=== PATIENT | female | born 2000 ===

== ENCOUNTER 2020-09-18 19:24 | Inpatient (IN) | payer OTHER ==
[~2020-09-18] VITALS: Ht 152 cm; Wt 91.5 kg
[2020-09-18] MEDS ORDERED: D5 LR IV SOLUTION 1,000 ML IV ONE (19:45)
--- NOTE | 2020-09-18 19:45 | NUR ---
NANCY DIALLO presented to unit via ambulatory from ED, accompanied by s/o, with c/o INDUCTION 40 12/22 NANCY DIALLO weighed, gowned, voided, and to bed. EFHM and TOCO applied, VS taken. NANCY DIALLO oriented to bed controls, call light, TV, heat, and A/C controls.
[2020-09-18] MEDS ORDERED: LACTATED RINGERS 1,000 ML IV SCH (19:58)
[2020-09-18 20:00] VITALS: BP 137/71
[2020-09-18] MEDS ORDERED: MINERAL OIL CONCENTRATE 99.9% 15 ML UDC TOP PRN (20:00)
[2020-09-18] MEDS ORDERED: MISOPROSTOL 100 MCG (CYTOTEC) TAB PO NR (20:00)
[2020-09-18 20:17] LABS: BASOPHILS % (AUTO) 1 % (0-10); EOSINOPHILS # (AUTO) 0.3 10^3/uL (0.0-0.3); EOSINOPHILS % (AUTO) 3 % (0-10); HEMATOCRIT 32 % (35-52); HEMOGLOBIN 10.8 g/dL (11.5-16.0); LYMPHOCYTES # (AUTO) 2.5 10^3/uL (1.0-4.0); LYMPHOCYTES % (AUTO) 34 % (12-44); MEAN CORPUSCULAR HEMOGLOBIN 29 pg (25-34); MEAN CORPUSCULAR HGB CONC 34 g/dL (32-36); MEAN CORPUSCULAR VOLUME 87 fL (80-99); MEAN PLATELET VOLUME 11.1 fL (9.0-12.2); MONOCYTES # (AUTO) 0.6 10^3/uL (0.0-1.0); MONOCYTES % (AUTO) 8 % (0-12); NEUTROPHILS # (AUTO) 4.1 10^3/uL (1.8-7.8); NEUTROPHILS % (AUTO) 55 % (42-75); PLATELET COUNT 185 10^3/uL (130-400); WHITE BLOOD COUNT 7.6 10^3/uL (4.3-11.0)
[2020-09-18] MEDS: D5 LR IV SOLUTION 1,000 ML IV SCH (20:18)
[2020-09-18 20:39] VITALS: BP 137/71
[2020-09-18 21:30] VITALS: BP 122/84
[2020-09-18 22:30] VITALS: BP 122/58
[2020-09-18 23:30] VITALS: BP 130/61
[2020-09-19] VITALS (83 sets, daily range): BP systolic 68–214; BP diastolic 32–103
[2020-09-19] MEDS ORDERED: MISOPROSTOL 100 MCG (CYTOTEC) TAB PO SCH
[2020-09-19] MEDS ORDERED: BUTORPHANOL INJ 2 MG/ML (STADOL) VIAL ONE ×2 (01:00→04:47)
[2020-09-19] MEDS ORDERED: BUTORPHANOL INJ 2 MG/ML (STADOL) VIAL IV ONE ×2 (01:15→05:00)
[2020-09-19] MEDS: D5 LR IV SOLUTION 1,000 ML IV SCH ×2 (04:08→12:05)
--- NOTE | 2020-09-19 07:10 | NUR ---
Report from Arlen Cheng RN
--- NOTE | 2020-09-19 07:40 | NUR ---
Dr Jones at bedside discussing plan of pt care with pt and SO. Dr Jones has talked with Dr Ferreira. Plan is to get epidural first, Start pitocin, then AROM. Pt states she does not want to feel anything with labor. RN and Dr Jones both (at separate times) informed pt that that was an unrealistic expectation. Discussed how the epidural worked, ideally should take away sharp pain with contractions but will most likely still feel pressure. LR bolus started for epidural placement. Anesthesia notified of pt wanting epidural. Pt aware that anesthesia is in a procedure right now and will get epidural after anesthesia is finished with their procedure.
--- NOTE | 2020-09-19 08:17 | NUR ---
Dr Matute, information tech for OB today, notified of pt and current report
--- NOTE | 2020-09-19 08:34 | History & Physical-OB/GYN ---
GRZEGORZ JONES MD 09/19/20 0834: History of Present Illness History of Present Illness Reason for visit/HPI induction of labor for post dates Date of Admission Sep 18, 2020 at 19:24 Date Seen by a Provider: Sep 19, 2020 Time Seen by a Provider: 08:24 I consulted on this patient on 09/19/20 08:23 Attending Physician Antionette Ferreira MD Admitting Physician No,Local Physician Consult Patient presented to labor and delivery for scheduled induction of labor. She had Cytotec given orally x2 doses. She is now feeling her contractions somewhat and desires an epidural. She is very anxious about starting pitocin or feeling any pain during her delivery. Otherwise, no other complaints. Allergies and Home Medications Allergies Coded Allergies: No Known Drug Allergies (Unverified , 09/18/20) Patient Home Medication List Home Medication List Reviewed: Yes Past Tadsbrr-Hqihib-Qqxala Hx Patient Social History Alcohol Use: Denies Use Recreational Drug Use: No Smoking Status: Never a Smoker Physical Abuse Screen: No Sexual Abuse: No Recent Foreign Travel: No Contact w/other who traveled: No Recent Infectious Disease Expo: No Immunizations Up To Date Date of Influenza Vaccine: Jul 16, 2020 Seasonal Allergies Seasonal Allergies: No Surgeries No Respiratory No Cardiovascular No Neurological No Reproductive System Expected Date of Delivery: Sep 16, 2020 Genitourinary No Gastrointestinal No Musculoskeletal No Endocrine History of Endocrine Disorders: No HEENT History of HEENT Disorders: No Cancer No Psychosocial History of Psychiatric Problem: Yes Behavioral Health Disorders: Depression Integumentary History of Skin or Integumenta: No Blood Transfusions History of Blood Disorders: No Adverse Reaction to a Blood Tr: No Family Medical History Family Hx: Diabetes mellitus 19 FATHER 19 MOTHER Review of Systems Constitutional: no symptoms reported EENTM: no symptoms reported Respiratory: no symptoms reported Cardiovascular: no symptoms reported Gastrointestinal: no symptoms reported Genitourinary: no symptoms reported : Yes Musculoskeletal: no symptoms reported Skin: no symptoms reported Psychiatric/Neurological: No Symptoms Reported, Anxiety Physical Exam Physical Exam Vital Signs Vital Signs Date Time Temp Pulse Resp B/P (MAP) Pulse Ox O2 Delivery O2 Flow Rate FiO2 09/19/20 06:30 78 18 110/57 (74) Room Air 09/19/20 05:30 36.3 78 18 108/78 (88) Room Air 09/19/20 04:30 83 18 119/74 (89) Room Air 09/19/20 03:30 88 18 132/63 (86) Room Air 09/19/20 02:30 86 18 127/57 (80) Room Air 09/19/20 01:30 85 18 123/67 (85) Room Air 09/19/20 00:30 36.5 80 18 139/77 (97) Room Air 09/18/20 23:30 80 18 130/61 (84) Room Air 09/18/20 22:30 79 18 122/58 (79) Room Air 09/18/20 21:30 88 18 122/84 (97) Room Air 09/18/20 20:39 36.5 102 18 98 Room Air 09/18/20 20:00 36.5 102 18 137/71 (93) Room Air Capillary Refill : Less Than 3 Seconds Labs Laboratory Tests 09/18/20 20:00: White Blood Count 7.6, Red Blood Count 3.67L, Hemoglobin 10.8L, Hematocrit 32L, Mean Corpuscular Volume 87, Mean Corpuscular Hemoglobin 29, Mean Corpuscular Hemoglobin Concent 34, Red Cell Distribution Width 13.1, Platelet Count 185, Mean Platelet Volume 11.1, Immature Granulocyte % (Auto) 0, Neutrophils (%) (Auto) 55, Lymphocytes (%) (Auto) 34, Monocytes (%) (Auto) 8, Eosinophils (%) (Auto) 3, Basophils (%) (Auto) 1, Neutrophils # (Auto) 4.1, Lymphocytes # (Auto) 2.5, Monocytes # (Auto) 0.6, Eosinophils # (Auto) 0.3, Basophils # (Auto) 0.0, Immature Granulocyte # (Auto) 0.0 General Appearance: No Apparent Distress Respiratory: No Accessory Muscle Use, No Respiratory Distress Cardiovascular: Normal Peripheral Pulses Abdominal: non tender, soft Labia: WNL Vagina: WNL Cervix OS: open Extremity: Normal Range of Motion, Non Tender Assessment/Plan Assessment and Plan 20 y/o at 40w3d by LMP (QUINN 09/16/20) admitted for induction of labor due to post dates - A+, Ab-, RI, GC/Ct -/-, RPR-, Hep B-, HIV-, GBS- - s/p flu and Tdap - initial cervical check by nursing staff 2/50%/-1; s/p Cytotec PO x2 doses overnight - Admit, CLD, D5LR, CEFM/TOCO, anesthesia consult for epidural - Category 1 strip, FHR 125, moderate variability; 3 contractions in 10 minutes - Plan for next check after epidural; will start Pitocin and likely AROM if well engaged at next check patient seen and discussed with Dr. Hanna Jones MD [facility] Resident Physician, PGY-2 Problems: (1) Elective induction of labor planned Admission Diagnosis Elective induction of labor for post dates Admission Status: Inpatient Order (span 2 midnights) Reason for Inpatient Admission: Induction of labor for post dates Diagnosis/Problems Diagnosis/Problems (1) Elective induction of labor planned Clinical Quality Measures DVT/VTE Risk/Contraindication: Risk Factor Score Per Nursin RFS Level Per Nursing on Admit: 1=Low/No VTE PPX ANTIONETTE FERREIRA MD 09/20/20 1006: Allergies and Home Medications Allergies Coded Allergies: No Known Drug Allergies (Unverified , 09/18/20) Past Mqledwo-Ixoltw-Hwbwby Hx Family Medical History Family Hx: Diabetes mellitus 19 FATHER 19 MOTHER Supervisory-Addendum Brief Supervisory Addendum Verification and Attestation of Medical Student E/M Service A Resident Physician performed and documented this service in my presence. I reviewed and verified all information documented by the medical student and made modifications to such information, when appropriate. I personally performed the physical exam and medical decision making. Antionette Ferreira, Sep 20, 2020,10:06 GRZEGORZ JONES MD Sep 19, 2020 08:34 ANTIONETTE FERREIRA MD Sep 20, 2020 10:06
[2020-09-19] MEDS ORDERED: fentaNYL 2 mcg/ml BUPIVA 0.125 100 ML ONE (08:51)
[2020-09-19] MEDS: fentaNYL 2 mcg/ml BUPIVA 0.125 100 ML EPI PRN ×2 (09:22→17:17)
[2020-09-19] MEDS ORDERED: LACTATED RINGERS 1,000 ML IV SCH (09:28)
[2020-09-19] MEDS ORDERED: OXYTOCIN PRE-MIX DRIP 500 ML IV ONE (09:30)
[2020-09-19] MEDS ORDERED: NALOXONE 0.4 MG/ML 1 ML (NARCAN) VIAL IV PRN ×2 (09:30)
[2020-09-19] MEDS ORDERED: METOCLOPRAMIDE INJ 10 MG/2 ML (REGLAN) IV PRN (09:30)
[2020-09-19] MEDS ORDERED: diphenhydrAMINE 50 MG/ML INJ (BENADRYL) IV PRN (09:30)
[2020-09-19] MEDS ORDERED: ONDANSETRON 4 MG/2 ML (SDV) Z0FRAN IV PRN (09:30)
[2020-09-19] MEDS ORDERED: EPIDURAL (fentaNYL 2 MCG/ML BUPIVA 0.125%)100 ML BAG EPI SCH (09:30)
[2020-09-19] MEDS ORDERED: OXYTOCIN PRE-MIX DRIP 500 ML IV SCH (09:32)
--- NOTE | 2020-09-19 09:52 | Labor Progress Note ---
GRZEGORZ JONES MD 09/19/20 0952: Labor Progress Note Labor Progress Note Date Seen by Provider: Sep 19, 2020 Time Seen by Provider: 09:50 Subjective: Epidural is in place, not feeling any contractions. She is having a little bit of nausea, thinks this is due to her contractions. Objective: (Can we insert 24 hour vitals here?) Cervical exam: 3/75%/-2 Consistency: soft Position: mid Presentation: cephalic heart tones: 130 beats per minute, moderate variability, reactive Tocometer: 3 ctx/10 minutes - s/p AROM w/ clear fluid at 09:45 Assessment/Plan: Yecenia Urena is a (20 /Para 12/9 ,Gestational Age (wks)40 here for induction of labor. CEFM/TOCO Start pitocin Anesthesia: epidural Anticipate vaginal delivery. Next check in 2-4 hours or as clinically indicated d/w Dr. Hanna Jones MD [facility] Resident Physician, PGY-2 Vitals - Labs Vital Signs - I&O Vital Signs Date Time Temp Pulse Resp B/P (MAP) Pulse Ox O2 Delivery O2 Flow Rate FiO2 09/19/20 06:30 78 18 110/57 (74) Room Air 09/19/20 05:30 36.3 78 18 108/78 (88) Room Air 09/19/20 04:30 83 18 119/74 (89) Room Air 09/19/20 03:30 88 18 132/63 (86) Room Air 09/19/20 02:30 86 18 127/57 (80) Room Air 09/19/20 01:30 85 18 123/67 (85) Room Air 09/19/20 00:30 36.5 80 18 139/77 (97) Room Air 09/18/20 23:30 80 18 130/61 (84) Room Air 09/18/20 22:30 79 18 122/58 (79) Room Air 09/18/20 21:30 88 18 122/84 (97) Room Air 09/18/20 20:39 36.5 102 18 98 Room Air 09/18/20 20:00 36.5 102 18 137/71 (93) Room Air Labs Laboratory Tests 09/18/20 20:00: White Blood Count 7.6, Red Blood Count 3.67L, Hemoglobin 10.8L, Hematocrit 32L, Mean Corpuscular Volume 87, Mean Corpuscular Hemoglobin 29, Mean Corpuscular Hemoglobin Concent 34, Red Cell Distribution Width 13.1, Platelet Count 185, Mean Platelet Volume 11.1, Immature Granulocyte % (Auto) 0, Neutrophils (%) (Auto) 55, Lymphocytes (%) (Auto) 34, Monocytes (%) (Auto) 8, Eosinophils (%) (Auto) 3, Basophils (%) (Auto) 1, Neutrophils # (Auto) 4.1, Lymphocytes # (Auto) 2.5, Monocytes # (Auto) 0.6, Eosinophils # (Auto) 0.3, Basophils # (Auto) 0.0, Immature Granulocyte # (Auto) 0.[address] MD 09/20/20 1017: Supervisory-Addendum Brief Supervisory Addendum Verification and Attestation of Medical Student E/M Service A Resident Physician performed and documented this service in my presence. I reviewed and verified all information documented by the medical student and made modifications to such information, when appropriate. I personally performed the physical exam and medical decision making. Antionette Way, Sep 20, 2020,10:07 I arrived on the floor at 1800. SVE at that time was 6/75/-2. She was feeling more pressure but otherwise pain was well controlled. Blood pressures were increasing in the last few hrs. Last temp 37. After 30 mins baby continued to be tachycardic in the 180s. Re evaluation and patient was having rigors. Temp at this time was 39.9. Tylenol ordered. Covid/Flu swabs ordered. Blood pressure recycled and patient had blood pressure 180s/100s. Stat Labs ordered and IV labetalol/Amp/Gentamicin given. Blood pressure responded and patient continued to be febrile. Dr Matute was notified of change of status and OR team was called. Repeat blood pressure 200s/100s and Magnesium bolus given. Call for C/s made and patient taken back. I was present for delivery and Dr Abbott was also present for delivery. GRZEGORZ JONES MD Sep 19, 2020 09:[address] MD Sep 20, 2020 10:17
--- NOTE | 2020-09-19 10:22 | NUR ---
This RN calls Dr Ferreira with pt report. Dr Jones, Resident preformed SVE and AROM approx 0745. Dr Jones states he stretched to 3cm/75/-2. FHT down to 70bpm during SVE/AROM then recurrent variables to 60-70bpm with each UC immediately following SVE/AROM. Variables resolved approx 1010 after O2, fluid bolus, and position changes. This RN preforms SVE after placing ayala catheter, finding cervix tight 2cm/60/-2. Pitocin NOT started as ordered due to FHT; RN letting baby recover at this time. Will reevaluate at approx [id number] if FHT remain okay. Current FHT strip described to Dr Ferreira in detail. Dr Ferreira agreed with plan to hold off on pitocin at this time and possibly restart in 30 min. No new orders received.
[2020-09-19] MEDS: ONDANSETRON 4 MG/2 ML (SDV) Z0FRAN IVP PRN (12:42)
[2020-09-19] MEDS ORDERED: ONDANSETRON 4 MG/2 ML (SDV) Z0FRAN IVP PRN (12:45)
--- NOTE | 2020-09-19 14:35 | NUR ---
Dr Ferreira updated on pt report by this RN. Pt CO vaginal pain with UC. SVE by this RN . RN will call anesthesia for epidural evaluation/bolus dose. Pitocin rate at 12/hr, UC 1.5-2.5 min. Reactive FHT strip. No new orders received.
--- NOTE | 2020-09-19 14:41 | NUR ---
Rony Napier notified for epidural evaluation. Pt CO pain 06/24 with UC. RN has given 2 bolus doses without relief.
[2020-09-19] MEDS ORDERED: BUPIVACAINE 0.25% 30 ML (SENSORCAINE) VIAL ONE ×2 (14:48→19:40)
--- NOTE | 2020-09-19 14:50 | NUR ---
Dr Rony Fatima at bedside for epidural evaluation/dose admin
--- NOTE | 2020-09-19 15:36 | NUR ---
Odin Irizarry, Anesthesia shift production supervisor, called by this RN. Pt still not receiving pain relief after Niederklein dose and rate changed about 20-30 min ago. Odin KUMAR states he will come in to talk to pt about replacing epidural. Odin at bedside at 6000
--- NOTE | 2020-09-19 17:45 | NUR ---
Dr Jones at bedside. Review FHT strip and VS with this RN. Pitocin rate decreased to [address] Jones updates Dr Ferreira on pt report. Dr Ferreira coming to see pt.
--- NOTE | 2020-09-19 17:45 | NUR ---
Dr Ferreira updated on pt report by this rn and dr gore. Dr gore SVE . epidural replaced, severe hypotension after epidural replacement. 10mg ephedrine admin at 1610. FHT now tachy. Dr Ferreira on her way to see pt.
[2020-09-19] MEDS ORDERED: LACTATED RINGERS 500 ML IV SCH (18:00)
--- NOTE | 2020-09-19 18:00 | NUR ---
Dr Jones and this RN at bedside. 500ml LR bolus started per Dr Jones order. Marked variability, increase in FHR. Dr Jones reviewing FHT strip and updating Dr Ferreira.
--- NOTE | 2020-09-19 18:30 | NUR ---
Dr Ferreira on unit at 1820. RN updates Dr Ferreira on pt status. VS and FHT strip reviewed with Dr Ferreira.
[2020-09-19] MEDS ORDERED: LABETALOL HCL 20 MG/4 ML VIAL IV ONE (19:00)
--- NOTE | 2020-09-19 19:00 | NUR ---
Dr Ferreira at bedside. SVE by dr ferreira: 6 cm. Temp rechecked: 39.7C ( 103.4F). Dr Ferreira talks to pt about plan of care, will call and talk to Dr Matute, OB mayonnaise mixer for CSection. Dr Ferreira notified of pt current blood pressures: 212/93 at 1854, 214/96 at 1858. Labetolol ordered. Amp and Gent ordered. Mag ordered. Giovani called for CS. Calling surgery crew for CS. COVID ordered, repeat labs. Room setup for PUI. This RN gives report to Arlen Cheng RN at 1905. Beginning to prepare pt for Csection surgery & obtain consent for surgery.
[2020-09-19] MEDS ORDERED: AMPICILLIN 2,000 MG/14.8 ML (IV USE) ONE (19:01)
[2020-09-19] MEDS ORDERED: LABETALOL HCL 20 MG/4 ML VIAL ONE (19:01)
--- NOTE | 2020-09-19 19:05 | NUR ---
Pt report given to heladio johnston at bedside.
[2020-09-19] MEDS: AMPICILLIN FOR IV USE 2,000 MG in WATER (STERILE) FOR INJECTION 14.8 ML IV SCH (19:07)
[2020-09-19] MEDS ORDERED: ACETAMINOPHEN 500 MG TAB (TYLENOL) ONE (19:18)
[2020-09-19] MEDS ORDERED: MAGNESIUM 4 GM/100 ML IVPB 100 ML IV ONE (19:19)
[2020-09-19] MEDS ORDERED: NS IV 1000 ML 1,000 ML ONE (19:23)
[2020-09-19] MEDS ORDERED: ACETAMINOPHEN 500 MG TAB (TYLENOL) PO PRN (19:30)
[2020-09-19] MEDS ORDERED: GENTAMICIN IV SCH (19:30)
[2020-09-19] MEDS ORDERED: metroNIDAZOLE 500 MG (FLAGYL) TAB PO SCH (19:30)
[2020-09-19] MEDS ORDERED: MAGNESIUM 4 GM/100 ML IVPB 100 ML IV SCH (19:30)
[2020-09-19] MEDS ORDERED: D5W IV SCH (19:30)
[2020-09-19] MEDS ORDERED: CALCIUM GLUC. 10% 4.65 MEQ/10 ML VIAL IV PRN (19:30)
[2020-09-19] MEDS ORDERED: KETAMINE/NaCl 50 MG/5 ML SYRINGE (ED ONLY) ONE (19:36)
[2020-09-19] MEDS ORDERED: LIDOCAINE PF 2% 5 ML (XYLOCAINE) VIAL ONE (19:40)
[2020-09-19] MEDS ORDERED: METOCLOPRAMIDE INJ 10 MG/2 ML (REGLAN) ONE (19:41)
[2020-09-19] MEDS ORDERED: FAMOTIDINE 20MG/2ML IV (PEPCID) ONE (19:42)
[2020-09-19] MEDS ORDERED: ceFAZolin 2 GM IV Premixed 50 ML ONE (19:42)
[2020-09-19] MEDS ORDERED: CITRIC ACID/SOB CIT (BICITRA) 30 ML UDC ONE (19:42)
[2020-09-19] MEDS ORDERED: ceFAZolin 2 GM IV Premixed 50 ML IV ONE (19:45)
[2020-09-19] MEDS ORDERED: FAMOTIDINE 20MG/2ML IV (PEPCID) IV ONE (19:45)
[2020-09-19] MEDS ORDERED: CITRIC ACID/SOB CIT (BICITRA) 30 ML UDC PO ONE (19:45)
[2020-09-19] MEDS ORDERED: METOCLOPRAMIDE INJ 10 MG/2 ML (REGLAN) IV ONE (19:45)
[2020-09-19] MEDS ORDERED: fentaNYL INJECTION 100 MCG/2 ML AMP ONE (19:46)
[2020-09-19] MEDS ORDERED: MAGNESIUM SULFATE DRIP 500 ML IV SCH (19:50)
[2020-09-19 19:58] LABS: BASOPHILS % (AUTO) 0 % (0-10); EOSINOPHILS # (AUTO) 0.1 10^3/uL (0.0-0.3); EOSINOPHILS % (AUTO) 1 % (0-10); HEMATOCRIT 30 % (35-52); HEMOGLOBIN 10.2 g/dL (11.5-16.0); LYMPHOCYTES # (AUTO) 2.5 10^3/uL (1.0-4.0); LYMPHOCYTES % (AUTO) 23 % (12-44); MEAN CORPUSCULAR HEMOGLOBIN 30 pg (25-34); MEAN CORPUSCULAR HGB CONC 34 g/dL (32-36); MEAN CORPUSCULAR VOLUME 87 fL (80-99); MEAN PLATELET VOLUME 10.6 fL (9.0-12.2); MONOCYTES # (AUTO) 0.6 10^3/uL (0.0-1.0); MONOCYTES % (AUTO) 6 % (0-12); NEUTROPHILS # (AUTO) 7.6 10^3/uL (1.8-7.8); NEUTROPHILS % (AUTO) 70 % (42-75); PLATELET COUNT 141 10^3/uL (130-400); WHITE BLOOD COUNT 10.8 10^3/uL (4.3-11.0)
[2020-09-19 20:15] LABS: ALBUMIN 2.9 GM/DL (3.2-4.5); CHLORIDE 108 MMOL/L (98-107); POTASSIUM 3.4 MMOL/L (3.6-5.0); SODIUM 134 MMOL/L (135-145)
[2020-09-19] MEDS ORDERED: CARBOPROST (HEMABATE) 250 MCG/ML AMP IM ONE (20:15)
[2020-09-19] MEDS ORDERED: MISOPROSTOL 200 MCG (CYTOTEC) TABLET ONE (20:15)
[2020-09-19 20:18] LABS: GLUCOSE 81 MG/DL (70-105); TOTAL PROTEIN 5.5 GM/DL (6.4-8.2)
[2020-09-19 20:19] LABS: CARBON DIOXIDE 16 MMOL/L (21-32)
[2020-09-19 20:20] LABS: BILIRUBIN,TOTAL 0.3 MG/DL (0.1-1.0)
[2020-09-19] MEDS ORDERED: ONDANSETRON 4 MG/2 ML (SDV) Z0FRAN ONE (20:20)
[2020-09-19 20:21] LABS: ALKALINE PHOSPHATASE 132 U/L (40-136); CREATININE SERUM 0.94 MG/DL (0.60-1.30); GFR ESTIMATED > 60
[2020-09-19 20:22] LABS: BUN/CREATININE RATIO 11
[2020-09-19 20:24] LABS: ALANINE AMINOTRANSFERASE 7 U/L (0-55); MAGNESIUM 2.3 MG/DL (1.6-2.4)
[2020-09-19 20:25] LABS: URIC ACID 5.8 MG/DL (2.6-7.2)
[2020-09-19] MEDS ORDERED: KETOROLAC 30 MG/ML VIAL ONE (20:31)
[2020-09-19] MEDS ORDERED: MEASLES,MUMPS,RUBELLA 1 EA INJ SC SCH (21:15)
[2020-09-19] MEDS ORDERED: TETANUS,DIPTH,PERTUSS P/F (BOOSTRIX) 0.5 ML VIAL IM SCH (21:15)
--- NOTE | 2020-09-19 21:16 | Consultation ---
History of Present Illness History of Present Illness Patient Consulted On(jillian/time) 09/19/20 21:12 Date Seen by Provider: Sep 19, 2020 Time Seen by Provider: 19:55 Reason for Visit: Induction of labor post dates History of Present Illness This 20 yo female was admitted by Dr. Ferreira for induction of labor, her induction was uncomplicated short of a few elevations in her BP, she progressed to 8 cm/-1 station, but began having temp in the 103, heart variablity became minimal, and her BP spiked. I was contacted for emergent delivery Allergies and Home Medications Allergies Coded Allergies: No Known Drug Allergies (Unverified , 09/18/20) Patient Home Medication List Home Medication List Reviewed: Yes Past Ngmsegq-Jpdltc-Zklirp Hx Patient Social History Alcohol Use: Denies Use Recreational Drug Use: No Smoking Status: Never a Smoker Recent Foreign Travel: No Contact w/Someone Who Travel: No Recent Infectious Disease Expo: No Immunizations Up To Date Date of Influenza Vaccine: Jul 16, 2020 Seasonal Allergies Seasonal Allergies: No Past Medical History Surgeries: No Respiratory: No Cardiac: No Neurological: No Expected Date of Delivery: Sep 16, 2020 Genitourinary: No Gastrointestinal: No Musculoskeletal: No Endocrine: No HEENT: No Cancer: No Psychosocial: Yes Depression Integumentary: No Blood Disorders: No Adverse Reaction/Blood Tranf: No Family Medical History Diabetes mellitus 19 FATHER 19 MOTHER Review of Systems-General Constitutional: see HPI EENTM: see HPI Respiratory: see HPI Cardiovascular: see HPI Gastrointestinal: see HPI Genitourinary: see HPI : Yes Expected Date of Delivery: Sep 16, 2020 Musculoskeletal: see HPI Skin: see HPI Psychiatric/Neurological: See HPI All Other Systems Reviewed Negative Unless Noted: Yes Physical Exam-General Problems Physical Exam Vital Signs Vital Signs - First Documented 09/18/20 09/18/20 20:00 20:39 Temp 36.5 Pulse 102 Resp 18 B/P (MAP) 137/71 (93) Pulse Ox 98 O2 Delivery Room Air Capillary Refill : Less Than 3 Seconds General Appearance: moderate distress HEENT: normal ENT inspection Assessment/Plan Assessment/Plan Admission Diagnosis/Plan Diagnosis: intolerance of labor Uncontrolled intrapartum elevation in BP Acute febrile status P: Rapid COVID negative, confirmatory pending Flu swab Stat discussed with patient, and agreed upon with SO present Admission Status: Inpatient Order (span 2 midnights) Clinical Quality Measures DVT/VTE Risk/Contraindication: Risk Factor Score Per Nursin RFS Level Per Nursing on Admit: 1=Low/No VTE PPX GAIL COSBY DO Sep 19, 2020 21:16
[2020-09-19] MEDS ORDERED: CATHETER FLUSH 10 ML SYR IV SCH (22:00)
--- NOTE | 2020-09-19 22:00 | NUR ---
Pt received from recovery, placed on monitor. Report received from radio time sales supervisor. Pt sats 88-90% on 6L. Pt coherant. Deep breathing and coughing performed. Assessment completed. Lung course. Dry cough noted. FF1 below. light rubra. pt having the urge to have a bm. pt put on bed bear. +bm. pericare completed. new pad placed. RN remains at bedside.
--- NOTE | 2020-09-19 22:41 | NUR ---
Despite 6L per nc pt's o2 sat remains between 88-90%. updated. RT called and notified of pt's status.
[2020-09-19] MEDS ORDERED: RT-ALBUTEROL INHALER HFA (VENTOLIN HFA) 18 GM IH ONE (22:48)
--- NOTE | 2020-09-19 22:50 | NUR ---
RT at bedside to perform assessment and teach IS
--- NOTE | 2020-09-19 23:10 | NUR ---
Pt having the urge to have BM. Bedside commode brought in, Pt assisted to commode. No BM, pericare completed. Pt assisted back to bed.
[2020-09-19] MEDS: HYDROcodone/APAP 5 MG/325 MG (LORTAB) TAB PO PRN (23:24)
[2020-09-19] MEDS: OXYTOCIN PRE-MIX DRIP 500 ML IV SCH (23:27)
[2020-09-20] VITALS (25 sets, daily range): BP systolic 68–137; BP diastolic 41–85
--- NOTE | 2020-09-20 01:00 | NUR ---
IS performed. RN at bedside. o2 sat 93% Attempted to decrease o2 from 4L to 2L, o2 sat dropped to 88%, o2 increased back to 4L
[2020-09-20] MEDS: AMPICILLIN FOR IV USE 2,000 MG in WATER (STERILE) FOR INJECTION 14.8 ML IV SCH (01:23)
[2020-09-20] MEDS ORDERED: RT-ALBUTEROL INHALER HFA (VENTOLIN HFA) 18 GM IH PRN (02:00)
[2020-09-20] MEDS: KETOROLAC 30 MG/ML VIAL IV SCH ×5 (02:52→19:41)
[2020-09-20] MEDS ORDERED: RT-ALBUTEROL INHALER HFA (VENTOLIN HFA) 18 GM IH SCH (03:00)
[2020-09-20] MEDS: D5 LR IV SOLUTION 1,000 ML IV SCH ×5 (03:00→19:41)
[2020-09-20] MEDS: ACETAMINOPHEN 325 MG TABLET PO PRN (03:00)
--- NOTE | 2020-09-20 03:41 | NUR ---
spo2 monitor alarming, spo2 88%. Encouraged pt to take some deep breaths. 02 increased to 90%. IS given to pt to perform.
--- NOTE | 2020-09-20 03:47 | NUR ---
After performing IS o2 sat dropped down to 84% o2 increased 4L per nc
--- NOTE | 2020-09-20 03:52 | NUR ---
o2 remains 86-88% o2 increased to 5L per nc
--- NOTE | 2020-09-20 04:28 | NUR ---
o2 sat's dropped to 85% encouraged pt to take a couple deep breaths. After 2min spo2 increased to 91%. RT called to come perform albuterol inhaler Addendum: 09/20/20 at 0501 by ARLEN ROLDAN RN o2 sat's dropped to 85% encouraged pt to take a couple deep breaths. o2 increased to 6L After 2min spo2 increased to 91%. RT called to come perform albuterol inhaler
--- NOTE | 2020-09-20 04:45 | NUR ---
RT in room to perform albuterol inhaler.
--- NOTE | 2020-09-20 04:50 | NUR ---
After albuterol inhaler, sp02 95%. o2 decreased to 4L
--- NOTE | 2020-09-20 04:58 | NUR ---
RT at bedside to assess patient.
--- NOTE | 2020-09-20 04:59 | OPERATIVE REPORT ---
DATE OF SERVICE: PREOPERATIVE DIAGNOSES: 1. A 20-year-old G2, P0 at 40 weeks' gestation. 2. intolerance of labor. 3. Maternal temperature. 4. tachycardia persistent. POSTOPERATIVE DIAGNOSES: 1. A 20-year-old G2, P0 at 40 weeks' gestation. 2. intolerance of labor. 3. Maternal temperature. 4. tachycardia persistent. PROCEDURE: Primary low transverse section emergent. SURGEON: Dennis Cosby DO ANESTHESIA: Epidural, which was bolused. ESTIMATED BLOOD LOSS: 400 mL. URINE OUTPUT: 100 mL clear at the end of procedure. FLUIDS: 1850 mL of lactated Ringer's solution. FINDINGS: A live female , weight and Apgars pending. Grossly normal appearing uterus, bilateral fallopian tubes and ovaries. SPECIMEN SENT: Placenta with placental cultures. INDICATIONS FOR PROCEDURE: This 20-year-old female is a patient that was induced for postdates by Dr. Ferreira yesterday evening. Her induction was uncomplicated until this afternoon when she had progressed to approximately 7 to 8 cm, at which point she began having elevations and spikes in her blood pressure followed by elevation in her temperature. She was as high as 103 degrees Fahrenheit. At this point, heart rate became tachycardic as well with minimal to moderate variability. I was consulted for discussion of emergent delivery. When I presented and spoke with the patient, she appeared in moderate distress, was uncomfortable and was slightly apneic. After checking the patient, she was found to be 8 cm dilated; however, 0 to -1 station and I felt that she still had quite a bit of time to go before vaginal delivery were to occur. I discussed with the patient into my concerns with waiting due to her declining status and recommended proceeding with emergency . Risks of procedure were discussed with the patient in detail including risk of bleeding, infection, damage to surrounding structures including, but not limited to bowel, bladder, ureter, kidneys, possible need for reoperation, postoperative complications that may occur, recovery timeframe, risk from anesthesia, possible need for blood transfusion and even . After everything was discussed with the patient in detail, consent was obtained in the preoperative area and the patient was taken to the operating room. OPERATIVE REPORT IN DETAIL: Once in the operating room, epidural analgesia was found to be adequate. She was placed in supine position with leftward tilt, prepped and draped in normal sterile fashion. Timeout was performed. Anesthesia was tested. I then proceeded with making a Pfannenstiel skin incision with a knife and carried down to underlying fascia using the knife. The fascial incision was made with a knife and extended laterally using blunt traction. I bluntly dissect between the underlying rectus muscles and I am able to separate them with blunt traction. I then entered the peritoneum with blunt dissection and extended with blunt traction as well. An Franko ring retractor was placed within the peritoneal incision, which offers excellent lateral sidewall retraction. I then identified the lower uterine segment, which was found to be thinned out and make a low transverse incision to the vesicouterine peritoneum and bluntly dissected off the lower uterine segment. I proceeded with myotomy until membranes were visualized, at which point I extended the uterine incision laterally and superiorly using bandage scissors. The was found in the vertex presentation. With gentle fundal pressure, the 's head was elevated up to the incision where the nares and oropharynx were bulb suctioned. Anterior and posterior shoulders were delivered. was then brought to the operative field. The cord was doubly clamped and cut. was handed off to waiting nurses in attendance and Dr. Ferreira who was present for delivery. Cord blood was collected, 3-vessel cord with intact placenta was delivered spontaneously thereafter. IV Pitocin was initiated to facilitate uterine contraction. The uterus was significantly boggy. Therefore, I ordered 250 mg of Hemabate to be given IM, after which there was some uterine tone that was noted. Once the uterus was exteriorized and cleared of all endometrial clots and debris, I proceeded with closing the uterine incision using 0 Vicryl suture in running locked fashion. Second layer of imbricating 0 Monocryl was placed. Excellent hemostasis was noted after doing this. I then placed the uterus back in the pelvis and copiously irrigated the pelvis using normal saline. Once again, there was no active bleeding noted from any of my dissection planes. I placed Interceed antiadhesive over my low transverse incision and then proceeded with closing the peritoneum after removing the Franko ring retractor. The peritoneum was reapproximated using 0 Vicryl suture in a running fashion. The rectus muscle reapproximated using 3-0 Vicryl suture in interrupted fashion. The fascia was reapproximated using 0 Vicryl suture in a running fashion. Subcutaneous tissue was reapproximated using 3-0 plain interrupted subcutaneous stitch and skin reapproximated using mayra. The patient tolerated the procedure well. Due to COVID testing pending, she was left to recover in the OR room with a recovery nurse. Initial COVID rapid test was negative. She was continued on IV antibiotics, ampicillin and gentamicin. Two grams of Ancef given preoperatively for infection prophylaxis. Magnesium was stopped at the end of the procedure due to the patient's decreased oxygen saturation and my concerns of lack of respiratory drive with magnesium infusion. On 5 liters of nasal cannula, she was satting 92% to 93%; however. Her temperature did come down after the procedure to approximately 99 degrees Fahrenheit. Job ID: [id number] DocumentID: [id number] Dictated Date: 09/19/2020 21:40:59 Wax Ball Knock Out Worker Date: 09/20/2020 04:58:46 Dictated By: DENNIS COSBY DO
--- NOTE | 2020-09-20 04:59 | NUR ---
Bubbler added to oxygen at 4L, Flutter device started with patient per rt
--- NOTE | 2020-09-20 05:16 | NUR ---
Resident in to assess patient. States he will update
--- NOTE | 2020-09-20 05:30 | NUR ---
Pt has the urge to void, 02 increased to 6L for ambulation process to bedside commode. Pt assisted to bedside commode. positive void. pericare completed. sp02 dropped to 80% during process. Pt assisted back to bed. Encouraged deep breathing. after 3min o2 sat increased to 90%
[2020-09-20] MEDS: HYDROcodone/APAP 5 MG/325 MG (LORTAB) TAB PO PRN (05:42)
--- NOTE | 2020-09-20 06:00 | NUR ---
Computer Assistant notified of bed request. Pt assigned room icu room 12.
--- NOTE | 2020-09-20 06:15 | NUR ---
at bedside discussing plan of care. During conversation, pt having a difficult time talking and maintaining sat. o2 sat dropped to 85%.
--- NOTE | 2020-09-20 06:20 | NUR ---
Abdominal drsg removed. incision well approximated. clips intact.
[2020-09-20 06:33] LABS: BASOPHILS # (AUTO) 0.1 10^3/uL (0.0-0.1); BASOPHILS % (AUTO) 1 % (0-10); EOSINOPHILS # (AUTO) 0.1 10^3/uL (0.0-0.3); EOSINOPHILS % (AUTO) 1 % (0-10); HEMATOCRIT 28 % (35-52); HEMOGLOBIN 9.5 g/dL (11.5-16.0); LYMPHOCYTES # (AUTO) 1.8 10^3/uL (1.0-4.0); LYMPHOCYTES % (AUTO) 17 % (12-44); MEAN CORPUSCULAR HEMOGLOBIN 30 pg (25-34); MEAN CORPUSCULAR HGB CONC 34 g/dL (32-36); MEAN CORPUSCULAR VOLUME 89 fL (80-99); MONOCYTES # (AUTO) 0.5 10^3/uL (0.0-1.0); MONOCYTES % (AUTO) 5 % (0-12); NEUTROPHILS # (AUTO) 8.1 10^3/uL (1.8-7.8); NEUTROPHILS % (AUTO) 77 % (42-75); PLATELET COUNT 140 10^3/uL (130-400); WHITE BLOOD COUNT 10.6 10^3/uL (4.3-11.0)
[2020-09-20] MEDS ORDERED: [UNRECOGNIZED DRUG - REMARK] XX NR (07:00)
[2020-09-20 07:06] LABS: ALBUMIN 2.3 GM/DL (3.2-4.5)
--- NOTE | 2020-09-20 07:06 | Pulmonary Consultation ---
History of Present Illness History of Present Illness Date Seen by Provider: Sep 20, 2020 Time Seen by Provider: 07:00 Date of Admission Reason for Visit: Induction of labor post dates History of Present Illness 20yo G2, P0 presented at 40 weeks gestation and admitted for induction however infant was not tolerating labor so pt went for emergent . Through the night pt has been requiring increasing amounts of oxygen and has also been running a fever. Her cough started abruptly this morning and her tmax was 40.1 last night. CXR shows extensive bilateral infiltrates. Rapid COVID is negative. COVID PCR is pending. No prior episodes. Upon ICU admission pt is requiring 100% oxygen via NRB. I am consulted for pulmonary management. Allergies and Home Medications Allergies Coded Allergies: No Known Drug Allergies (Unverified , 09/18/20) Past Rgtzxlh-Rizqqm-Llsscc Hx Patient Social History Alcohol Use: Denies Use Recreational Drug Use: No Smoking Status: Never a Smoker Recent Foreign Travel: No Contact w/Someone Who Travel: No Recent Infectious Disease Expo: No Immunizations Up To Date Date of Influenza Vaccine: Jul 16, 2020 Seasonal Allergies Seasonal Allergies: No Past Medical History Surgeries: No Respiratory: No Currently Using CPAP: No Currently Using BIPAP: No Cardiac: No Neurological: No Expected Date of Delivery: Sep 16, 2020 Genitourinary: No Gastrointestinal: No Musculoskeletal: No Endocrine: No HEENT: No Cancer: No Psychosocial: Yes Depression Integumentary: No Blood Disorders: No Adverse Reaction/Blood Tranf: No Family Medical History Diabetes mellitus 19 FATHER 19 MOTHER Review of Systems Time Seen by Provider: 07:19 Constitutional: Fever, Chills, Sweats, Weakness, Malaise Eyes: No: Pain, Vision change, Conjunctivae inflammation, Eyelid inflammation, Other, Redness ENT: Nose congestion Respiratory: Cough, Dry, Shortness of breath, SOB with excertion; No: Wheezing, Hemoptysis, Sputum Cardiovascular: Palpitations, Paroxysmal Noc. Dyspnea; No: Chest Pain Gastrointestinal: Nausea; No: Vomiting, Abdominal Pain, Diarrhea, Constipation Sepsis Event Evaluation Height, Weight, BMI Height: '" Weight: lbs. oz. kg; 39.60 BMI Method: Exam Exam Vital Signs Date Time Temp Pulse Resp B/P (MAP) Pulse Ox O2 Delivery O2 Flow Rate FiO2 09/20/20 06:10 36.6 81 24 104/52 (69) 93 Nasal Cannula 6.00 09/20/20 05:00 94 26 111/62 (78) 93 Nasal Cannula 4.00 09/20/20 04:25 85 Nasal Cannula 5.00 09/20/20 04:00 94 20 104/49 (67) 89 Nasal Cannula 5.00 09/20/20 03:57 88 20 90 Nasal Cannula 5.00 09/20/20 03:43 36.4 93 20 97/49 (65) 91 Nasal Cannula 3.00 09/20/20 02:40 36.5 97 20 100/51 (67) 91 Nasal Cannula 3.00 09/20/20 01:25 93 Nasal Cannula 3.00 09/20/20 01:00 95 20 116/54 (74) 92 Nasal Cannula 4.00 09/20/20 00:15 92 Nasal Cannula 4.00 09/20/20 00:00 36.8 97 20 115/54 (74) 94 Nasal Cannula 6.00 09/19/20 23:00 94 20 126/72 (90) 90 Nasal Cannula 6.00 09/19/20 22:45 93 20 113/64 (80) 90 Nasal Cannula 6.00 09/19/20 22:30 37.2 95 92 09/19/20 22:30 109 20 109/54 (72) 88 Nasal Cannula 6.00 09/19/20 22:30 92 Nasal Cannula 6.00 09/19/20 22:00 90 6.00 09/19/20 22:00 37.2 95 20 125/74 (91) 89 Nasal Cannula 6.00 09/19/20 21:40 37.3 24 124/58 (80) 92 Nasal Cannula 6 09/19/20 21:40 Nasal Cannula 6 09/19/20 21:30 37.8 24 138/75 (96) 91 Nasal Cannula 6 09/19/20 21:30 Nasal Cannula 6 09/19/20 21:20 28 129/70 (89) 92 Nasal Cannula 4 09/19/20 21:20 Nasal Cannula 4 09/19/20 21:10 Nasal Cannula 4 09/19/20 21:10 37.4 23 132/70 (90) 94 Nasal Cannula 4 09/19/20 21:00 37.6 26 137/74 (95) 91 Nasal Cannula 6 09/19/20 21:00 Nasal Cannula 6 09/19/20 20:50 Nasal Cannula 6 09/19/20 20:50 30 133/72 (92) 92 Nasal Cannula 6 09/19/20 20:41 Nasal Cannula 8 09/19/20 20:41 37.7 28 136/74 (94) 91 Nasal Cannula 8 09/19/20 19:57 106 20 97/47 (64) 94 Room Air 09/19/20 19:56 106 22 97/47 (64) 09/19/20 19:52 115 20 131/67 (88) 98 Room Air 09/19/20 19:45 114 20 141/77 (98) 100 Room Air 09/19/20 19:45 114 20 141/77 (98) 09/19/20 19:37 40.1 113 20 196/89 (124) 100 Room Air 09/19/20 19:32 110 20 178/82 (114) 100 Room Air 09/19/20 19:27 106 182/90 (120) 100 Room Air 09/19/20 19:18 113 138/93 (108) 99 Room Air 09/19/20 19:12 111 170/83 (112) 99 Room Air 09/19/20 19:00 39.7 122 18 195/81 (119) 100 Room Air 09/19/20 18:58 122 214/96 (135) 100 Room Air 09/19/20 18:54 131 212/93 (132) 100 Room Air 09/19/20 18:45 115 18 168/91 (116) 100 Room Air 09/19/20 18:30 114 177/90 (119) 100 Room Air 09/19/20 18:15 37.7 111 18 170/86 (114) 100 Room Air 09/19/20 18:00 119 133/88 (103) 100 Room Air 09/19/20 17:45 37.6 113 16 151/81 (104) 100 Room Air 09/19/20 17:30 103 149/80 (103) 100 Room Air 09/19/20 17:15 112 148/69 (95) 100 Room Air 09/19/20 17:05 109 142/68 (92) 100 Room Air 09/19/20 17:03 104 166/74 (104) 100 Room Air 09/19/20 17:00 107 115/66 (82) 100 Room Air 11/5/20 16:50 111 126/62 (83) Room Air 09/19/20 16:47 112 152/69 (96) 98 Room Air 09/19/20 16:45 107 113/53 (73) 100 Room Air 09/19/20 16:30 37.7 117 16 110/56 (74) 100 Room Air 09/19/20 16:25 113 99/53 (68) 100 Room Air 09/19/20 16:20 104 111/59 (76) 100 Room Air 09/19/20 16:15 121 132/103 (113) 99 Room Air 09/19/20 16:12 88 68/32 (44) 100 Room Air 09/19/20 16:10 80 79/37 (51) 100 Room Air 09/19/20 16:00 115 133/86 (102) 100 Room Air 09/19/20 15:45 126 22 100 Room Air 09/19/20 15:30 Room Air 09/19/20 15:15 Room Air 09/19/20 15:00 96 123/72 (89) Room Air 09/19/20 14:45 88 128/61 (83) Room Air 09/19/20 14:30 Room Air 09/19/20 14:15 85 136/63 (87) Room Air 09/19/20 14:00 86 137/63 (87) Room Air 09/19/20 13:45 90 Room Air 09/19/20 13:30 90 121/57 (78) Room Air 09/19/20 13:15 37.0 Room Air 09/19/20 13:00 90 133/58 (83) Room Air 09/19/20 12:45 92 135/81 (99) Room Air 09/19/20 12:30 96 137/85 (102) 100 Room Air 09/19/20 12:15 87 122/62 (82) Room Air 09/19/20 12:00 36.8 82 132/67 (88) Room Air 09/19/20 11:45 83 132/70 (90) Room Air 09/19/20 11:30 81 124/58 (80) Room Air 09/19/20 11:15 85 130/77 (94) Room Air 09/19/20 11:00 81 16 132/77 (95) Room Air 09/19/20 10:45 88 109/56 (73) Room Air 09/19/20 10:30 79 112/55 (74) Room Air 09/19/20 10:15 80 124/58 (80) Room Air 09/19/20 10:10 79 128/58 (81) 100 Non Rebreather 09/19/20 10:05 83 128/60 (82) Room Air 09/19/20 10:00 36.5 90 114/62 (79) Room Air 09/19/20 09:55 83 102/56 (71) 98 Room Air 09/19/20 09:50 83 114/57 (76) Room Air 09/19/20 09:45 84 112/57 (75) Room Air 09/19/20 09:42 95 109/56 (73) Room Air 09/19/20 09:39 82 107/53 (71) 97 Room Air 09/19/20 09:36 80 118/56 (76) 100 Room Air 09/19/20 09:33 96 111/60 (77) 100 Room Air 09/19/20 09:30 98 112/57 (75) 99 Room Air 09/19/20 09:27 90 120/64 (82) 99 Room Air 09/19/20 09:24 92 118/63 (81) 99 Room Air 09/19/20 09:15 92 135/67 (89) Room Air 09/19/20 09:00 91 145/84 (104) Room Air 09/19/20 07:30 36.8 80 18 136/75 (95) 99 Room Air I & O 09/20/20 07:00 Intake Total 3559.6 ml Output Total 850 ml Balance 2709.6 ml Height & Weight Height: '" Weight: lbs. oz. kg; 39.60 BMI Method: General Appearance: Moderate Distress, Other (Pt is hypoxic upon ICU admission. ) Respiratory: Accessory Muscle Use, Crackles, Decreased Breath Sounds Cardiovascular: Normal Peripheral Pulses Capillary Refill: Less Than 3 Seconds Gastrointestinal: non tender, soft Extremity: Normal Range of Motion, Non Tender Neurologic/Psychiatric: Alert, Oriented x3 Skin: Normal Color, Warm/Dry Lymphatic: No Adenopathy Results Lab Laboratory Tests 09/18/20 20:00 09/19/20 19:50 09/20/20 05:57 Assessment/Plan Assessment/Plan S/p emergent secondary to distress during labor Acute respiratory distress with hypoxia -Check CTA of chest -CXR- reviewed and shows extensive bilateral infiltrates. -Rapid COVID is negative. PCR COVID is pending -Change to Vapotherm -Check ABG -Check Echocardiogram Bilateral PNA -PCT is 15.4 -Change Abx to Zosyn and Azithromycin -D/C Amp and Gent -Discussed with clinical pharmacist and EICU. -Justice cultures pending Metabolic lactic acidosis -Hold off on Lasix -Continue D5LR at 125. -Monitor Fever r/o sepsis -Justice cultures pending -check PCT JERMAIN WALSH DO Sep 20, 2020 07:06
[2020-09-20 07:07] LABS: CHLORIDE 110 MMOL/L (98-107); POTASSIUM 4.3 MMOL/L (3.6-5.0); SODIUM 135 MMOL/L (135-145)
[2020-09-20 07:08] LABS: CALCIUM 7.7 MG/DL (8.5-10.1)
[2020-09-20 07:09] LABS: GLUCOSE 85 MG/DL (70-105); TOTAL PROTEIN 5.2 GM/DL (6.4-8.2)
[2020-09-20 07:10] LABS: CARBON DIOXIDE 15 MMOL/L (21-32)
--- NOTE | 2020-09-20 07:10 | NUR ---
Pt arrived to ICU room 12 at this time. O2 saturation 75% on 6L NC. Pt transferred over to [facility]. Dr. Dodge notified and new orders received to place pt on vapotherm. Rt notified. Will continue to closely monitor pt.
[2020-09-20 07:11] LABS: BILIRUBIN,TOTAL 0.4 MG/DL (0.1-1.0)
[2020-09-20 07:12] LABS: ALKALINE PHOSPHATASE 102 U/L (40-136); PHOSPHORUS 3.6 MG/DL (2.3-4.7)
[2020-09-20 07:13] LABS: CREATININE SERUM 0.95 MG/DL (0.60-1.30); GFR ESTIMATED > 60
[2020-09-20 07:14] LABS: BUN/CREATININE RATIO 11
[2020-09-20 07:15] LABS: MAGNESIUM 2.7 MG/DL (1.6-2.4)
[2020-09-20 07:16] LABS: ALANINE AMINOTRANSFERASE 10 U/L (0-55)
--- NOTE | 2020-09-20 07:17 | NUR ---
o2 SAT down to 79% o2 increased to 8L per nc. encouraged patient to take some slow deep breaths. 0719: o2 Increased. to 10L per nc. o2 sat remains between 80-83%. Charge nurse notified of pt's declining status. pt moved to ICU via bed with portable oxygen. STEEP TENDER in room awaiting patient. Pt placed on monitors. airborne and air delivery specialist resumed care. Report given.
--- NOTE | 2020-09-20 07:19 | Postpartum Progress Note ---
Note Note Day # 1 Subjective: Patient is short of breath on an 6 L NC. Ambulating to restroom with assist, and drop in her O2 sat. Tolerating a regular diet without nausea or vomiting. Normal lochia. Pain is well controlled with oral pain medications. Patient has been afebrile overnight, but still struggling with breathing. Objective: Physical Exam: General - Alert and oriented, no apparent distress Abdomen - Soft, appropriately tender to palpation, non-distended, fundus firm at umbilicus Extremities - no edema, negative Homero's bilaterally Incision- c/d/i w/ mayra in place Assessment: POD 1 emergency PLTCS Unexplained fever of 105 intrapartum, with resolution overnight Negative rapid COVID swab, PCR pending Flu swab negative Respiratory assistance needed with NC at 6 L Plan: Routine care. Encourage ambulation w/ assist CXR and Pulm consult made to Dr. Dodge Will follow his rec, transfer made to ICU due to resp status and COVID false neg rapid concerns. Vitals - Labs Vital Signs - I&O Vital Signs Date Time Temp Pulse Resp B/P (MAP) Pulse Ox O2 Delivery O2 Flow Rate FiO2 09/20/20 06:10 36.6 81 24 104/52 (69) 93 Nasal Cannula 6.00 09/20/20 05:00 94 26 111/62 (78) 93 Nasal Cannula 4.00 09/20/20 04:25 85 Nasal Cannula 5.00 09/20/20 04:00 94 20 104/49 (67) 89 Nasal Cannula 5.00 09/20/20 03:57 88 20 90 Nasal Cannula 5.00 09/20/20 03:43 36.4 93 20 97/49 (65) 91 Nasal Cannula 3.00 09/20/20 02:40 36.5 97 20 100/51 (67) 91 Nasal Cannula 3.00 09/20/20 01:25 93 Nasal Cannula 3.00 09/20/20 01:00 95 20 116/54 (74) 92 Nasal Cannula 4.00 09/20/20 00:15 92 Nasal Cannula 4.00 09/20/20 00:00 36.8 97 20 115/54 (74) 94 Nasal Cannula 6.00 09/19/20 23:00 94 20 126/72 (90) 90 Nasal Cannula 6.00 11/5/20 22:45 93 20 113/64 (80) 90 Nasal Cannula 6.00 09/19/20 22:30 37.2 95 92 09/19/20 22:30 109 20 109/54 (72) 88 Nasal Cannula 6.00 09/19/20 22:30 92 Nasal Cannula 6.00 09/19/20 22:00 90 6.00 09/19/20 22:00 37.2 95 20 125/74 (91) 89 Nasal Cannula 6.00 09/19/20 21:40 37.3 24 124/58 (80) 92 Nasal Cannula 6 09/19/20 21:40 Nasal Cannula 6 09/19/20 21:30 37.8 24 138/75 (96) 91 Nasal Cannula 6 09/19/20 21:30 Nasal Cannula 6 09/19/20 21:20 28 129/70 (89) 92 Nasal Cannula 4 09/19/20 21:20 Nasal Cannula 4 09/19/20 21:10 Nasal Cannula 4 09/19/20 21:10 37.4 23 132/70 (90) 94 Nasal Cannula 4 09/19/20 21:00 37.6 26 137/74 (95) 91 Nasal Cannula 6 09/19/20 21:00 Nasal Cannula 6 09/19/20 20:50 Nasal Cannula 6 09/19/20 20:50 30 133/72 (92) 92 Nasal Cannula 6 09/19/20 20:41 Nasal Cannula 8 09/19/20 20:41 37.7 28 136/74 (94) 91 Nasal Cannula 8 09/19/20 19:57 106 20 97/47 (64) 94 Room Air 09/19/20 19:56 106 22 97/47 (64) 09/19/20 19:52 115 20 131/67 (88) 98 Room Air 09/19/20 19:45 114 20 141/77 (98) 100 Room Air 09/19/20 19:45 114 20 141/77 (98) 09/19/20 19:37 40.1 113 20 196/89 (124) 100 Room Air 09/19/20 19:32 110 20 178/82 (114) 100 Room Air 09/19/20 19:27 106 182/90 (120) 100 Room Air 09/19/20 19:18 113 138/93 (108) 99 Room Air 09/19/20 19:12 111 170/83 (112) 99 Room Air 09/19/20 19:00 39.7 122 18 195/81 (119) 100 Room Air 09/19/20 18:58 122 214/96 (135) 100 Room Air 09/19/20 18:54 131 212/93 (132) 100 Room Air 09/19/20 18:45 115 18 168/91 (116) 100 Room Air 09/19/20 18:30 114 177/90 (119) 100 Room Air 09/19/20 18:15 37.7 111 18 170/86 (114) 100 Room Air 09/19/20 18:00 119 133/88 (103) 100 Room Air 09/19/20 17:45 37.6 113 16 151/81 (104) 100 Room Air 09/19/20 17:30 103 149/80 (103) 100 Room Air 09/19/20 17:15 112 148/69 (95) 100 Room Air 09/19/20 17:05 109 142/68 (92) 100 Room Air 09/19/20 17:03 104 166/74 (104) 100 Room Air 09/19/20 17:00 107 115/66 (82) 100 Room Air 09/19/20 16:50 111 126/62 (83) Room Air 09/19/20 16:47 112 152/69 (96) 98 Room Air 09/19/20 16:45 107 113/53 (73) 100 Room Air 09/19/20 16:30 37.7 117 16 110/56 (74) 100 Room Air 09/19/20 16:25 113 99/53 (68) 100 Room Air 09/19/20 16:20 104 111/59 (76) 100 Room Air 09/19/20 16:15 121 132/103 (113) 99 Room Air 09/19/20 16:12 88 68/32 (44) 100 Room Air 09/19/20 16:10 80 79/37 (51) 100 Room Air 09/19/20 16:00 115 133/86 (102) 100 Room Air 09/19/20 15:45 126 22 100 Room Air 09/19/20 15:30 Room Air 09/19/20 15:15 Room Air 09/19/20 15:00 96 123/72 (89) Room Air 09/19/20 14:45 88 128/61 (83) Room Air 09/19/20 14:30 Room Air 09/19/20 14:15 85 136/63 (87) Room Air 09/19/20 14:00 86 137/63 (87) Room Air 09/19/20 13:45 90 Room Air 09/19/20 13:30 90 121/57 (78) Room Air 09/19/20 13:15 37.0 Room Air 09/19/20 13:00 90 133/58 (83) Room Air 09/19/20 12:45 92 135/81 (99) Room Air 09/19/20 12:30 96 137/85 (102) 100 Room Air 09/19/20 12:15 87 122/62 (82) Room Air 09/19/20 12:00 36.8 82 132/67 (88) Room Air 09/19/20 11:45 83 132/70 (90) Room Air 09/19/20 11:30 81 124/58 (80) Room Air 09/19/20 11:15 85 130/77 (94) Room Air 09/19/20 11:00 81 16 132/77 (95) Room Air 09/19/20 10:45 88 109/56 (73) Room Air 09/19/20 10:30 79 112/55 (74) Room Air 09/19/20 10:15 80 124/58 (80) Room Air 09/19/20 10:10 79 128/58 (81) 100 Non Rebreather 09/19/20 10:05 83 128/60 (82) Room Air 09/19/20 10:00 36.5 90 114/62 (79) Room Air 09/19/20 09:55 83 102/56 (71) 98 Room Air 09/19/20 09:50 83 114/57 (76) Room Air 09/19/20 09:45 84 112/57 (75) Room Air 09/19/20 09:42 95 109/56 (73) Room Air 09/19/20 09:39 82 107/53 (71) 97 Room Air 09/19/20 09:36 80 118/56 (76) 100 Room Air 09/19/20 09:33 96 111/60 (77) 100 Room Air 09/19/20 09:30 98 112/57 (75) 99 Room Air 09/19/20 09:27 90 120/64 (82) 99 Room Air 09/19/20 09:24 92 118/63 (81) 99 Room Air 09/19/20 09:15 92 135/67 (89) Room Air 09/19/20 09:00 91 145/84 (104) Room Air 09/19/20 07:30 36.8 80 18 136/75 (95) 99 Room Air I & O 09/20/20 07:00 Intake Total 3559.6 ml Output Total 850 ml Balance 2709.6 ml Labs Laboratory Tests 09/19/20 19:12: Coronavirus 2019 (LYDIA) Negative 09/19/20 19:50: White Blood Count 10.8, Red Blood Count 3.42L, Hemoglobin 10.2L, Hematocrit 30L, Mean Corpuscular Volume 87, Mean Corpuscular Hemoglobin 30, Mean Corpuscular Hemoglobin Concent 34, Red Cell Distribution Width 13.4, Platelet Count 141, Mean Platelet Volume 10.6, Immature Granulocyte % (Auto) 0, Neutrophils (%) (Auto) 70, Lymphocytes (%) (Auto) 23, Monocytes (%) (Auto) 6, Eosinophils (%) (Auto) 1, Basophils (%) (Auto) 0, Neutrophils # (Auto) 7.6, Lymphocytes # (Auto) 2.5, Monocytes # (Auto) 0.6, Eosinophils # (Auto) 0.1, Basophils # (Auto) 0.0, Immature Granulocyte # (Auto) 0.0, Sodium Level 134L, Potassium Level 3.4L, Chloride Level 108H, Carbon Dioxide Level 16L, Anion Gap 10, Blood Urea Nitrogen 10, Creatinine 0.94, Estimat Glomerular Filtration Rate > 60, BUN/Creatinine Ratio 11, Glucose Level 81, Uric Acid 5.8, Calcium Level 8.0L, Corrected Calcium 8.9, Magnesium Level 2.3, Total Bilirubin 0.3, Aspartate Amino Transf (AST/SGOT) 21, Alanine Aminotransferase (ALT/SGPT) 7, Alkaline Phosphatase 132, Lactate Dehydrogenase 183, Total Protein 5.5L, Albumin 2.9L 09/19/20 21:40: Lactic Acid Level 1.90 09/20/20 05:57: White Blood Count 10.6, Red Blood Count 3.16L, Hemoglobin 9.5L, Hematocrit 28L, Mean Corpuscular Volume 89, Mean Corpuscular Hemoglobin 30, Mean Corpuscular Hemoglobin Concent 34, Red Cell Distribution Width 13.4, Platelet Count 140, Mean Platelet Volume 11.0, Immature Granulocyte % (Auto) 0, Neutrophils (%) (Auto) 77H, Lymphocytes (%) (Auto) 17, Monocytes (%) (Auto) 5, Eosinophils (%) (Auto) 1, Basophils (%) (Auto) 1, Neutrophils # (Auto) 8.1H, Lymphocytes # (Auto) 1.8, Monocytes # (Auto) 0.5, Eosinophils # (Auto) 0.1, Basophils # (Auto) 0.1, Immature Granulocyte # (Auto) 0.0, Sodium Level 135, Potassium Level 4.3, Chloride Level 110H, Carbon Dioxide Level 15L, Anion Gap 10, Creatinine 0.95, Estimat Glomerular Filtration Rate > 60, Glucose Level 85, Calcium Level 7.7L, Corrected Calcium 9.1, Total Bilirubin 0.4, Alkaline Phosphatase 102, Total Protein 5.2L, Albumin 2.3L, Phosphorus Level 3.6, Random Gentamicin Level 2.8 Microbiology 09/19/20 Influenza Types A,B Antigen (LEYLA) - Final, [facility] Is[facility] MADDEN Sep 20, 2020 07:19
--- NOTE | 2020-09-20 07:44 | Anesthesia-Regional Post-Op ---
Regional Patient Condition Mental Status: Alert, Oriented x3 Circulation: Same as Pre-Op Headache: Absent Sensation: Full Recovery Motor Block: Absent Post Op Complications Complications Pt transferred to ICU for difficulty breathing, will f/u Follow Up Care/Instructions Patient Instructions None needed. Anesthesia/Patient Condition D/C home per [facility] Criteria: IVANNA Avila CRNA Sep 20, 2020 07:44
--- NOTE | 2020-09-20 07:50 | Diagnostic Imaging Report ---
Clinical indication: Patient with decreased oxygen saturations and requiring oxygen. Patient is post . Patient is in COVID precautions. Exam: Portable chest x-ray upright view. Comparisons: None. Findings: There is moderate amount of bilateral patchy lung infiltrates (right side more than the left) . There is no pleural effusion or pneumothorax seen. Pulmonary vasculature and cardiac silhouette is partially obscured, but appears within normal limits for portable projection. Bones show no significant abnormality. Impression: 1: There are diffuse bilateral lung infiltrates. These findings may be related to pneumonia or aspiration pneumonitis. Noncardiogenic pulmonary edema should also be excluded. Dictated by: Dictated on workstation # [id number]
[2020-09-20] MEDS ORDERED: FUROSEMIDE 40 MG/4 ML INJ (LASIX) IVP NR (08:00)
[2020-09-20] MEDS: RT-ALBUTEROL INHALER HFA (VENTOLIN HFA) 18 GM IH SCH ×5 (08:04→23:50)
[2020-09-20] MEDS ORDERED: PIPERACILLIN/TAZOBACTAM 4.5 GM in NS (IVPB) 100 ML IV NR (08:22)
--- NOTE | 2020-09-20 08:39 | Consultation - Hospitalist ---
HPI History of Present Illness: HPI/Chief Complaint Pt is a 20yoCF who was admitted to L&D for induction at 40.3wga due to being post dates. Induction was complicated by maternal fever and subsequent loss of variability in FHT and was taken for emergent . Overnight she developed cough and hypoxia as well and was transferred to the ICU. She reports she is feeling better now that she has a nonrebreather on. Her cough started abruptly this morning and her tmax was 40.1 last night. Source: patient Date Seen 09/20/20 Attending Physician Oriana Ferreira MD PCP No,Local Physician Referring Physician Date of Admission Sep 18, 2020 at 19:24 Home Medications & Allergies Home Medications Reviewed patient Home Medication Reconciliation performed by pharmacy medication reconciliations aviation safety equipment technician and/or nursing. Patients Allergies have been reviewed. Allergies Allergies Coded Allergies No Known Drug Allergies (Cdshsgnigu08/4/20) Past Ytiorre-Rbrrfx-Bcgwou Hx Past Med/Social Hx: Reviewed Nursing Past Med/Soc Hx Patient Social History Alcohol Use: Denies Use Recreational Drug Use: No Smoking Status: Never a Smoker Physical Abuse Screen: No Sexual Abuse: No Recent Foreign Travel: No Contact w/other who traveled: No Recent Infectious Disease Expo: No Immunizations Up To Date Date of Influenza Vaccine: Jul 16, 2020 Seasonal Allergies Seasonal Allergies: No Past Medical History Currently Using CPAP: No Currently Using BIPAP: No Expected Date of Delivery: Sep 16, 2020 Psychosocial: Depression History of Blood Disorders: No Adverse Reaction to Blood [place]: No Family History Reviewed Nursing Family Hx Diabetes mellitus 19 FATHER 19 MOTHER No Pertinent Family Hx Review of Systems Constitutional: chills, fever Respiratory: cough, short of breath Gastrointestinal: see HPI Genitourinary: no symptoms reported Musculoskeletal: no symptoms reported Skin: no symptoms reported Psychiatric/Neurological: No Symptoms Reported Physical Exam Physical Exam Vital Signs Vital Signs - First Documented 09/18/20 09/18/20 09/20/20 20:00 20:39 09:00 Temp 36.5 Pulse 102 Resp 18 B/P (MAP) 137/71 (93) Pulse Ox 98 O2 Delivery Room Air FiO2 60 Capillary Refill : Less Than 3 Seconds Height, Weight, BMI Height: '" Weight: lbs. oz. kg; 39.60 BMI Method: General Appearance: No Apparent Distress, WD/WN HEENT: PERRL/EOMI, Moist Mucous Membranes Neck: Normal Inspection, Supple Respiratory: No Accessory Muscle Use, Crackles, Decreased Breath Sounds Cardiovascular: Regular Rate, Rhythm, Normal Peripheral Pulses Gastrointestinal: Normal Bowel Sounds, Non Tender, Soft Extremity: Normal Capillary Refill, Normal Range of Motion, Non Tender, No Calf Tenderness, No Pedal Edema Neurologic/Psychiatric: Alert, Oriented x3, Normal Mood/Affect Skin: Other (incision site clean and dry, mayra in place) Results Results/Procedures Labs Laboratory Tests 09/18/20 20:00 09/19/20 19:50 09/20/20 05:57 Patient resulted labs reviewed. Imaging: Reviewed Imaging Report Imaging [facility]. [place], [place] NAME: NANCY DIALLO [facility] REC#: [id number] PT STATUS: ADM IN : 2000 PHYSICIAN: GRZEGORZ COVARRUBIAS MD ADMIT DATE: 09/18/20/LDRP Draft Date of Exam:09/20/20 CHEST 1 VIEW, AP/PA ONLY Clinical indication: Patient with decreased oxygen saturations and requiring oxygen. Patient is post . Patient is in COVID precautions. Exam: Portable chest x-ray upright view. Comparisons: None. Findings: There is moderate amount of bilateral patchy lung infiltrates (right side more than the left) . There is no pleural effusion or pneumothorax seen. Pulmonary vasculature and cardiac silhouette is partially obscured, but appears within normal limits for portable projection. Bones show no significant abnormality. Impression: 1: There are diffuse bilateral lung infiltrates. These findings may be related to pneumonia or aspiration pneumonitis. Noncardiogenic pulmonary edema should also be excluded. Dictated on workstation # [id number] Dict: 09/20/20 0746 Trans: 09/20/20 0750 CVB [id number] Interpreted by: HADLEY LARSEN MD Electronically signed by: Assessment/Plan Assessment and Plan Assess & Plan/Chief Complaint Severe Sepsis acute hypoxic Respiratory failure Fever, tachycardia with lactic acidosis Etiology unclear at this- rule out COVID CTA chest pending Rapid COVID is negative, PCR pending UA is pending Cultures pending Echo ordered to evaluate for peripartum cardiomyopathy PDD #1 s/p emergent c/s section Management per OB Patient would like to try to consult Encouraged getting pt breastpump DVT ppx: Lovenox Clinical Quality Measures DVT/VTE Risk/Contraindication: Risk Factor Score Per Nursin RFS Level Per Nursing on Admit: 1=Low/No VTE PPX VALENTINO KELLER MD Sep 20, 2020 08:39
[2020-09-20] MEDS: OXYTOCIN PRE-MIX DRIP 500 ML IV SCH (08:50)
[2020-09-20] MEDS: IBUPROFEN 600 MG (MOTRIN) TAB PO SCH ×3 (08:52→18:12)
[2020-09-20] MEDS ORDERED: AZITHROMYCIN INJECTION 500 MG in NS (IVPB) 250 ML IV NR (09:00)
[2020-09-20] MEDS ORDERED: NS 100 ML (IVPB) BAG IV ONE (09:45)
[2020-09-20] MEDS ORDERED: HOLD METFORMIN - RECEIVED CONTRAST 20 ML VIAL IV SCH (09:45)
[2020-09-20] MEDS ORDERED: IOHEXOL 350 MG/ML 100 ML (OMNIPAQUE 350) VIAL IV ONE (09:45)
[2020-09-20] MEDS ORDERED: CATHETER FLUSH 10 ML SYR IV PRN (09:45)
[2020-09-20 09:59] LABS: ABG BASE EXCESS -5.8 MMOL/L (-2.5-2.5); ABG OXYGEN SATURATION 98 % (94-100); ABG PCO2 30 MMHG (35-45); ABG PO2 92 MMHG (79-93); ABG TCO2 19.4 MMOL/L (21.0-31.0)
[2020-09-20 10:00] LABS: ALLENS TEST YES-POS; INSPIRED O2 60%; VENTILATOR NO
[2020-09-20] MEDS: DOCUSATE SODIUM 100 MG (COLACE) CAP PO SCH ×2 (10:07→19:42)
[2020-09-20] MEDS: ENOXAPARIN 40 MG/0.4 ML (LOVENOX) SYR SC SCH (10:07)
[2020-09-20 10:58] LABS: BILIRUBIN,URINE NEGATIVE (NEGATIVE); CLARITY,URINE CLOUDY; COLOR,URINE RED; GLUCOSE, URINE (UA) NEGATIVE (NEGATIVE); KETONES,URINE NEGATIVE (NEGATIVE); LEUKOCYTE ESTERASE ,URINE 2+ (NEGATIVE); NITRITE,URINE NEGATIVE (NEGATIVE); PH,URINE 5.5 (5-9); PROTEIN,URINE 1+ (NEGATIVE)
--- NOTE | 2020-09-20 10:58 | Diagnostic Imaging Report ---
PROCEDURE: CT angiography of the chest with contrast. TECHNIQUE: Multiple contiguous axial images were obtained through the chest after uneventful bolus administration of intravenous contrast. 3D reconstructed CTA MIP acquisitions were also performed. Auto Exposure Controls were utilized during the CT exam to meet ALARA standards for radiation dose reduction. INDICATION: COVID, shortness of breath. FINDINGS: There are severe five-lobe infiltrates with multiple areas of confluent alveolar consolidation and bronchograms as well as widely distributed groundglass infiltrates. This patient has small nonloculated bilateral pleural effusions layering to a depth of 1.4 cm. No pericardial collection. The aorta is patent and nonaneurysmal. There are no identifiable intraluminal pulmonary arterial filling defects, however at the subsegmental level and beyond, pulmonary arterial opacification is limited on a technical basis. There is no pneumothorax. The visualized upper abdomen appeared nonacute. IMPRESSION: No identifiable PE, severe five-lobe infiltrates with alveolar consolidation as well as groundglass opacities, and small nonloculated pleural effusions. Dictated by: Dictated on workstation # [id number]
[2020-09-20 11:17] LABS: BACTERIA,URINE NEGATIVE /HPF; RBC,URINE TNTC /HPF; SQUAMOUS EPITHELIAL CELL,UR 0-2 /HPF
[2020-09-20] MEDS: ONDANSETRON 4 MG/2 ML (SDV) Z0FRAN IVP PRN (13:27)
[2020-09-20] MEDS: PIPERACILLIN/TAZOBACTAM (BULK) 4.5 GM in NS (IVPB) 100 ML IV SCH ×2 (13:28→23:42)
--- NOTE | 2020-09-20 15:38 | NUR ---
CM/SS: Visited with pt ( dressed in full PPE with N95 as she is a person under investigation for COVID) as per consult related to mom being ill and being in the ICU Plan: Undetermined at this time. Pt is from home and lives in [place], [place] with her and Summary: Pt reports she has been feeling more short of breath today and having some issues with nausea. Pt reports she has been able to see the baby with pictures from her phone and from father who is with baby on OB floor. She reports she is very tired. She reports being healthy for the most part prior to having the baby. She does not believe she has been around anyone with the COVID virus. She is encouraged that we will do our best to get her to where she can see baby, when medically able. Mood is ok. She does report having WIC and this worker talks with her as to other services in the community to assist her and baby and can give her more information when she is released. She is ok with that. This worker will follow up.
[2020-09-20] MEDS ORDERED: RT-ALBUTEROL SULF 2.5 MG/3 ML PRE-MIX VIAL INH PRN (16:00)
[2020-09-20] MEDS ORDERED: DexMEDEtomidine PRE MIX 100 ML IV ONE (19:28)
--- NOTE | 2020-09-20 19:30 | NUR ---
DISCUSSED IMPORTANCE OF TRYING BIPAP THERAPY. INFORMED HER OF CURRENT SITUATION, WHERE DECREASE IN O2 LEVELS WITH INCREASE OF BREATHING WILL EVENTUALLY NOT BE COMPATIBLE WITH LIFE. AGREED TO BIPAP THERAPY. DISCUSSED FURTHER INTERVENTIONS WITH THE PATIENT, INCLUDING THE POSSIBILITY OF NEEDING A BREATHING TUBE, IF BIPAP THERAPY FAILED. INFORMED THE PATIENT THAT WE WOULD BE ABLE TO GIVE HERE MEDICATION TO HELP HER RELAX AND TOLERATE THE THERAPIES DISCUSSED. PATIENT VERBALIZED UNDERSTANDING IN USING THE BIPAP AND THE POSSIBILITY OF INTUBATION.
[2020-09-20] MEDS ORDERED: DexMEDEtomidine PRE MIX 100 ML IV SCH (19:45)
[2020-09-20] MEDS ORDERED: NS IV 1000 ML 1,000 ML ONE ×2 (20:37→23:49)
[2020-09-20 20:40] LABS: ABG BASE EXCESS -5.1 MMOL/L (-2.5-2.5); ABG OXYGEN SATURATION 96 % (94-100); ABG PCO2 35 MMHG (35-45); ABG PH 7.36 (7.37-7.43); ABG PO2 89 MMHG (79-93); ABG TCO2 20.5 MMOL/L (21.0-31.0)
[2020-09-20 20:41] LABS: ALLENS TEST POSITIVE; INSPIRED O2 100; PATIENT TEMP 36.4; VENTILATOR NO
[2020-09-20] MEDS ORDERED: NS IV 1000 ML 1,000 ML IV SCH (20:45)
[2020-09-20] MEDS ORDERED: NOREPINEPHRINE 4 MG/250 ML 250 ML IV ONE (21:12)
[2020-09-20] MEDS ORDERED: PROPOFOL DRIP (ICU) 100 ML IV ONE (21:13)
[2020-09-20] MEDS: NOREPINEPHRINE 4 MG/250 ML 250 ML IV SCH (21:17)
[2020-09-20] MEDS ORDERED: VANCOMYCIN INJECTION 1,000 MG in NS (IVPB) 250 ML IV SCH (21:30)
[2020-09-20] MEDS ORDERED: DEXMEDETOMIDINE PRE MIX IV SCH (21:30)
[2020-09-20] MEDS ORDERED: fentaNYL DRIP PRE-MIX 250 ML IV SCH (21:30)
[2020-09-20] MEDS: PROPOFOL DRIP (ICU) 100 ML IV SCH (22:00)
[2020-09-20 22:43] LABS: HEMOGLOBIN 9.1 g/dL (11.5-16.0); MEAN PLATELET VOLUME 10.8 fL (9.0-12.2); WHITE BLOOD COUNT 10.7 10^3/uL (4.3-11.0)
[2020-09-20] MEDS ORDERED: FUROSEMIDE 40 MG/4 ML INJ (LASIX) ONE (22:46)
[2020-09-20 22:51] LABS: INR 1.3 (0.8-1.4); PROTHROMBIN TIME PATIENT 16.4 SEC (12.2-14.7)
[2020-09-20 22:52] LABS: ALBUMIN 2.2 GM/DL (3.2-4.5); CHLORIDE 111 MMOL/L (98-107); POTASSIUM 3.6 MMOL/L (3.6-5.0); SODIUM 137 MMOL/L (135-145)
[2020-09-20 22:53] LABS: CALCIUM 7.2 MG/DL (8.5-10.1)
[2020-09-20 22:54] LABS: GLUCOSE 92 MG/DL (70-105); TOTAL PROTEIN 4.5 GM/DL (6.4-8.2)
[2020-09-20 22:55] LABS: CARBON DIOXIDE 17 MMOL/L (21-32)
[2020-09-20 22:56] LABS: BILIRUBIN,TOTAL 0.8 MG/DL (0.1-1.0)
[2020-09-20 22:58] LABS: ALKALINE PHOSPHATASE 104 U/L (40-136); CREATININE SERUM 0.83 MG/DL (0.60-1.30); GFR ESTIMATED > 60
[2020-09-20 22:59] LABS: BUN/CREATININE RATIO 12
[2020-09-20] MEDS ORDERED: FUROSEMIDE 40 MG/4 ML INJ (LASIX) IVP ONE (23:00)
[2020-09-20 23:01] LABS: ALANINE AMINOTRANSFERASE 7 U/L (0-55)
[2020-09-20] MEDS ORDERED: SODIUM BICARB 8.4% 50 MEQ/50 ML VIAL IV ONE (23:15)
[2020-09-20] MEDS ORDERED: CISATRACURIUM 2MG/ML (NIMBEX) 10ML VIAL IV ONE (23:15)
--- NOTE | 2020-09-20 23:16 | Progress Note - Hospitalist ---
Subjective HPI/CC On Admission Date Seen by Provider: Sep 20, 2020 Time Seen by Provider: 23:11 Pt is a 20yoCF who was admitted to L&D for induction at 40.3wga due to being post dates. Induction was complicated by maternal fever and subsequent loss of variability in FHT and was taken for emergent . Overnight she developed cough and hypoxia as well and was transferred to the ICU. She reports she is feeling better now that she has a nonrebreather on. Her cough started abruptly this morning and her tmax was 40.1 last night. Subjective/Events-last exam Called to bedside regarding respiratory distress. Pt had just been intubated by Dr Bustamante and still having difficulty oxygenating patient without bagging. I increased PEEP to 14 with FiO2 at 100%. Sats remained ~91 with bagging. Called eICU who gave further vent adjustments. Focused Exam Lactate Level 09/20/20 10:00: Lactic Acid Level 1.77 09/20/20 22:28: Lactic Acid Level 2.19*H 09/21/20 04:24: Lactic Acid Level 2.16*H Lactic Acid Level Objective Exam Vital Signs Vital Signs Date Time Temp Pulse Resp B/P (MAP) Pulse Ox O2 Delivery O2 Flow Rate FiO2 09/21/20 14:00 86 26 136/86 (103) 96 Mechanical Ventilator 100.00 09/21/20 11:45 36.8 09/21/20 10:18 100 Capillary Refill : Less Than 3 Seconds General Appearance: Other (sedated, on vent, being bagged by RT) Respiratory: Rhonci, Other (on vent, bilateral breath sounds) Cardiovascular: Regular Rate, Rhythm, No Murmur Gastrointestinal: Normal Bowel Sounds, Non Tender, Soft Genital/Rectal: Other (ayala in place) Extremity: Normal Capillary Refill, No Calf Tenderness, No Pedal Edema Results/Procedures Lab Laboratory Tests 09/20/20 22:28 09/21/20 03:28 Patient resulted labs reviewed. Imaging: Reviewed Imaging Report Assessment/Plan Assessment and Plan Assess & Plan/Chief Complaint Severe Sepsis acute hypoxic Respiratory failure Clinically this appears to be COVID, will remain in isolation COVID PCR pending, ab pending Will repeat PCR if negative given high clinical suspicion Consider RVP as well Stat labs pending State echo done and prelim report show EF of 60% I called and spoke with family (mom Aminta and aunt Casandra), informed them of status change They had previously requested transfer to [facility] but all [facility] are on diversion, we attempted transfer to another facility but all tertiary centers in [facility], and [facility] are on diversion as well I, along with Adalgisa HUNTER, updated family to this as well and they are comfortable with her staying here and reassessing in the morning, all questions answered Anesthesia consulted for art line POD #1 s/p emergent c/s section Management per OB consult Discussed with RN about placing breastpump on patient if able given her desire to breastfeed Protein creatinine ratio elevated, discussed with Dr Matute, no indication for magnesium at this time DVT ppx: Lovenox Critical Care CC TIME : Critical Care Start Date: Sep 20, 2020 Critical Care Start Time: 10:25 Stop date: Sep 20, 2020 Stop Time: 23:43 Diagnosis/Problems Diagnosis/Problems (1) Acute respiratory failure Qualifiers: Respiratory failure complication: hypoxia Qualified Codes: J96.01 - Acute respiratory failure with hypoxia (2) Person under investigation for COVID-19 Status: Acute (3) Sepsis Status: Acute Qualifiers: Sepsis type: sepsis due to unspecified organism Sepsis acute organ dysfunction status: with acute organ dysfunction Severe sepsis acute organ dysfunction type: acute respiratory failure Acute respiratory failure type: with hypoxia Severe sepsis shock status: without septic shock Qualified C odes: A41.9 - Sepsis, unspecified organism; R65.20 - Severe sepsis without septic shock; J96.01 - Acute respiratory failure with hypoxia Clinical Quality Measures DVT/VTE Risk/Contraindication: Risk Factor Score Per Nursin RFS Level Per Nursing on Admit: 1=Low/No VTE PPX VALENTINO KELLER MD Sep 20, 2020 23:16
[2020-09-20] MEDS ORDERED: VANCOMYCIN 1000 MG/VIAL ONE (23:29)
[2020-09-20] MEDS ORDERED: NS (IVPB) 250 ML ONE (23:29)
--- NOTE | 2020-09-20 23:44 | Procedure/Intervention Note ---
Procedures/Interventions Lumen: triple Central Line Procedure: betadine prep (chlorhexidine prep) Position: internal jugular (R) Anesthesia: Lidocaine Volume Anesthetic (ccs): 3 Complications: none Post Position: sutured, good blood return, position confirmed w/ CXR Risks, benefits and alternatives were discussed with the patient and he consented to the procedure. He was positioned in the usual format and using the usual sterile garment and drapes the patient was dressed out. The skin was thoroughly cleaned with the supplied chlorhexidine prep. After the prep and dried a sterile drape was placed. The 20 cm 7 [place] triple-lumen catheter was flushed with sterile saline. We used ultrasound guidance to pass the introducer needle into the right internal jugular without difficulty. A guidewire was placed easily without difficulty. No ectopy was seen on the monitor. The supplied 11 blade scalpel was used to make a 2 mm incision at the inferior portion of the introducer needle. The introducer needle was replaced with the dilator. The dilator was taken out and the patient had the central lumen of the triple lumen catheter threaded over the guidewire and placed at 14 cm. The guidewire was removed and the triple-lumen catheter was stitched in place using the supplied braided stitch at 2 different points. The catheter withdrew blood and flushed easily. A sterile dressing was placed over the catheter. The patient tolerated the procedure well. A chest x-ray was obtained that demonstrated no pneumothorax and a new interval central catheter over the shadow of the right internal jugular down the superior vena cava and terminating just proximal to the right atria. Reason for Intubation: respiratory failure Date of ETT Placement: Sep 20, 2020 Time of ETT Placement: 21:30 Intubation Method: orotracheal Tube Size: 7.5 Medications: Etomidate (40 mg), Rocuronium (50 mg) Positive End Tide CO2: Yes Breath Sounds after Intubation: right greater than left Post Intubation Xray: Yes initial chest x-ray demonstrated a right mainstem intubation The patient had profound hypoxia on attempting to [id number] ventilate her. A nasopharyngeal airway was used as well as aggressive positioning and a towel roll under her shoulders. Her oxygen sats got down to 45% and only gotten back up to 60 we made a single attempt using the video laryngoscope and were able to easily pass the ET tube down to 24 at the teeth. We were easily able to visualize the vocal cords. She was easy to ventilate had fogging of the tube on expiration and change the color of the capnography paper. She had bilateral breath sounds although the right was a little more prominent than the left. She had no air sounds over the epigastric region. We're able to get her oxygen sats back up to 90-93%. LILLY SNIDER Sep 20, 2020 23:44
[2020-09-20] MEDS: VANCOMYCIN 1 GM/NS 250 ML IVPB IV SCH ×2 (23:56)
[2020-09-21] VITALS (31 sets, daily range): BP systolic 103–148; BP diastolic 45–96
[2020-09-21] MEDS: POTASSIUM CL 10MEQ/50ML IVPB 50 ML IV SCH ×3 (00:05→00:47)
--- NOTE | 2020-09-21 00:10 | Anesthesia-Procedure Note ---
Procedures/Interventions Procedure Start/Stop/Diagnosis Date of Procedure: Sep 21, 2020 Start Time: 11:35 Stop Time: 12:05 Arterial Line Arterial Line Catheter: 20G Type: Radial Location: Left Procedure: prepped, draped in sterile fashion, good wave-form was obtained, patient tolerated procedure well, no immediate complications, post procedure dressing applied FLOR HORTON CRNA Sep 21, 2020 00:10
[2020-09-21] MEDS: CISATRACURIUM INJECTION 100 MG in NS (IVPB) 200 ML IV SCH ×5 (00:19→23:20)
[2020-09-21] MEDS: IBUPROFEN 600 MG (MOTRIN) TAB PO SCH ×4 (00:20→18:03)
[2020-09-21] MEDS ORDERED: VANCOMYCIN 1000 MG/VIAL ONE (00:30)
[2020-09-21] MEDS ORDERED: NS (IVPB) 250 ML ONE ×2 (00:30→17:00)
[2020-09-21] MEDS: VANCOMYCIN 1 GM/NS 250 ML IVPB IV SCH ×2 (00:46)
[2020-09-21 01:03] LABS: ABG BASE EXCESS -5.9 MMOL/L (-2.5-2.5); ABG OXYGEN SATURATION 99 % (94-100); ABG PCO2 37 MMHG (35-45); ABG PO2 125 MMHG (79-93); ABG TCO2 20.1 MMOL/L (21.0-31.0)
[2020-09-21 01:10] LABS: ALLENS TEST POSITIVE
[2020-09-21 01:11] LABS: ABG PH 7.33 (7.37-7.43); INSPIRED O2 90; PATIENT TEMP 36.7; VENTILATOR YES
[2020-09-21] MEDS: D5 LR IV SOLUTION 1,000 ML IV SCH ×3 (03:20→20:10)
[2020-09-21 03:40] LABS: ABG BASE EXCESS -5.9 MMOL/L (-2.5-2.5); ABG OXYGEN SATURATION 95 % (94-100); ABG PCO2 35 MMHG (35-45); ABG PH 7.35 (7.37-7.43); ABG PO2 81 MMHG (79-93)
[2020-09-21 03:41] LABS: BASOPHILS # (AUTO) 0.1 10^3/uL (0.0-0.1); BASOPHILS % (AUTO) 1 % (0-10); EOSINOPHILS # (AUTO) 0.5 10^3/uL (0.0-0.3); EOSINOPHILS % (AUTO) 5 % (0-10); HEMATOCRIT 27 % (35-52); LYMPHOCYTES # (AUTO) 1.3 10^3/uL (1.0-4.0); LYMPHOCYTES % (AUTO) 13 % (12-44); MEAN CORPUSCULAR HEMOGLOBIN 30 pg (25-34); MEAN CORPUSCULAR HGB CONC 34 g/dL (32-36); MEAN CORPUSCULAR VOLUME 89 fL (80-99); MEAN PLATELET VOLUME 10.7 fL (9.0-12.2); MONOCYTES # (AUTO) 0.2 10^3/uL (0.0-1.0); MONOCYTES % (AUTO) 2 % (0-12); NEUTROPHILS % (AUTO) 80 % (42-75); PLATELET COUNT 149 10^3/uL (130-400); WHITE BLOOD COUNT 10.1 10^3/uL (4.3-11.0)
[2020-09-21 03:43] LABS: INSPIRED O2 100; PATIENT TEMP 36.6; VENTILATOR YES
[2020-09-21 03:52] LABS: CHLORIDE 113 MMOL/L (98-107); POTASSIUM 3.9 MMOL/L (3.6-5.0); SODIUM 140 MMOL/L (135-145)
[2020-09-21 03:53] LABS: CALCIUM 7.3 MG/DL (8.5-10.1)
[2020-09-21 03:54] LABS: GLUCOSE 80 MG/DL (70-105)
[2020-09-21 03:56] LABS: CARBON DIOXIDE 18 MMOL/L (21-32)
[2020-09-21 03:58] LABS: GFR ESTIMATED > 60; PHOSPHORUS 4.9 MG/DL (2.3-4.7)
[2020-09-21 03:59] LABS: BUN/CREATININE RATIO 11
[2020-09-21 04:00] LABS: MAGNESIUM 2.1 MG/DL (1.6-2.4)
[2020-09-21] MEDS ORDERED: PHARMACY TO DOSE IV SCH (04:00)
--- NOTE | 2020-09-21 04:06 | Pulmonary Progress Note ---
Subjective Time Seen by a Provider: 03:59 Subjective/Events-last exam Pt intubated last night secondary to respiratory distress. EICU doctor managed patient through the night. Sepsis Event Evaluation Height, Weight, BMI Height: '" Weight: lbs. oz. kg; 39.60 BMI Method: Focused Exam Lactate Level 09/20/20 07:40: Lactic Acid Level 2.19*H 09/20/20 10:00: Lactic Acid Level 1.77 09/20/20 22:28: Lactic Acid Level 2.19*H Exam Exam Vital Signs Date Time Temp Pulse Resp B/P (MAP) Pulse Ox O2 Delivery O2 Flow Rate FiO2 09/21/20 03:34 Mechanical Ventilator 50.00 09/21/20 02:42 Mechanical Ventilator 55.00 09/21/20 02:26 Mechanical Ventilator 60.00 09/21/20 02:10 Mechanical Ventilator 70.00 09/21/20 02:04 78 18 100 80 09/21/20 02:00 75 18 133/62 (85) 100 Mechanical Ventilator 80.00 09/21/20 01:00 80 18 133/67 (89) 100 Mechanical Ventilator 80.00 09/21/20 01:00 80 09/21/20 00:58 Mechanical Ventilator 80.00 09/21/20 00:48 105 09/21/20 00:30 Mechanical Ventilator 90.00 09/21/20 00:00 74 19 114/72 (86) 99 Mechanical Ventilator 90.00 09/20/20 23:20 76 21 98 100 09/20/20 23:00 76 22 121/73 (89) 95 NIV Bilevel 100.00 09/20/20 22:00 84 16 133/82 (99) 87 NIV Bilevel 100.00 09/20/20 22:00 105 09/20/20 21:50 Mechanical Ventilator 100.00 09/20/20 21:17 68/32 09/20/20 21:00 77 36 68/41 (50) 98 NIV Bilevel 100.00 09/20/20 20:00 36.5 09/20/20 20:00 96 30 96/68 (77) 96 NIV Bilevel 100.00 09/20/20 19:48 NIV Bilevel 100.00 09/20/20 19:41 105 09/20/20 19:38 105 09/20/20 19:00 107 09/20/20 19:00 106 26 137/74 (95) 78 NIV Bilevel 100.00 09/20/20 17:53 Vapotherm 40.00 100.00 09/20/20 17:01 90 36 93 60.00 09/20/20 17:00 70 18 110/60 (77) 96 NIV Bilevel 60.00 09/20/20 16:00 106 30 113/55 (74) 95 Vapotherm 20.00 100.00 09/20/20 16:00 36.1 09/20/20 15:50 Vapotherm 20.00 100.00 09/20/20 15:25 99 95 09/20/20 15:00 85 24 114/60 (78) 95 Vapotherm 20.00 60.00 09/20/20 14:03 90 Vapotherm 20.00 60 09/20/20 14:00 86 25 107/61 (76) 95 Vapotherm 20.00 60.00 09/20/20 13:00 80 09/20/20 13:00 84 23 102/68 (79) 95 Vapotherm 20.00 60.00 09/20/20 12:00 79 21 104/64 (77) 94 Vapotherm 20.00 60.00 09/20/20 11:25 93 Vapotherm 20.00 60 09/20/20 11:00 82 26 91 Vapotherm 20.00 60.00 09/20/20 10:52 93 20.00 60 09/20/20 10:00 82 21 110/57 (74) 95 Vapotherm 20.00 60.00 09/20/20 09:00 81 35 100/45 (63) 95 Vapotherm 20.00 60.00 09/20/20 09:00 93 20.00 60 09/20/20 08:05 96 Non Rebreather 15.00 09/20/20 08:00 92 29 117/79 (92) 94 Vapotherm 20.00 60.00 09/20/20 07:45 101 19 130/68 (88) 92 Vapotherm 20.00 60.00 09/20/20 07:00 95 09/20/20 06:10 36.6 81 24 104/52 (69) 93 Nasal Cannula 6.00 09/20/20 05:00 94 26 111/62 (78) 93 Nasal Cannula 4.00 09/20/20 04:25 85 Nasal Cannula 5.00 09/20/20 04:00 94 20 104/49 (67) 89 Nasal Cannula 5.00 I & O 09/21/20 07:00 Intake Total 470 ml Output Total 650 ml Balance -180 ml Height & Weight Height: '" Weight: lbs. oz. kg; 39.60 BMI Method: General Appearance: Other (sedated, on vent) HEENT: PERRL/EOMI, Moist Mucous Membranes Neck: Normal Inspection, Supple Respiratory: Decreased Breath Sounds, Rhonci, Other (on vent, bilateral breath sounds) Cardiovascular: Regular Rate, Rhythm, No Murmur Capillary Refill: Less Than 3 Seconds Gastrointestinal: non tender, soft Extremity: Normal Capillary Refill, No Calf Tenderness, No Pedal Edema Neurologic/Psychiatric: Alert, Oriented x3, Normal Mood/Affect Skin: Normal Color, Warm/Dry, Other (incision site clean and dry, mayra in place) Lymphatic: No Adenopathy Results Lab Laboratory Tests 09/19/20 19:50 09/20/20 05:57 09/20/20 22:28 09/21/20 03:28 Assessment/Plan Assessment/Plan Acute Respiratory failure with ARDS -EICU doctor managed pt through the night -Add Fentanyl to propofol -Hold Nimbex. -COVID PCR pending -Influenza negative -Current vent settings per EICU: Vt 550, rr 18, Peep 14 Fi02 of 50% -Pt is 5ft and ideal body wt is 45.5 kg -Will decrease VT from 550 to 400 with RR 26. -UPDATE: ABG reviewed will decrease VT to 370 and increase PEEP to 16 repeat ABG in 1hr. -Will use permissive hypercapnia. -Will check Respiratory viral panel -Will start proning today if ok with Dr. Matute -Dr. Stevens attempted to transfer pt however after calling [facility] no hospital accepted pt. Hypotensive -Currently on Levophed -Will add solucortef Metabolic lactic acidosis UPDATE: I was just notified pt's and close contact is positive for COVID. We will treat pt as COVID. If family consents will start Remdesivir and CVP. Clinically pt appears to have COVID-19. Will change Solucortef to Decadron 10mg IV daily . Critical Care: Critically Ill Patient Time spent with patient (mins): 90 JERMAIN WALSH DO Sep 21, 2020 04:06
[2020-09-21] MEDS: NOREPINEPHRINE 4 MG/250 ML 250 ML IV SCH ×3 (04:53→23:20)
[2020-09-21] MEDS: PIPERACILLIN/TAZOBACTAM (BULK) 4.5 GM in NS (IVPB) 100 ML IV SCH ×3 (05:51→23:20)
[2020-09-21] MEDS: inSUlin ASPART (NovoLOG) 1 UNIT/0.01 ML (CHARGE PER UNIT) SQ SCH ×3 (05:52→17:39)
[2020-09-21] MEDS ORDERED: HYDROCORTISONE 100 MG/2 ML (Solu-CORTEF) VIAL IV SCH (06:00)
[2020-09-21 06:16] LABS: ABG OXYGEN SATURATION 91 % (94-100); ABG PCO2 40 MMHG (35-45); ABG PO2 73 MMHG (79-93); ABG TCO2 20.6 MMOL/L (21.0-31.0)
[2020-09-21 06:19] LABS: ALLENS TEST POSITIVE; INSPIRED O2 60; PATIENT TEMP 36.6; VENTILATOR YES
[2020-09-21] MEDS ORDERED: fentaNYL INJECTION 100 MCG/2 ML AMP ONE (06:29)
[2020-09-21] MEDS ORDERED: fentaNYL INJECTION 100 MCG/2 ML AMP IVP ONE (06:30)
[2020-09-21] MEDS: fentaNYL DRIP PRE-MIX 250 ML IV SCH ×2 (06:38→20:09)
--- NOTE | 2020-09-21 06:40 | NUR ---
Rene NEGRETE SPOKE WITH THE FAMILY. GAVE UPDATE THAT SHE IS RESPONDING TO TREATMENT. STILL NO AVAILABLE BEDS OPEN IN THE AREA. MOTHER WAS MORE AT EASE, WITH KNOWING THAT SHE IS RESPONDING TO TREATMENT. STILL WOULD LIKE TO TRY AND TRANSFER IF POSSIBLE, UNDERSTANDS IF IT IS NOT POSSIBLE.
[2020-09-21] MEDS ORDERED: REMDESIVIR INJ 200 MG in NS (IVPB) 210 ML IV ONE (07:15)
--- NOTE | 2020-09-21 07:17 | NUR ---
TIME LINE NOTE: 1947- PLACED ON BIPAP. 100% FIO2. SETTINGS 30/06. PLACED ON PRECEDEX. 2014- DECREASE BP TO 70'S/30'S. 2019- DECREASE PRECEDEX. 2040- PERSISTENT HYPOTENSION. 1L NS BOLUS. UPDATE KRISHNA WITH RESPIRATORY ASSESSMENT. RR 40'S. RETRACTING. REFER TO EICU. 2042- EICU CONTACTED, PHYSICIAN WILL CALL BACK. 2051- CAMERA IN TO THE ROOM. CONTACTED ON THE PHONE. DR. MONET ORDERED TO INTUBATE, CENTRAL LINE, START PRESSORS, AND STAT ECHO. 2116- LEVOPHED STARTED. 2119- EVERYONE TO ROOM FOR INTUBATION AND CENTRAL LINE PROCEDURE. 2125- ETOMIDATE 20MG GIVEN. 2126- ROCC 50 MG GIVEN. 2133- ETOMIDATE 20 MG GIVEN. INTUBATED 2134. BAGGING. COLOR CHANGE ON ENTIDAL MONITOR. BILATERAL BREATH SOUNDS NOTED. 24 AT THE TEETH. VENT SET TO TV- 450, FIO2- 100%, RR 18, PEEP 7. 2138- OG TUBE PLACED. 2149- CENTRAL LINE PLACED. 2154- XRAY. DR. SNIDER ORDERED TO RETRACT THE TUBE TO 19 CM AT THE TEETH. 2199-- CADEN, RN AND MONICA RN SPOKE WITH FAMILY GIVING UPDATES ON CONDITION. FAMILY WOULD LIKE US TO TRY AND TRANSFER PATIENT OUT. UPSET THAT SHE IS SO SICK. 2205- FULL SET OF LABS ORDERED. 2257- DR. KELLER HERE TO ASSESS PATIENT. LACTIC ACID LEVEL REPORTED TO HER. 2333- DR. KELLER AND CADEN, RN, SPOKE WITH FAMILY. GAVE UPDATE. INFORMED THERE ARE NOT ANY AVAILABLE ICU BEDS OPEN IN A 5 HOURS [facility] OF THE HOSPITAL.
--- NOTE | 2020-09-21 07:34 | Diagnostic Imaging Report ---
INDICATION: ET tube placement. This film is entered at 12:05 PM. There is right mainstem intubation. There is severe 5 lobed airspace disease. An OG catheter is in the stomach. Per the provided note on the film, physician review of this exam prompted ET tube withdrawal and the subsequent radiograph showed the device with its tip above the javi in the lower thoracic trachea. A right IJ at the SVC. IMPRESSION: Severe 5 lobed airspace disease. Right mainstem intubation at this exam was subsequently corrected with device repositioning. Dictated by: Dictated on workstation # [id number]
--- NOTE | 2020-09-21 08:10 | Diagnostic Imaging Report ---
INDICATION: Catheter placement This film is entered at 10:08 PM and compared with an exam of 10:05 PM. Since the prior, there has been withdrawal of ET tube now with its tip at the lower thoracic trachea just above the javi. There is symmetrical lung expansion and profound 5 lobed airspace disease redemonstrated. Right IJ projects in good position at the low SVC level. There is an OG catheter extending into the stomach. No pneumothorax. IMPRESSION: ET tube in the lower thoracic trachea, just above the javi. Severe 5 lobed airspace disease is present. Remaining support apparatus in stable and good alignment. Dictated by: Dictated on workstation # [id number]
[2020-09-21] MEDS: RT-ALBUTEROL INHALER HFA (VENTOLIN HFA) 18 GM IH SCH ×5 (08:18→21:09)
--- NOTE | 2020-09-21 08:27 | Postpartum Progress Note ---
Note Note Day # 2 Subjective: Patient is intubated and in ICU due to respiratory failure with COVID testing pending. FOB tested positive. Patient is under management of ICU/Pulmonary and Medical teams. Objective: Physical Exam: Deferred to limit exposure, patient prone and ventilated Assessment: POD 2 PLTCS Respiratory failure intubated in ICU Suspected COVID Plan: At this point in her postoperative care, medical management trumps any of my recommendations. I will follow patients status and check in with patient when patient is extubated and status has improved/stabilized. Vitals - Labs Vital Signs - I&O Vital Signs Date Time Temp Pulse Resp B/P (MAP) Pulse Ox O2 Delivery O2 Flow Rate FiO2 09/21/20 08:00 83 25 108/54 (72) 92 Mechanical Ventilator 60.00 09/21/20 07:00 84 25 109/53 (71) 95 Mechanical Ventilator 60.00 09/21/20 07:00 83 09/21/20 06:44 94/43 09/21/20 06:00 101 25 136/52 (80) 95 Mechanical Ventilator 60.00 09/21/20 05:00 101 25 137/51 (79) 94 Mechanical Ventilator 60.00 09/21/20 04:53 154/65 09/21/20 04:33 Mechanical Ventilator 60.00 09/21/20 04:28 104 26 94 80 09/21/20 04:00 91 17 115/64 (81) 96 Mechanical Ventilator 50.00 09/21/20 03:34 Mechanical Ventilator 50.00 09/21/20 03:00 85 18 121/45 (70) 95 Mechanical Ventilator 55.00 09/21/20 02:42 Mechanical Ventilator 55.00 09/21/20 02:26 Mechanical Ventilator 60.00 09/21/20 02:10 Mechanical Ventilator 70.00 09/21/20 02:04 78 18 100 80 09/21/20 02:00 75 18 133/62 (85) 100 Mechanical Ventilator 80.00 09/21/20 01:00 80 18 133/67 (89) 100 Mechanical Ventilator 80.00 09/21/20 01:00 80 09/21/20 00:58 Mechanical Ventilator 80.00 09/21/20 00:48 105 09/21/20 00:30 Mechanical Ventilator 90.00 09/21/20 00:00 74 19 114/72 (86) 99 Mechanical Ventilator 90.00 09/20/20 23:20 76 21 98 100 09/20/20 23:00 76 22 121/73 (89) 95 Mechanical Ventilator 100.00 09/20/20 22:00 84 16 133/82 (99) 87 Mechanical Ventilator 100.00 09/20/20 22:00 105 09/20/20 21:50 Mechanical Ventilator 100.00 09/20/20 21:17 68/32 09/20/20 21:00 77 36 68/41 (50) 98 NIV Bilevel 100.00 09/20/20 20:23 94 NIV Bilevel 100 09/20/20 20:00 36.5 09/20/20 20:00 96 30 96/68 (77) 96 NIV Bilevel 100.00 09/20/20 19:48 NIV Bilevel 100.00 09/20/20 19:41 105 09/20/20 19:38 105 09/20/20 19:00 107 09/20/20 19:00 106 26 137/74 (95) 78 NIV Bilevel 100.00 09/20/20 17:53 Vapotherm 40.00 100.00 09/20/20 17:01 90 36 93 60.00 09/20/20 17:00 70 18 110/60 (77) 96 NIV Bilevel 60.00 09/20/20 16:00 106 30 113/55 (74) 95 Vapotherm 20.00 100.00 09/20/20 16:00 36.1 09/20/20 15:50 Vapotherm 20.00 100.00 09/20/20 15:25 99 95 09/20/20 15:00 85 24 114/60 (78) 95 Vapotherm 20.00 60.00 09/20/20 14:03 90 Vapotherm 20.00 60 09/20/20 14:00 86 25 107/61 (76) 95 Vapotherm 20.00 60.00 09/20/20 13:00 80 09/20/20 13:00 84 23 102/68 (79) 95 Vapotherm 20.00 60.00 09/20/20 12:00 79 21 104/64 (77) 94 Vapotherm 20.00 60.00 09/20/20 11:25 93 Vapotherm 20.00 60 09/20/20 11:00 82 26 91 Vapotherm 20.00 60.00 09/20/20 10:52 93 20.00 60 09/20/20 10:00 82 21 110/57 (74) 95 Vapotherm 20.00 60.00 09/20/20 09:00 81 35 100/45 (63) 95 Vapotherm 20.00 60.00 09/20/20 09:00 93 20.00 60 I & O 09/21/20 07:00 Intake Total 3320 ml Output Total 2750 ml Balance 570 ml Labs Laboratory Tests 09/20/20 09:40: Blood Gas Puncture Site LT RAD, Blood Gas Patient Temperature 96.0, Arterial Blood pH 7.40, Arterial Blood Partial Pressure CO2 30L, Arterial Blood Partial Pressure O2 92, Arterial Blood HCO3 18L, Arterial Blood Total CO2 19.4L, Arterial Blood Oxygen Saturation 98, Arterial Blood Base Excess -5.8L, Roger Test YES-POS, Blood Gas Ventilator Setting NO, Blood Gas Inspired Oxygen 60% 09/20/20 10:00: Lactic Acid Level 1.77 09/20/20 10:30: Urine Color REDH, Urine Clarity CLOUDY, Urine pH 5.5, Urine Specific [place] 1.015L, Urine Protein 1+H, Urine Glucose (UA) NEGATIVE, Urine Ketones NEGATIVE, Urine Nitrite NEGATIVE, Urine Bilirubin NEGATIVE, Urine Urobilinogen 0.2, Urine Leukocyte Esterase 2+H, Urine RBC (Auto) 3+H, Urine RBC TNTCH, Urine WBC 10-25H, Urine Squamous Epithelial Cells 0-2, Urine Crystals NONE, Urine Bacteria NEGATIVE, Urine Casts NONE, Urine Mucus NEGATIVE, Urine Culture Indicated YES, Urine Legionella pneumophilia Ag Negative, Streptococcus pneumoniae Antigen Negative 09/20/20 20:32: Blood Gas Puncture Site LEFT RADIAL, Blood Gas Patient Temperature 36.4, Arterial Blood pH 7.36L, Arterial Blood Partial Pressure CO2 35, Arterial Blood Partial Pressure O2 89, Arterial Blood HCO3 19L, Arterial Blood Total CO2 20.5L, Arterial Blood Oxygen Saturation 96, Arterial Blood Base Excess -5.1L, Roger Test POSITIVE, Blood Gas Ventilator Setting NO, Blood Gas Inspired Oxygen 100 09/20/20 22:28: White Blood Count 10.7, Red Blood Count 3.07L, Hemoglobin 9.1L, Hematocrit 28L, Mean Corpuscular Volume 90, Mean Corpuscular Hemoglobin 30, Mean Corpuscular Hemoglobin Concent 33, Red Cell Distribution Width 13.9, Platelet Count 138, Mean Platelet Volume 10.8, Prothrombin Time 16.4H, INR Comment 1.3, Fibrinogen 594H, Sodium Level 137, Potassium Level 3.6, Chloride Level 111H, Carbon Dioxide Level 17L, Anion Gap 9, Blood Urea Nitrogen 10, Creatinine 0.83, Estimat Glomerular Filtration Rate > 60, BUN/Creatinine Ratio 12, Glucose Level 92, Lactic Acid Level 2.19*H, Calcium Level 7.2L, Corrected Calcium 8.6, Magnesium Level 2.8H, Total Bilirubin 0.8, Aspartate Amino Transf (AST/SGOT) 45H, Alanine Aminotransferase (ALT/SGPT) 7, Alkaline Phosphatase 104, Total Protein 4.5L, Albumin 2.2L 09/21/20 00:51: Blood Gas Puncture Site LEFT ARTLINE, Blood Gas Patient Temperature 36.7, Lisy rial Blood pH 7.33*L, Arterial Blood Partial Pressure CO2 37, Arterial Blood Partial Pressure O2 125H, Arterial Blood HCO3 19L, Arterial Blood Total CO2 20.1L, Arterial Blood Oxygen Saturation 99, Arterial Blood Base Excess -5.9L, Roger Test POSITIVE, Blood Gas Ventilator Setting YES, Blood Gas Inspired Oxygen 90, Coronavirus 2019 (LYDIA) Negative 09/21/20 03:28: White Blood Count 10.1, Red Blood Count 3.01L, Hemoglobin 9.0L, Hematocrit 27L, Mean Corpuscular Volume 89, Mean Corpuscular Hemoglobin 30, Mean Corpuscular Hemoglobin Concent 34, Red Cell Distribution Width 14.2, Platelet Count 149, Mean Platelet Volume 10.7, Sodium Level 140, Potassium Level 3.9, Chloride Level 113H, Carbon Dioxide Level 18L, Anion Gap 9, Blood Urea Nitrogen 10, Creatinine 0.90, Estimat Glomerular Filtration Rate > 60, BUN/Creatinine Ratio 11, Glucose Level 80, Calcium Level 7.3L, Magnesium Level 2.1, Blood Gas Puncture Site LEFT ARTLINE, Blood Gas Patient Temperature 36.6, Arterial Blood pH 7.35L, Arterial Blood Partial Pressure CO2 35, Arterial Blood Partial Pressure O2 81, Arterial Blood HCO3 19L, Arterial Blood Total CO2 20.0L, Arterial Blood Oxygen Saturation 95, Arterial Blood Base Excess -5.9L, Roger Test UNKNOWN, Blood Gas Ventilator Setting YES, Blood Gas Inspired Oxygen 100, Immature Granulocyte % (Auto) 0, Neutrophils (%) (Auto) 80H, Lymphocytes (%) (Auto) 13, Monocytes (%) (Auto) 2, Eosinophils (%) (Auto) 5, Basophils (%) (Auto) 1, Neutrophils # (Auto) 8.0H, Lymphocytes # (Auto) 1.3, Monocytes # (Auto) 0.2, Eosinophils # (Auto) 0.5H, Basophils # (Auto) 0.1, Immature Granulocyte # (Auto) 0.0, Phosphorus Level 4.9H 09/21/20 04:24: Lactic Acid Level 2.16*H 09/21/20 05:50: Blood Gas Puncture Site LEFT ARTLINE, Blood Gas Patient Temperature 36.6, Arterial Blood pH 7.30*L, Arterial Blood Partial Pressure CO2 40, Arterial Blood Partial Pressure O2 73L, Arterial Blood HCO3 19L, Arterial Blood Total CO2 20.6L , Arterial Blood Oxygen Saturation 91L, Arterial Blood Base Excess -6.0L, Roger Test POSITIVE, Blood Gas Ventilator Setting YES, Blood Gas Inspired Oxygen 60 Microbiology 09/19/20 Influenza Types A,B Antigen (LEYLA) - Final, Complete 09/19/20 Gram Stain - Final, Resulted 09/19/20 Anaerobic Culture, Resulted Pending 09/19/20 Surgical Culture - Preliminary, Resulted No growth GAIL COSBY DO Sep 21, 2020 08:27
[2020-09-21] MEDS: AZITHROMYCIN INJECTION 250 MG in NS (IVPB) 250 ML IV SCH (08:38)
[2020-09-21] MEDS: VANCOMYCIN 1250 MG/NS 250 ML IVPB IV SCH ×4 (08:38→23:19)
[2020-09-21] MEDS: PANTOPRAZOLE 40 MG (PROTONIX) VIAL IV SCH (08:38)
[2020-09-21] MEDS: DOCUSATE SODIUM 10 MG/ML 10 ML UDC (COLACE) PO SCH ×2 (08:39→20:10)
[2020-09-21] MEDS: ENOXAPARIN 40 MG/0.4 ML (LOVENOX) SYR SC SCH (08:39)
--- NOTE | 2020-09-21 10:13 | Progress Note - Hospitalist ---
Subjective HPI/CC On Admission Date Seen by Provider: Sep 21, 2020 Time Seen by Provider: 10:07 Pt is a 20yoCF who was admitted to L&D for induction at 40.3wga due to being post dates. Induction was complicated by maternal fever and subsequent loss of variability in FHT and was taken for emergent . Overnight she developed cough and hypoxia as well and was transferred to the ICU. She reports she is feeling better now that she has a nonrebreather on. Her cough started abruptly this morning and her tmax was 40.1 last night. Subjective/Events-last exam Pt is intubated and sedated. No ROS possible. Had just been proned. Focused Exam Lactate Level 09/20/20 10:00: Lactic Acid Level 1.77 09/20/20 22:28: Lactic Acid Level 2.19*H 09/21/20 04:24: Lactic Acid Level 2.16*H Objective Exam Vital Signs Vital Signs Date Time Temp Pulse Resp B/P (MAP) Pulse Ox O2 Delivery O2 Flow Rate FiO2 09/21/20 14:00 86 26 136/86 (103) 96 Mechanical Ventilator 100.00 09/21/20 11:45 36.8 09/21/20 10:18 100 Capillary Refill : Less Than 3 Seconds General Appearance: Other (very ill, sedated and on vent) Respiratory: Rhonci; No Wheezing; Other (sedated on vent) Cardiovascular: Regular Rate, Rhythm, No Murmur Genital/Rectal: Other (pad with minimal lochia noted, ayala in place) Neurologic/Psychiatric: Other (sedated, appears comfortable) Results/Procedures Lab Laboratory Tests 09/20/20 22:28 09/21/20 03:28 Patient resulted labs reviewed. Imaging: Reviewed Imaging Report Assessment/Plan Assessment and Plan Assess & Plan/Chief Complaint Septic Shock acute hypoxic Respiratory failure COVID PUI Clinically this appears to be COVID, will remain in isolation COVID PCR negative but father of baby positive, I believe that to be a false negative, repeat pending, COVID ab pending Pulm and TeleICU consulted, appreciate recs Decadron, remdesivir, convalescent plasma ordered Weaning off pressors Nimbex DC-ed by Dr Dodge POD #2 s/p emergent c/s section Management per OB consult Protein creatinine ratio elevated, discussed with Dr Matute, no indication for magnesium at this time DVT ppx: Lovenox Update at 1400: Family again requests transfer to higher level of care. We [place] multiple [place] all of whom are on ICU diversion. Discussed with [facility] about treatment options and they agreed with our treatment here and would not make any changes. Critical Care Critically Ill Patient Diagnosis/Problems Diagnosis/Problems (1) Acute respiratory failure Qualifiers: Respiratory failure complication: hypoxia Qualified Codes: J96.01 - Acute respiratory failure with hypoxia (2) Person under investigation for COVID-19 Status: Acute (3) Sepsis Status: Acute Qualifiers: Sepsis type: sepsis due to unspecified organism Sepsis acute organ dysfunction status: with acute organ dysfunction Severe sepsis acute organ dysfunction type: acute respiratory failure Acute respiratory failure type: with hypoxia Severe sepsis shock status: without septic shock Qualified Codes: A41.9 - Sepsis, unspecified organism; R65.20 - Severe sepsis without septic shock; J96.01 - Acute respiratory failure with hypoxia Clinical Quality Measures DVT/VTE Risk/Contraindication: Risk Factor Score Per Nursin RFS Level Per Nursing on Admit: 1=Low/No VTE PPX VALENTINO KELLER MD Sep 21, 2020 10:13
--- NOTE | 2020-09-21 10:26 | Diagnostic Imaging Report ---
INDICATION: Mechanical ventilation. TECHNIQUE: Single view chest 7:31 AM. CORRELATION STUDY: 09/20/2020 FINDINGS: Endotracheal tube and gastric tube remain in place. There is extensive opacification throughout both lung chew. Given difference technique likely relatively stable to perhaps slightly improved. Mediastinal structures are grossly unchanged but are largely obscured. IMPRESSION: 1. Extensive opacification throughout the lung chew stable to perhaps very minimally improved. 2. Stable appearance about support lines and tubes. Dictated by: Dictated on workstation # [id number]
--- NOTE | 2020-09-21 11:09 | Physical Therapy Progress Note ---
Therapy Progress Note Patient intubated. Will continue to follow. PRABHA LARA PT Sep 21, 2020 11:09
[2020-09-21 11:17] LABS: ABG BASE EXCESS -7.4 MMOL/L (-2.5-2.5); ABG OXYGEN SATURATION 87 % (94-100); ABG PCO2 46 MMHG (35-45); ABG PO2 69 MMHG (79-93); ABG TCO2 20.2 MMOL/L (21.0-31.0)
[2020-09-21 11:19] LABS: ABG PH 7.24 (7.37-7.43); INSPIRED O2 60%; PATIENT TEMP 36.8; VENTILATOR NO
[2020-09-21] MEDS ORDERED: ETOMIDATE IV SOLN 20 MG/10 ML VIAL IV ONE (16:07)
[2020-09-21] MEDS ORDERED: ROCURONIUM 50 MG/5 ML (ZEMURON) VIAL IV ONE (16:07)
[2020-09-21] MEDS: PROPOFOL DRIP (ICU) 100 ML IV SCH ×2 (16:32→16:33)
[2020-09-22] VITALS (29 sets, daily range): BP systolic 96–140; BP diastolic 49–86
[2020-09-22] MEDS: inSUlin ASPART (NovoLOG) 1 UNIT/0.01 ML (CHARGE PER UNIT) SQ SCH ×5 (00:13→23:09)
[2020-09-22] MEDS: ACETAMINOPHEN 325 MG TABLET PO PRN (00:24)
[2020-09-22] MEDS: HYDROcodone/APAP 5 MG/325 MG (LORTAB) TAB PO PRN (00:24)
[2020-09-22] MEDS: IBUPROFEN 600 MG (MOTRIN) TAB PO SCH ×2 (00:25→05:43)
[2020-09-22] MEDS: RT-ALBUTEROL INHALER HFA (VENTOLIN HFA) 18 GM IH SCH ×6 (01:56→21:58)
[2020-09-22] MEDS: D5 LR IV SOLUTION 1,000 ML IV SCH ×3 (03:33→18:07)
[2020-09-22] MEDS: NOREPINEPHRINE 4 MG/250 ML 250 ML IV SCH ×3 (03:33→19:18)
[2020-09-22] MEDS: PROPOFOL DRIP (ICU) 100 ML IV SCH ×3 (03:34→22:57)
[2020-09-22 03:51] LABS: ABG BASE EXCESS -6.2 MMOL/L (-2.5-2.5); ABG OXYGEN SATURATION 95 % (94-100); ABG PCO2 37 MMHG (35-45); ABG PO2 77 MMHG (79-93); ABG TCO2 20.1 MMOL/L (21.0-31.0)
[2020-09-22 03:52] LABS: ABG PH 7.32 (7.37-7.43); BASOPHILS % (AUTO) 0 % (0-10); EOSINOPHILS % (AUTO) 0 % (0-10); HEMATOCRIT 24 % (35-52); HEMOGLOBIN 7.9 g/dL (11.5-16.0); LYMPHOCYTES # (AUTO) 1.2 10^3/uL (1.0-4.0); LYMPHOCYTES % (AUTO) 7 % (12-44); MEAN CORPUSCULAR HEMOGLOBIN 30 pg (25-34); MEAN CORPUSCULAR HGB CONC 33 g/dL (32-36); MEAN CORPUSCULAR VOLUME 92 fL (80-99); MEAN PLATELET VOLUME 10.8 fL (9.0-12.2); MONOCYTES # (AUTO) 0.7 10^3/uL (0.0-1.0); MONOCYTES % (AUTO) 4 % (0-12); NEUTROPHILS # (AUTO) 15.2 10^3/uL (1.8-7.8); NEUTROPHILS % (AUTO) 88 % (42-75); PLATELET COUNT 196 10^3/uL (130-400); WHITE BLOOD COUNT 17.3 10^3/uL (4.3-11.0)
[2020-09-22 03:53] LABS: INSPIRED O2 45; PATIENT TEMP 37.4; VENTILATOR YES
[2020-09-22 03:57] LABS: CALCIUM 7.4 MG/DL (8.5-10.1)
[2020-09-22 04:01] LABS: PHOSPHORUS 4.8 MG/DL (2.3-4.7)
[2020-09-22 04:02] LABS: CREATININE SERUM 1.3 MG/DL (0.60-1.30)
[2020-09-22 04:04] LABS: MAGNESIUM 2.1 MG/DL (1.6-2.4)
[2020-09-22] MEDS ORDERED: SODIUM BICARB 8.4% 50 MEQ/50 ML VIAL IV ONE (04:15)
--- NOTE | 2020-09-22 04:18 | Pulmonary Progress Note ---
Subjective Time Seen by a Provider: 04:13 Subjective/Events-last exam Sedated on vent. Sepsis Event Evaluation Height, Weight, BMI Height: '" Weight: lbs. oz. kg; 39.60 BMI Method: Focused Exam Lactate Level 09/20/20 22:28: Lactic Acid Level 2.19*H 09/21/20 04:24: Lactic Acid Level 2.16*H 09/21/20 18:20: Lactic Acid Level 1.72 Exam Exam Vital Signs Date Time Temp Pulse Resp B/P (MAP) Pulse Ox O2 Delivery O2 Flow Rate FiO2 09/22/20 03:34 80 09/22/20 03:33 80 09/22/20 01:57 88 26 91 45 09/22/20 01:40 37.3 09/22/20 01:40 37.3 09/22/20 01:39 37.3 09/22/20 01:00 88 09/22/20 00:25 38.3 09/22/20 00:24 38.3 09/22/20 00:24 38.3 09/22/20 00:10 38.1 09/21/20 23:21 Mechanical Ventilator 45.00 09/21/20 22:15 Mechanical Ventilator 50.00 09/21/20 21:28 94 Mechanical Ventilator 55 09/21/20 21:09 81 26 92 55 09/21/20 21:00 75 26 134/96 (109) 94 Mechanical Ventilator 55.00 09/21/20 20:16 36.7 85 26 128/78 94 Mechanical Ventilator 55 09/21/20 20:04 37.2 09/21/20 20:00 83 26 118/77 (91) 94 Mechanical Ventilator 55.00 09/21/20 19:00 80 25 113/79 (90) 94 Mechanical Ventilator 55.00 09/21/20 19:00 80 09/21/20 18:12 81 26 94 55 09/21/20 18:00 84 23 130/73 (92) 92 Mechanical Ventilator 100.00 09/21/20 17:30 37.2 85 26 120/71 92 Mechanical Ventilator 55 09/21/20 17:15 37.0 87 26 129/66 95 Mechanical Ventilator 50 09/21/20 17:00 85 25 115/71 (86) 96 Mechanical Ventilator 100.00 09/21/20 16:35 85 28 95 70 09/21/20 16:33 84 09/21/20 16:32 84 09/21/20 16:18 36.2 09/21/20 16:00 78 26 141/81 (101) 97 Mechanical Ventilator 100.00 09/21/20 15:36 37.1 09/21/20 15:00 78 23 134/81 (98) 96 Mechanical Ventilator 100.00 09/21/20 14:00 86 26 136/86 (103) 96 Mechanical Ventilator 100.00 09/21/20 13:00 77 23 134/82 (99) 96 Mechanical Ventilator 100.00 09/21/20 12:39 79 09/21/20 12:00 79 23 121/79 (93) 97 Mechanical Ventilator 100.00 09/21/20 11:45 36.8 09/21/20 11:00 66 18 125/73 (90) 98 Mechanical Ventilator 100.00 09/21/20 10:30 Mechanical Ventilator 100.00 09/21/20 10:18 85 26 91 100 09/21/20 10:00 98 11 116/67 (83) 89 Mechanical Ventilator 60.00 09/21/20 09:00 96 Mechanical Ventilator 40 09/21/20 09:00 86 26 104/53 (70) 93 Mechanical Ventilator 60.00 09/21/20 08:00 83 25 108/54 (72) 92 Mechanical Ventilator 60.00 09/21/20 07:00 84 25 109/53 (71) 95 Mechanical Ventilator 60.00 09/21/20 07:00 83 09/21/20 06:44 94/43 09/21/20 06:00 101 25 136/52 (80) 95 Mechanical Ventilator 60.00 09/21/20 05:00 101 25 137/51 (79) 94 Mechanical Ventilator 60.00 09/21/20 04:53 154/65 09/21/20 04:33 Mechanical Ventilator 60.00 09/21/20 04:28 104 26 94 80 I & O 09/22/20 07:00 Intake Total 450 ml Output Total 480 ml Balance -30 ml Height & Weight Height: '" Weight: lbs. oz. kg; 39.60 BMI Method: General Appearance: Other (very ill, sedated and on vent) HEENT: PERRL/EOMI, Moist Mucous Membranes Neck: Normal Inspection, Supple Respiratory: Decreased Breath Sounds, Rhonci; No Wheezing; Other (sedated on vent) Cardiovascular: Regular Rate, Rhythm, No Murmur Capillary Refill: Less Than 3 Seconds Gastrointestinal: non tender, soft Extremity: Normal Capillary Refill, No Calf Tenderness Neurologic/Psychiatric: Other (sedated, appears comfortable) Skin: Other (incision site clean and dry, mayra in place) Results Lab Laboratory Tests 09/20/20 05:57 09/20/20 22:28 09/21/20 03:28 09/22/20 03:35 Assessment/Plan Assessment/Plan Acute Respiratory failure with ARDS with presumptive COVID secondary to significant other testing positive -Fi02 has improved to 35% -Decrease PEEP to 18 --EICU doctor managed pt through the night -Pt's COVID is negative however Pt's significant other is COVID positive. -Will continue to treat pt as presumptive COVID. -Anesthesia states pt did not aspirate during surgery. -Continue Remdesivir, and CVP -Decadron 10mg daily - Fentanyl, propofol - Nimbex is now off -Will give ativan pushes -COVID PCR pending -Influenza negative -Will use permissive hypercapnia. -Will check Respiratory viral panel -Will start proning today if ok with Dr. Matute Septic shock -Continue Vanco, Zosyn azithromycin -MRSA pending -Currently on Levophed Metabolic acidosis -Give 2 amps of bicarb JERMAIN WALSH DO Sep 22, 2020 04:18
[2020-09-22] MEDS ORDERED: SODIUM BICARB 8.4% 50 MEQ/50 ML VIAL ONE (04:21)
[2020-09-22 04:59] LABS: ATYPICAL LYMPHOCYTES 3 %; HYPOCHROMASIA MODERATE; LYMPHOCYTES % (MANUAL) 7 %; MONOCYTES % (MANUAL) 4 %; NEUTROPHILS % (MANUAL) 86 %
[2020-09-22 05:00] LABS: MICROCYTOSIS MODERATE
[2020-09-22] MEDS: PIPERACILLIN/TAZOBACTAM (BULK) 4.5 GM in NS (IVPB) 100 ML IV SCH ×3 (05:43→22:58)
[2020-09-22] MEDS: VANCOMYCIN 1250 MG/NS 250 ML IVPB IV SCH ×4 (05:43→22:58)
[2020-09-22] MEDS: POTASSIUM CL 10MEQ/50ML IVPB 50 ML IV SCH (05:44)
[2020-09-22] MEDS: MAGNESIUM 1 GM/100 ML IVPB 100 ML IV SCH (05:44)
[2020-09-22] MEDS: KCL 20 MEQ TAB (K-DUR) PO SCH (05:44)
[2020-09-22] MEDS: AZITHROMYCIN INJECTION 250 MG in NS (IVPB) 250 ML IV SCH (08:03)
[2020-09-22] MEDS: guaiFENesin/DM (ROBITUSSIN DM) 10 ML UDC NG SCH ×2 (08:04→20:29)
[2020-09-22] MEDS: fentaNYL DRIP PRE-MIX 250 ML IV SCH ×2 (08:04→20:29)
[2020-09-22] MEDS: ENOXAPARIN 40 MG/0.4 ML (LOVENOX) SYR SC SCH ×2 (08:04→08:33)
[2020-09-22] MEDS: DOCUSATE SODIUM 10 MG/ML 10 ML UDC (COLACE) PO SCH ×2 (08:04→20:29)
[2020-09-22] MEDS: PANTOPRAZOLE 40 MG (PROTONIX) VIAL IV SCH (08:04)
--- NOTE | 2020-09-22 08:04 | NUR ---
PATIENT PLACED ON BREAST PUMP FOR 15 MINUTES AT THIS TIME. NO COLOSTRUM OR MILK NOTED.
[2020-09-22] MEDS: REMDESIVIR INJ 100 MG in NS (IVPB) 230 ML IV SCH (08:20)
[2020-09-22] MEDS ORDERED: guaiFENesin (MUCINEX) 600 MG TAB PO SCH (09:00)
--- NOTE | 2020-09-22 09:45 | Diagnostic Imaging Report ---
INDICATION: On a ventilator. Patient is in COVID-19 precautions. Intubated. EXAMINATION: Single view chest from 09/22/2020 Comparison made to 09/21/2020 FINDINGS: Diffuse near complete opacification of both lungs noted worsened from previous imaging. Effusions not excluded. Heart prominent, pulmonary vasculature slightly congested. Right jugular line tip is in the SVC with an ET tube unremarkable. Feeding tube coiled in the left upper quadrant. IMPRESSION: 1. Near complete opacification of the lungs, worsened from previous imaging. Dictated by: Dictated on workstation # [id number]
[2020-09-22] MEDS: IBUPROFEN SUSP 100MG/5ML (MOTRIN) UDC NG SCH ×3 (13:02→23:10)
--- NOTE | 2020-09-22 13:19 | NUR ---
patient placed on breast pump for 15 minutes. no output noted. Rectal thermometer also placed at this time.
[2020-09-22] MEDS: LORazepam INJ 2 MG/ML (ATIVAN) VIAL IVP PRN (20:46)
--- NOTE | 2020-09-22 21:06 | NUR ---
UPDATED FAMILY OF PT CONDITION AT THIS TIME. ALL QUESTIONS ANSWERED.
[2020-09-23] VITALS (33 sets, daily range): BP systolic 107–168; BP diastolic 68–95
[2020-09-23] MEDS: NOREPINEPHRINE 4 MG/250 ML 250 ML IV SCH ×4 (00:06→22:03)
[2020-09-23] MEDS: D5 LR IV SOLUTION 1,000 ML IV SCH ×4 (00:50→19:54)
[2020-09-23 00:59] LABS: ABG BASE EXCESS -4.2 MMOL/L (-2.5-2.5); ABG OXYGEN SATURATION 99 % (94-100); ABG PCO2 30 MMHG (35-45); ABG PH 7.42 (7.37-7.43); ABG PO2 117 MMHG (79-93); ABG TCO2 20.6 MMOL/L (21.0-31.0); ALLENS TEST ARTLINE; INSPIRED O2 35; PATIENT TEMP 36.3; VENTILATOR YES
[2020-09-23] MEDS: RT-ALBUTEROL INHALER HFA (VENTOLIN HFA) 18 GM IH SCH ×6 (02:01→22:37)
[2020-09-23 03:36] LABS: BASOPHILS % (AUTO) 0 % (0-10); EOSINOPHILS % (AUTO) 0 % (0-10); HEMATOCRIT 22 % (35-52); LYMPHOCYTES # (AUTO) 1.6 10^3/uL (1.0-4.0); LYMPHOCYTES % (AUTO) 12 % (12-44); MEAN CORPUSCULAR HGB CONC 32 g/dL (32-36); MEAN CORPUSCULAR VOLUME 92 fL (80-99); MEAN PLATELET VOLUME 11.1 fL (9.0-12.2); MONOCYTES # (AUTO) 0.6 10^3/uL (0.0-1.0); MONOCYTES % (AUTO) 4 % (0-12); NEUTROPHILS # (AUTO) 11.2 10^3/uL (1.8-7.8); NEUTROPHILS % (AUTO) 84 % (42-75); PLATELET COUNT 190 10^3/uL (130-400); WHITE BLOOD COUNT 13.4 10^3/uL (4.3-11.0)
[2020-09-23 03:37] LABS: ABG BASE EXCESS -3.4 MMOL/L (-2.5-2.5); ABG OXYGEN SATURATION 100 % (94-100); ABG PCO2 29 MMHG (35-45); ABG PH 7.45 (7.37-7.43); ABG PO2 121 MMHG (79-93)
[2020-09-23 03:48] LABS: ALLENS TEST ARTLINE; INSPIRED O2 25; PATIENT TEMP 36.3; VENTILATOR YES
[2020-09-23 03:53] LABS: POTASSIUM 3.6 MMOL/L (3.6-5.0)
[2020-09-23 03:54] LABS: CALCIUM 6.8 MG/DL (8.5-10.1)
[2020-09-23 03:58] LABS: PHOSPHORUS 4.6 MG/DL (2.3-4.7)
[2020-09-23 03:59] LABS: CREATININE SERUM 1.62 MG/DL (0.60-1.30)
[2020-09-23 04:01] LABS: MAGNESIUM 2.2 MG/DL (1.6-2.4)
--- NOTE | 2020-09-23 04:05 | Pulmonary Progress Note ---
Subjective Time Seen by a Provider: 04:00 Subjective/Events-last exam Pt is sedated on vent. Sepsis Event Evaluation Height, Weight, BMI Height: '" Weight: lbs. oz. kg; 39.60 BMI Method: Focused Exam Lactate Level 09/20/20 22:28: Lactic Acid Level 2.19*H 09/21/20 04:24: Lactic Acid Level 2.16*H 09/21/20 18:20: Lactic Acid Level 1.72 Exam Exam Vital Signs Date Time Temp Pulse Resp B/P (MAP) Pulse Ox O2 Delivery O2 Flow Rate FiO2 09/23/20 03:00 36.2 58 25 119/69 (86) 97 Mechanical Ventilator 25.00 09/23/20 02:01 54 26 98 09/23/20 02:00 36.2 55 25 126/71 (89) 98 Mechanical Ventilator 25.00 09/23/20 01:00 36.3 56 26 120/68 (85) 98 Mechanical Ventilator 25.00 09/23/20 01:00 60 09/23/20 00:57 25 09/23/20 00:00 36.4 58 26 120/71 (87) 98 Mechanical Ventilator 25.00 09/22/20 23:14 25.00 09/22/20 23:00 36.5 66 25 123/73 (90) 98 Mechanical Ventilator 30.00 09/22/20 22:57 64 119/69 09/22/20 22:54 25 09/22/20 22:00 36.6 64 26 117/69 (85) 98 Mechanical Ventilator 30.00 09/22/20 21:58 64 26 98 30 09/22/20 21:00 98 Mechanical Ventilator 30 09/22/20 21:00 36.7 62 25 122/75 (91) 99 Mechanical Ventilator 30.00 09/22/20 20:00 36.6 60 26 112/60 (77) 99 Mechanical Ventilator 30.00 09/22/20 19:00 70 09/22/20 19:00 36.6 64 25 116/62 (80) 99 Mechanical Ventilator 30.00 09/22/20 18:39 59 26 98 30 09/22/20 18:00 36.6 62 25 111/62 (78) 99 Mechanical Ventilator 30.00 09/22/20 17:00 36.6 65 26 122/69 (86) 99 Mechanical Ventilator 30.00 09/22/20 16:00 36.7 80 22 140/74 (96) 94 Mechanical Ventilator 30.00 09/22/20 15:00 36.9 64 25 105/55 (72) 91 Mechanical Ventilator 30.00 09/22/20 14:52 70 26 93 30 09/22/20 14:00 37.0 62 26 107/57 (74) 94 Mechanical Ventilator 30.00 09/22/20 13:00 64 25 115/60 (78) 94 Mechanical Ventilator 30.00 09/22/20 13:00 66 09/22/20 12:07 63 26 99 30 09/22/20 12:00 64 26 98/60 (73) 99 Mechanical Ventilator 30.00 09/22/20 11:00 37.0 Mechanical Ventilator 30.00 09/22/20 11:00 66 25 106/57 (73) 99 Mechanical Ventilator 30.00 09/22/20 10:00 67 25 109/53 (71) 98 Mechanical Ventilator 50.00 09/22/20 09:00 69 25 98/61 (73) 99 Mechanical Ventilator 50.00 09/22/20 08:56 67 26 99 40 09/22/20 08:20 Mechanical Ventilator 50.00 09/22/20 08:15 100 Mechanical Ventilator 50 09/22/20 08:10 110/62 09/22/20 08:00 63 26 110/64 (79) 100 Mechanical Ventilator 60.00 09/22/20 08:00 36.6 Mechanical Ventilator 60.00 09/22/20 07:47 36.4 09/22/20 07:00 63 09/22/20 07:00 70 26 133/86 (102) 94 Mechanical Ventilator 55.00 09/22/20 06:00 79 25 102/58 (73) 94 Mechanical Ventilator 55.00 09/22/20 05:30 Mechanical Ventilator 55.00 09/22/20 05:00 80 26 117/60 (79) 96 Mechanical Ventilator 65.00 09/22/20 04:48 Mechanical Ventilator 65.00 09/22/20 04:12 37.1 I & O 09/23/20 07:00 Intake Total 2560.5 ml Output Total 550 ml Balance 2010.5 ml Height & Weight Height: '" Weight: lbs. oz. kg; 39.60 BMI Method: General Appearance: Other (very ill, sedated and on vent) HEENT: PERRL/EOMI, Moist Mucous Membranes Neck: Normal Inspection, Supple Respiratory: Rhonci; No Wheezing; Other (sedated on vent) Cardiovascular: Regular Rate, Rhythm, No Murmur Capillary Refill: Less Than 3 Seconds Gastrointestinal: soft Extremity: Normal Capillary Refill, No Calf Tenderness Neurologic/Psychiatric: Other (sedated, appears comfortable) Skin: Other (incision site clean and dry, mayra in place) Results Lab Laboratory Tests 09/22/20 03:35 09/23/20 03:20 Assessment/Plan Assessment/Plan Acute Respiratory failure with ARDS with presumptive COVID secondary to significant other testing positive -EICU doctor managed pt through the night -Fi02 has improved to 25% -Decrease PEEP to 10 decrease RR to 22. -Pt's COVID is negative however Pt's significant other is COVID positive. -Will continue to treat pt as presumptive COVID. -Discussed with anesthesia and he states pt did not aspirate during surgery. -Continue Remdesivir, and s/p 1 unit of CVP -Decadron 10mg daily -Add Fentanyl to propofol - Nimbex is now off -Will give ativan pushes -COVID PCR pending -Influenza negative -Will check Respiratory viral panel -Will start proning today if ok with Dr. Matute Septic shock -Continue Vanco, Zosyn azithromycin -D/C Vanco sophie with CR worsening -Cultures are negative thus far -MRSA pending -Currently off Levophed Anemia -WIll give 1 unit of PRBC typed and crossed. Acute renal failure -IVF - Will keep at 125 -Give a liter bolus over 2hours. -Monitor -D/C motrin Metabolic acidosis -Improving I discussed with family this morning and answered all of their questions to the best of my ability. JERMAIN WALSH DO Sep 23, 2020 04:05
[2020-09-23 04:16] LABS: HEMOGLOBIN 6.9 g/dL (11.5-16.0); MEAN CORPUSCULAR HEMOGLOBIN 29 pg (25-34)
[2020-09-23] MEDS: POTASSIUM CL 10MEQ/50ML IVPB 50 ML IV SCH ×5 (04:43→07:45)
[2020-09-23] MEDS: KCL 20 MEQ TAB (K-DUR) PO SCH (04:44)
[2020-09-23] MEDS: MAGNESIUM 1 GM/100 ML IVPB 100 ML IV SCH (04:44)
[2020-09-23] MEDS ORDERED: NS IV 500 ML 500 ML IV SCH (04:45)
[2020-09-23] MEDS ORDERED: NS (IVPB) 250 ML ONE (04:46)
[2020-09-23] MEDS ORDERED: LACTATED RINGERS 1,000 ML IV ONE ×2 (04:47→14:39)
[2020-09-23] MEDS: LACTATED RINGERS 1,000 ML IV SCH ×2 (05:04→05:18)
[2020-09-23] MEDS: PIPERACILLIN/TAZOBACTAM (BULK) 4.5 GM in NS (IVPB) 100 ML IV SCH ×3 (05:04→20:44)
[2020-09-23] MEDS: inSUlin ASPART (NovoLOG) 1 UNIT/0.01 ML (CHARGE PER UNIT) SQ SCH ×3 (05:04→17:45)
[2020-09-23] MEDS: fentaNYL DRIP PRE-MIX 250 ML IV SCH ×2 (06:05→16:21)
[2020-09-23] MEDS: PROPOFOL DRIP (ICU) 100 ML IV SCH ×4 (06:06→20:46)
--- NOTE | 2020-09-23 08:02 | Diagnostic Imaging Report ---
Indication: Respiratory failure Single AP view of the chest is obtained with comparison made to study of 09/22/2020. Extensive bilateral airspace disease is again demonstrated. There is mild overall improvement in aeration of the lungs particularly on the right. Support tubes and catheters remain in stable position. There is no pneumothorax. Impression: Extensive bilateral airspace disease compatible with edema and respiratory distress syndrome. There is mild overall improvement in aeration of lungs particularly on the right. Dictated by: Dictated on workstation # [id number]
--- NOTE | 2020-09-23 08:10 | Physical Therapy Progress Note ---
Therapy Progress Note Patient remains sedated and intubated. PT will continue to monitor patient status and initiate treatment when patient is medically stable and able to actively participate with skilled therapy. YINA GARCIA PT Sep 23, 2020 08:10
[2020-09-23] MEDS ORDERED: TROUGH ORDER-PHARMACY XX NR (08:30)
--- NOTE | 2020-09-23 08:35 | Occ Therapy Progress Note ---
Therapy Progress Note OT order received, chart reviewed. Will continue to monitor and assess pt. when medically stable and off ventilator support. [id number] SHERRIE KING OT Sep 23, 2020 08:35
[2020-09-23] MEDS: PANTOPRAZOLE 40 MG (PROTONIX) VIAL IV SCH (08:40)
[2020-09-23] MEDS: guaiFENesin/DM (ROBITUSSIN DM) 10 ML UDC NG SCH ×2 (08:40→19:54)
[2020-09-23] MEDS: DOCUSATE SODIUM 10 MG/ML 10 ML UDC (COLACE) PO SCH ×2 (08:40→19:54)
[2020-09-23] MEDS: REMDESIVIR INJ 100 MG in NS (IVPB) 230 ML IV SCH (08:40)
[2020-09-23] MEDS: AZITHROMYCIN INJECTION 250 MG in NS (IVPB) 250 ML IV SCH (08:40)
[2020-09-23] MEDS: ENOXAPARIN 40 MG/0.4 ML (LOVENOX) SYR SC SCH (08:40)
[2020-09-23 09:18] LABS: ABG BASE EXCESS -5.4 MMOL/L (-2.5-2.5); ABG OXYGEN SATURATION 98 % (94-100); ABG PCO2 35 MMHG (35-45); ABG PH 7.36 (7.37-7.43); ABG PO2 108 MMHG (79-93); ABG TCO2 20.3 MMOL/L (21.0-31.0)
[2020-09-23 09:21] LABS: ALLENS TEST YES-POS; INSPIRED O2 35%; PATIENT TEMP 36.5; VENTILATOR YES
--- NOTE | 2020-09-23 09:51 | NUR ---
CALL RECEIVED FROM CAROLINA PATEL, NO INFORMATION GIVEN TO THIS PERSON, ADVISED HER TO CALL FAMILY FOR ANY UPDATES.
--- NOTE | 2020-09-23 10:54 | NUR ---
ptd vancomycin labs: scr 1.62 (up from 0.84) vancomycin level 09/23 @ 0900 27.3 plan: Vancomycin was already d/becky by Dr Dodge early this morning, will not order any other follow up levels.
[2020-09-23 11:59] LABS: ALBUMIN 2.2 GM/DL (3.2-4.5)
[2020-09-23 12:00] LABS: POTASSIUM 4.2 MMOL/L (3.6-5.0)
[2020-09-23 12:01] LABS: CALCIUM 6.8 MG/DL (8.5-10.1)
[2020-09-23 12:02] LABS: TOTAL PROTEIN 4.5 GM/DL (6.4-8.2)
[2020-09-23 12:03] LABS: BASOPHILS % (AUTO) 0 % (0-10); EOSINOPHILS % (AUTO) 0 % (0-10); HEMATOCRIT 27 % (35-52); HEMOGLOBIN 8.5 g/dL (11.5-16.0); LYMPHOCYTES # (AUTO) 1.3 10^3/uL (1.0-4.0); LYMPHOCYTES % (AUTO) 10 % (12-44); MEAN CORPUSCULAR HEMOGLOBIN 29 pg (25-34); MEAN CORPUSCULAR HGB CONC 32 g/dL (32-36); MEAN CORPUSCULAR VOLUME 90 fL (80-99); MEAN PLATELET VOLUME 10.9 fL (9.0-12.2); MONOCYTES # (AUTO) 0.4 10^3/uL (0.0-1.0); MONOCYTES % (AUTO) 3 % (0-12); NEUTROPHILS # (AUTO) 10.5 10^3/uL (1.8-7.8); NEUTROPHILS % (AUTO) 86 % (42-75); PLATELET COUNT 179 10^3/uL (130-400); WHITE BLOOD COUNT 12.2 10^3/uL (4.3-11.0)
[2020-09-23 12:04] LABS: BILIRUBIN,TOTAL 0.2 MG/DL (0.1-1.0)
[2020-09-23 12:06] LABS: CREATININE SERUM 1.66 MG/DL (0.60-1.30)
--- NOTE | 2020-09-23 12:43 | NUR ---
Pt in ICU 12: Dr. Dodge approached this Extrusion Machine Operator and the RN, Flakita about arranging a family meeting. Since the family has reportedly been exposed to COVID, Dr. Dodge expressed interest in arranging a virtual meeting. The RN said she would communicate with Shamika Felix about setting this up. Dr. Dodge proposed 10:00a Wednesday, Sep 25. Team to follow up. This Extrusion Machine Operator was invited to attend, and recommended that a professional licensed esthetician be included on the call since the pt's mother (next of kin) is Palauan speaking. The pt's significant other continues to be involved in the pt's care, and interfamilial relationships are reported as amenable at this time. Staff shared that the pt's Aunt in [place] has been the point person for the family as she is bilingual.
[2020-09-23] MEDS ORDERED: LACTATED RINGERS 1,000 ML IV SCH ×2 (14:30→16:30)
--- NOTE | 2020-09-23 15:15 | NUR ---
CM/SS: Dog Day Care Attendant consult received relating to Family Communication. Pt remains sedated and on the vent at this time. Stitching Machine Setterjane Lloyd is also messaged about family meeting/communication. Tentatively they have indicated a meeting at 10:00am on Wednesday, September 25, 2020. Staff report pt's Aunt is bilingual and has been able to communicating with family. This worker will follow up.
--- NOTE | 2020-09-23 15:41 | NUR ---
Received dietary consult regarding's pt vent status. Would recommend the following TF: Pulmocare at rate of 15ml/hr with 25ml water flushes q4h for hydration status and to prevent tube from clogging. Will continue to follow and reassess as pt needs, intake, and status change. Balbina Hill MS RD LD [phone] (cell)
[2020-09-23] MEDS: LORazepam INJ 2 MG/ML (ATIVAN) VIAL IVP PRN (15:59)
--- NOTE | 2020-09-23 17:51 | NUR ---
SPOKE WITH PT FAMILY ABOUT HAVING A FAMILY MEETING VIA ZOOM/GOOGLE MEET. FAMILY AGREEABLE TO MEETING ON WED AROUND 10 AM.
[2020-09-24] VITALS (30 sets, daily range): BP systolic 96–157; BP diastolic 55–89
[2020-09-24] MEDS: inSUlin ASPART (NovoLOG) 1 UNIT/0.01 ML (CHARGE PER UNIT) SQ SCH ×4 (00:30→20:02)
[2020-09-24] MEDS: fentaNYL DRIP PRE-MIX 250 ML IV SCH ×5 (00:30→21:51)
[2020-09-24] MEDS: PROPOFOL DRIP (ICU) 100 ML IV SCH ×6 (00:30→23:00)
[2020-09-24] MEDS: RT-ALBUTEROL INHALER HFA (VENTOLIN HFA) 18 GM IH SCH ×6 (02:26→22:37)
[2020-09-24] MEDS: NOREPINEPHRINE 4 MG/250 ML 250 ML IV SCH ×3 (03:15→21:09)
[2020-09-24] MEDS: D5 LR IV SOLUTION 1,000 ML IV SCH ×3 (03:36→21:51)
[2020-09-24 03:42] LABS: BASOPHILS % (AUTO) 0 % (0-10); EOSINOPHILS # (AUTO) 0.1 10^3/uL (0.0-0.3); EOSINOPHILS % (AUTO) 1 % (0-10); HEMATOCRIT 24 % (35-52); HEMOGLOBIN 7.9 g/dL (11.5-16.0); LYMPHOCYTES % (AUTO) 16 % (12-44); MEAN CORPUSCULAR HEMOGLOBIN 30 pg (25-34); MEAN CORPUSCULAR HGB CONC 33 g/dL (32-36); MEAN CORPUSCULAR VOLUME 91 fL (80-99); MEAN PLATELET VOLUME 10.9 fL (9.0-12.2); MONOCYTES # (AUTO) 0.7 10^3/uL (0.0-1.0); MONOCYTES % (AUTO) 6 % (0-12); NEUTROPHILS # (AUTO) 9.2 10^3/uL (1.8-7.8); NEUTROPHILS % (AUTO) 76 % (42-75); PLATELET COUNT 200 10^3/uL (130-400); WHITE BLOOD COUNT 12.2 10^3/uL (4.3-11.0)
[2020-09-24 03:52] LABS: ABG BASE EXCESS -4.1 MMOL/L (-2.5-2.5); ABG OXYGEN SATURATION 97 % (94-100); ABG PCO2 41 MMHG (35-45); ABG PO2 94 MMHG (79-93); ABG TCO2 22.1 MMOL/L (21.0-31.0)
[2020-09-24 03:57] LABS: ALLENS TEST ARTLINE; INSPIRED O2 30; PATIENT TEMP 37.1; VENTILATOR YES
[2020-09-24 03:58] LABS: ABG PH 7.33 (7.37-7.43)
[2020-09-24 04:02] LABS: CALCIUM 6.8 MG/DL (8.5-10.1); CREATININE SERUM 1.55 MG/DL (0.60-1.30); MAGNESIUM 3.5 MG/DL (1.6-2.4); PHOSPHORUS 4.3 MG/DL (2.3-4.7); POTASSIUM 3.7 MMOL/L (3.6-5.0)
[2020-09-24] MEDS: MAGNESIUM 1 GM/100 ML IVPB 100 ML IV SCH (04:11)
[2020-09-24] MEDS: POTASSIUM CL 10MEQ/50ML IVPB 50 ML IV SCH (04:11)
[2020-09-24] MEDS: KCL 20 MEQ TAB (K-DUR) PO SCH (04:12)
[2020-09-24] MEDS ORDERED: FLUCONAZOLE 200 MG/100 ML 100 ML IV ONE ×2 (05:30→05:55)
[2020-09-24] MEDS ORDERED: SODIUM BICARB 8.4% 50 MEQ/50 ML VIAL IV ONE (05:30)
--- NOTE | 2020-09-24 05:32 | Pulmonary Progress Note ---
Subjective Time Seen by a Provider: 05:28 Subjective/Events-last exam Sedated on vent. Sepsis Event Evaluation Height, Weight, BMI Height: '" Weight: lbs. oz. kg; 39.60 BMI Method: Focused Exam Lactate Level 09/21/20 18:20: Lactic Acid Level 1.72 Exam Exam Vital Signs Date Time Temp Pulse Resp B/P (MAP) Pulse Ox O2 Delivery O2 Flow Rate FiO2 09/24/20 04:46 37.1 Mechanical Ventilator 30.00 09/24/20 04:37 120/61 09/24/20 02:26 72 22 97 35 09/24/20 01:00 78 09/24/20 00:30 105 09/24/20 00:11 37.1 Mechanical Ventilator 30.00 09/23/20 22:37 69 22 94 30 09/23/20 20:46 67 09/23/20 20:35 95 Mechanical Ventilator 30 09/23/20 19:08 66 22 96 30 09/23/20 19:00 68 09/23/20 17:48 30.00 09/23/20 16:21 63 139/86 09/23/20 16:00 36.5 64 22 128/86 (100) 95 Mechanical Ventilator 40.00 09/23/20 15:00 36.4 83 28 152/89 (110) 92 Mechanical Ventilator 40.00 09/23/20 14:32 64 24 96 40 09/23/20 14:19 36.4 63 96 09/23/20 14:00 36.4 60 22 128/73 (91) 97 Mechanical Ventilator 40.00 09/23/20 13:44 40.00 09/23/20 13:00 36.4 55 22 123/74 (90) 96 Mechanical Ventilator 35.00 09/23/20 12:54 55 09/23/20 12:00 36.4 60 22 112/78 (89) 93 Mechanical Ventilator 35.00 09/23/20 11:27 56 117/71 09/23/20 11:00 36.4 60 21 123/72 (89) 95 Mechanical Ventilator 35.00 09/23/20 10:12 57 22 97 30 09/23/20 10:00 36.5 57 21 115/79 (91) 97 Mechanical Ventilator 35.00 09/23/20 09:06 36.5 56 22 128/81 96 Mechanical Ventilator 35 09/23/20 09:04 Mechanical Ventilator 35.00 09/23/20 09:00 36.6 56 22 107/75 (86) 96 Mechanical Ventilator 40.00 09/23/20 08:03 Mechanical Ventilator 40.00 09/23/20 08:00 36.5 77 15 168/95 (119) 100 Mechanical Ventilator 25.00 09/23/20 08:00 Mechanical Ventilator 30 09/23/20 07:03 60 22 94 25 09/23/20 07:00 36.3 57 25 115/77 (90) 96 Mechanical Ventilator 25.00 09/23/20 06:57 36.3 58 26 130/77 96 Mechanical Ventilator 25 09/23/20 06:42 36.3 60 26 121/71 95 Mechanical Ventilator 25 09/23/20 06:39 61 09/23/20 06:06 120/70 09/23/20 06:00 36.2 60 25 127/75 (92) 96 Mechanical Ventilator 25.00 I & O 09/24/20 07:00 Intake Total 2030 ml Output Total 425 ml Balance 1605 ml Height & Weight Height: '" Weight: lbs. oz. kg; 39.60 BMI Method: General Appearance: Other (very ill, sedated and on vent) HEENT: PERRL/EOMI, Moist Mucous Membranes Neck: Normal Inspection, Supple Respiratory: Rhonci; No Wheezing; Other (sedated on vent) Cardiovascular: Regular Rate, Rhythm, No Murmur Capillary Refill: Less Than 3 Seconds Gastrointestinal: non tender, soft Extremity: Normal Capillary Refill, No Calf Tenderness, No Pedal Edema Neurologic/Psychiatric: Other (sedated, appears comfortable) Skin: Other (incision site clean and dry, mayra in place) Results Lab Laboratory Tests 09/23/20 03:20 09/23/20 11:30 09/24/20 03:10 Assessment/Plan Assessment/Plan Acute Respiratory failure with ARDS with presumptive COVID secondary to significant other testing positive -EICU doctor managed pt through the night -Fi02 has improved to 30% - PEEP to 8 decrease RR to 22. -D/C proning -change propofol to Versed gtt -Pt's COVID is negative however Pt's significant other is COVID positive. -Will continue to treat pt as presumptive COVID. -Repeat COVID testing today. -Discussed with anesthesia and he states pt did not aspirate during surgery. -Continue Remdesivir, and s/p 1 unit of CVP -Decadron 6mg daily -Will give ativan pushes -COVID PCR pending -Influenza negative -Respiratory viral panel - pending PNA with sepsis- presumptive COVID- sputum shows candidiasis -Retest for COVID -Start Diflucan -Justice cultures -Continue Zosyn azithromycin -MRSA pending -Currently off Levophed Anemia -WIll give 1 unit of PRBC typed and crossed. -Monitor Acute renal failure with metabolic acidosis -CR improved -Give 2 amps of bicarb -IVF - Will keep at 125 -Monitor Metabolic acidosis -Improving JERMAIN WALSH DO Sep 24, 2020 05:32
[2020-09-24] MEDS ORDERED: SODIUM BICARB 8.4% 50 MEQ/50 ML VIAL ONE (05:41)
[2020-09-24] MEDS: PIPERACILLIN/TAZOBACTAM (BULK) 4.5 GM in NS (IVPB) 100 ML IV SCH ×3 (06:02→21:52)
[2020-09-24] MEDS: LORazepam INJ 2 MG/ML (ATIVAN) VIAL IVP PRN (06:25)
--- NOTE | 2020-09-24 06:45 | NUR ---
CONTACTED DR. WALSH ABOUT HIGH PEAK PRESSURES. ORDERED JOHN PUSH OF 50MG X1 AND 5MG VERSED PUSH X1. PEAK PRESSURES IMPROVED AFTER PUSHES.
[2020-09-24] MEDS ORDERED: MIDAZOLAM 5 MG/5 ML (VERSED) VIAL IVP ONE (07:00)
[2020-09-24] MEDS ORDERED: ROCURONIUM 10 MG/ML 5 ML SYRINGE IV ONE ×2 (07:00→08:03)
[2020-09-24] MEDS: MIDAZOLAM INJECTION FOR DRIPS 50 MG in NS (IVPB) 90 ML IV SCH ×2 (07:47→17:33)
[2020-09-24] MEDS: ENOXAPARIN 40 MG/0.4 ML (LOVENOX) SYR SC SCH (07:54)
[2020-09-24] MEDS: REMDESIVIR INJ 100 MG in NS (IVPB) 230 ML IV SCH (07:54)
[2020-09-24] MEDS: guaiFENesin/DM (ROBITUSSIN DM) 10 ML UDC NG SCH ×2 (07:55→21:52)
[2020-09-24] MEDS: DOCUSATE SODIUM 10 MG/ML 10 ML UDC (COLACE) PO SCH ×2 (07:55→21:09)
[2020-09-24] MEDS: PANTOPRAZOLE 40 MG (PROTONIX) VIAL IV SCH (07:55)
[2020-09-24] MEDS ORDERED: MIDAZOLAM 5 MG/5 ML (VERSED) VIAL IJ ONE (08:03)
--- NOTE | 2020-09-24 08:07 | Physical Therapy Progress Note ---
Therapy Progress Note Patient remains sedated and intubated. PT will continue to monitor patient status and initiate treatment when patient is medically stable and able to actively participate with skilled therapy. YINA GARCIA PT Sep 24, 2020 08:07
--- NOTE | 2020-09-24 08:09 | Diagnostic Imaging Report ---
Portable erect AP chest at 316 hours. INDICATION: Respiratory distress. FINDINGS: The appearance of the chest has improved since the prior exam of 09/23/2020 as the left lung does seem much better aerated, particularly the left upper lobe. There are still alveolar/interstitial infiltrates throughout the left lung, however. The atelectasis/infiltrate involving the right lung noted previously has also improved but to a lesser extent. The heart is stable in size. The mediastinum is not widened. The osseous structures are intact. The supportive tubes and lines remain in good position. IMPRESSION: The appearance of the chest has improved since the prior exam as both lungs do seem better aerated, particularly the left lung. A follow-up study would be recommended for continued evaluation. Dictated by: Dictated on workstation # [id number]
--- NOTE | 2020-09-24 09:48 | Occ Therapy Progress Note ---
Therapy Progress Note Will continue to monitor pt. to begin skilled OT treatment when medically stable. [id number] SHERRIE KING OT Sep 24, 2020 09:48
--- NOTE | 2020-09-24 09:57 | NUR ---
SPOKE VIA TELEPHONE WITH PATIENTS AUNT ERIKA AND PTS MOTHER AFTER PASSWORD WAS VERIFIED. ALL QUESTIONS ANSWERED UNTIL NO FURTHER QUESTIONS ASKED. WILL FACETIME MOTHER BETWEEN [phone].
[2020-09-24] MEDS: AZITHROMYCIN INJECTION 250 MG in NS (IVPB) 250 ML IV SCH (10:14)
--- NOTE | 2020-09-24 10:50 | Physical Therapy Progress Note ---
Therapy Progress Note PROM B U/LE available ranges; assisted nursing with repositioning. Nurse still with patient as this therapist exited the room. AMY ARROYO PT Sep 24, 2020 10:50
--- NOTE | 2020-09-24 12:39 | NUR ---
PER VERBAL ORDER FROM DR WALSH, PT SEDATION HELD. AFTER 25 MINUTES PT BEGAN TO AWAKEN. SHE FOLLOWED ALL COMMANDS AND OPENED HER EYES. PT DID HAVE RR INCREASE TO 30-35/MIN WITH INCREASE USE OF ABDOMINAL MUSCLES WHILE SEDATION OFF. OXYGEN SATURATION 89-90% ON 30% FI02. INCREASED WITH 2 MINUTES OF 100% FI02. PT SEDATION MEDICATIONS RESUMED AND DR WALSH NOTIFIED OF HOW PATIENT TOLERATED SEDATION VACATION. FAMILY FACETIMED WHILE THIS RN IN ROOM.
--- NOTE | 2020-09-24 14:26 | NUR ---
Discussed with Renate HUNTER about TF. Renate states pt receiving Pulmocare at 15ml/hr with flushes of 25ml water q4h. Would recommend continuation at current rate at this time. Will continue to follow and reassess as pt needs, intake, and status change. Balbina Hill, MS RD LD [phone] (cell)
[2020-09-24] MEDS ORDERED: DexMEDEtomidine PRE MIX 100 ML IV SCH (17:45)
--- NOTE | 2020-09-24 19:59 | NUR ---
SPOKE WITH PATIENTS FAMILY OVER FACETIME. UPDATED ON CONDITION AND ANSWERED ALL QUESTIONS UNTIL NO FURTHER QUESTIONS VOICED. CONFIRMED WITH FAMILY THAT FACETIME WOULD BE THE EASIES MODE OF COMMUNICATION FOR THEM FOR FAMILY TALK WITH DR WALSH TOMORROW MORNING AT 10AM. FAMILY ADVISED THAT EVERYONE THEY WANTED TO BE INVOLVED WOULD ALREADY BE THERE. ALSO ADVISED FAMILY THAT A MEDICINE WORKER WOULD BE ON THE CALL TO CLEARLY COMMUNICATE DURING TALK. FAMILY AGREEABLE TO THIS. FACETIME TO BE CALLED TO MOTHERS PHONE NUMBER LISTED ON CHART.
[2020-09-25] VITALS (29 sets, daily range): BP systolic 124–197; BP diastolic 69–94
[2020-09-25] MEDS: inSUlin ASPART (NovoLOG) 1 UNIT/0.01 ML (CHARGE PER UNIT) SQ SCH ×5 (00:26→23:52)
[2020-09-25] MEDS: NOREPINEPHRINE 4 MG/250 ML 250 ML IV SCH (02:38)
[2020-09-25] MEDS: RT-ALBUTEROL INHALER HFA (VENTOLIN HFA) 18 GM IH SCH ×6 (02:38→21:59)
[2020-09-25 03:16] LABS: ABG BASE EXCESS -2.6 MMOL/L (-2.5-2.5); ABG OXYGEN SATURATION 99 % (94-100); ABG PCO2 44 MMHG (35-45); ABG PO2 122 MMHG (79-93); ABG TCO2 23.8 MMOL/L (21.0-31.0); BASOPHILS % (AUTO) 0 % (0-10); EOSINOPHILS # (AUTO) 0.3 10^3/uL (0.0-0.3); EOSINOPHILS % (AUTO) 4 % (0-10); HEMATOCRIT 26 % (35-52); HEMOGLOBIN 8.5 g/dL (11.5-16.0); LYMPHOCYTES # (AUTO) 1.7 10^3/uL (1.0-4.0); LYMPHOCYTES % (AUTO) 21 % (12-44); MEAN CORPUSCULAR HEMOGLOBIN 30 pg (25-34); MEAN CORPUSCULAR HGB CONC 32 g/dL (32-36); MEAN CORPUSCULAR VOLUME 92 fL (80-99); MEAN PLATELET VOLUME 10.2 fL (9.0-12.2); MONOCYTES # (AUTO) 0.7 10^3/uL (0.0-1.0); MONOCYTES % (AUTO) 9 % (0-12); NEUTROPHILS % (AUTO) 62 % (42-75); PLATELET COUNT 215 10^3/uL (130-400); WHITE BLOOD COUNT 8.1 10^3/uL (4.3-11.0)
[2020-09-25 03:22] LABS: ALLENS TEST POSITIVE; INSPIRED O2 30; PATIENT TEMP 37.2; VENTILATOR YES
[2020-09-25 03:23] LABS: ABG PH 7.33 (7.37-7.43)
[2020-09-25 03:28] LABS: POTASSIUM 3.9 MMOL/L (3.6-5.0)
[2020-09-25 03:29] LABS: CALCIUM 7.1 MG/DL (8.5-10.1)
[2020-09-25] MEDS: MIDAZOLAM INJECTION FOR DRIPS 50 MG in NS (IVPB) 90 ML IV SCH (03:33)
[2020-09-25 03:34] LABS: CREATININE SERUM 1.29 MG/DL (0.60-1.30)
[2020-09-25 03:36] LABS: MAGNESIUM 2.2 MG/DL (1.6-2.4)
--- NOTE | 2020-09-25 03:59 | Pulmonary Progress Note ---
Subjective Time Seen by a Provider: 03:55 Subjective/Events-last exam Pt is sedated on vent. Sepsis Event Evaluation Height, Weight, BMI Height: '" Weight: lbs. oz. kg; 39.60 BMI Method: Exam Exam Vital Signs Date Time Temp Pulse Resp B/P (MAP) Pulse Ox O2 Delivery O2 Flow Rate FiO2 09/25/20 03:33 64 09/25/20 02:38 59 20 96 30 09/25/20 01:00 66 09/25/20 00:00 36.8 09/24/20 23:02 Mechanical Ventilator 30.00 09/24/20 23:00 59 09/24/20 22:38 70 22 90 40 09/24/20 22:03 Mechanical Ventilator 25.00 09/24/20 21:59 36.8 Mechanical Ventilator 30.00 09/24/20 21:45 98 Mechanical Ventilator 30 09/24/20 19:00 70 09/24/20 19:00 Mechanical Ventilator 30.00 09/24/20 18:32 62 23 98 30 09/24/20 18:00 64 21 151/87 (108) 96 Mechanical Ventilator 30.00 09/24/20 17:33 63 22 145/82 09/24/20 17:33 65 144/85 09/24/20 17:00 69 22 148/83 (104) 92 Mechanical Ventilator 30.00 09/24/20 16:00 62 22 157/89 (111) 97 Mechanical Ventilator 30.00 09/24/20 15:00 63 22 145/82 (103) 98 Mechanical Ventilator 30.00 09/24/20 14:00 67 21 140/79 (99) 96 Mechanical Ventilator 30.00 09/24/20 13:33 68 22 97 30 09/24/20 13:00 73 21 126/75 (92) 95 Mechanical Ventilator 30.00 09/24/20 12:54 75 09/24/20 12:47 75 124/72 09/24/20 12:00 72 12 137/87 (104) 98 Mechanical Ventilator 30.00 09/24/20 11:00 75 22 147/83 (104) 98 Mechanical Ventilator 30.00 09/24/20 10:15 74 22 95 30 09/24/20 10:00 73 21 115/64 (81) 95 Mechanical Ventilator 30.00 09/24/20 09:00 75 21 113/56 (75) 96 Mechanical Ventilator 30.00 09/24/20 08:30 37.1 09/24/20 08:30 96 Mechanical Ventilator 30 09/24/20 08:00 36.7 75 18 116/55 (75) 98 Mechanical Ventilator 30.00 09/24/20 07:55 74 115/65 09/24/20 07:47 74 22 115/65 09/24/20 07:00 37.0 82 21 112/55 (74) 97 Mechanical Ventilator 30.00 09/24/20 06:49 82 09/24/20 06:43 76 26 93 30 09/24/20 06:00 37.0 70 21 113/61 (78) 96 Mechanical Ventilator 30.00 09/24/20 05:00 37.1 73 18 111/57 (75) 95 Mechanical Ventilator 30.00 09/24/20 04:46 37.1 Mechanical Ventilator 30.00 09/24/20 04:37 120/61 09/24/20 04:00 37.1 77 23 120/61 (80) 97 Mechanical Ventilator 30.00 I & O 09/25/20 07:00 Intake Total 2995 ml Output Total 2150 ml Balance 845 ml Height & Weight Height: '" Weight: lbs. oz. kg; 39.60 BMI Method: General Appearance: Other (very ill, sedated and on vent) HEENT: PERRL/EOMI, Moist Mucous Membranes Neck: Normal Inspection, Supple Respiratory: Rhonci; No Wheezing; Other (sedated on vent) Cardiovascular: Regular Rate, Rhythm, No Murmur Capillary Refill: Less Than 3 Seconds Gastrointestinal: non tender, soft Extremity: Normal Capillary Refill, No Calf Tenderness, Pedal Edema Neurologic/Psychiatric: Other (sedated, appears comfortable) Skin: Normal Color, Warm/Dry, Other (incision site clean and dry, mayra in place) Results Lab Laboratory Tests 09/23/20 11:30 09/24/20 03:10 09/25/20 03:05 Assessment/Plan Assessment/Plan Acute Respiratory failure with ARDS with presumptive COVID secondary to significant other testing positive -EICU doctor managed pt through the night -PT is doing better respiratory mireles. Will decrease PEEP to 5. -CXR - reviewed and shows improvement. -Will discuss with family today via Facetime. PT has improved significantly. She is only requiring 30% oxygen. -Will D/C sedation and attempt to wean vent. -Fi02 has improved to 30% - PEEP to 5 -D/C proning -Repeat COVID is negative. D/C Remdesivir -Decadron 6mg daily- Will d/c pt is doing much better respiratory mireles. -Influenza negative -Respiratory viral panel - pending PNA with sepsis- presumptive COVID- sputum shows candidiasis -Retest for COVID is negative - Diflucan -Justice cultures - reviewed -Continue Zosyn, and Diflucan s/p azithromycin -MRSA pending -Currently off Levophed Anemia -s/p 1 unit of PRBC typed and crossed. -Monitor Acute renal failure with metabolic acidosis -CR improved -IVF - Will keep at 125 -Monitor Metabolic acidosis -Improving JERMAIN WALSH DO Sep 25, 2020 03:58
[2020-09-25] MEDS ORDERED: FUROSEMIDE 40 MG/4 ML INJ (LASIX) IVP ONE (04:00)
[2020-09-25] MEDS: MAGNESIUM 1 GM/100 ML IVPB 100 ML IV SCH (04:49)
[2020-09-25] MEDS: POTASSIUM CL 10MEQ/50ML IVPB 50 ML IV SCH ×4 (04:49→23:46)
[2020-09-25] MEDS: KCL 20 MEQ TAB (K-DUR) PO SCH (04:50)
[2020-09-25] MEDS: meTOprolol TARTRATE 25 MG (LOPRESSOR) TABLET PO SCH (06:48)
[2020-09-25] MEDS: PIPERACILLIN/TAZOBACTAM (BULK) 4.5 GM in NS (IVPB) 100 ML IV SCH ×3 (06:48→21:34)
[2020-09-25] MEDS: DOCUSATE SODIUM 10 MG/ML 10 ML UDC (COLACE) PO SCH ×2 (07:34→20:04)
--- NOTE | 2020-09-25 08:02 | Physical Therapy Progress Note ---
Therapy Progress Note Patient is still ventilated but appears to be coming off of sedation. Will monitor. SHAILESH TOPETE PT Sep 25, 2020 08:02
[2020-09-25] MEDS: ENOXAPARIN 40 MG/0.4 ML (LOVENOX) SYR SC SCH (08:04)
[2020-09-25] MEDS: guaiFENesin/DM (ROBITUSSIN DM) 10 ML UDC NG SCH (08:04)
[2020-09-25] MEDS: FLUCONAZOLE 200 MG/100 ML 50 ML, EMPTY IV BAG (PVC) 1 EA IV SCH ×2 (08:05)
[2020-09-25] MEDS: PANTOPRAZOLE 40 MG (PROTONIX) VIAL IV SCH (08:05)
--- NOTE | 2020-09-25 08:34 | Occ Therapy Progress Note ---
Therapy Progress Note Will continue to monitor pt. and assess when medically ready. 0833 SHERRIE KING OT Sep 25, 2020 08:34
[2020-09-25] MEDS: APAP 325 MG/10.15 ML LIQ (TYLENOL) UDC PO PRN (09:46)
--- NOTE | 2020-09-25 10:00 | NUR ---
Attended face time meeting with Dr. Dodge, and RN Asuncion, pt's significant other, pt's mother, and pt's aunt. Professional Extracorporeal Technician also on the line. Pt's mother requested transfer, Dr. Dodge offered to contact and [facility] per family's request. Family was insistent upon visiting the pt. The RN continued to reiterate visitation policy for their safety. Team face-timed the family with the pt. Stated they could not obtain medical records. This calender machine operator helper met with Karime in Medical records, and she explained that if the pt was able to give non-verbal consent to release information, that should be attempted first. Karime instructed that if the pt could not physically do this, the pt's significant other would need to request the documents and proceed from there. This Rental Coordinator provided the family with contacts to Medical Records dept and offered emotional support through empathy and kind words.
--- NOTE | 2020-09-25 11:38 | Pulmonary Progress Note ---
Standard Progress Note Progress Notes Date Seen by Provider: Sep 25, 2020 Time Seen by Provider: 10:00 Discussed with family during family meeting current medical condition and plan of care. Chemistry Technical Officer was on phone during conversation. Bedside RN, and [place] Gabino were also present. We answered all questions to the best of our ability. We also took IPad into patients room so family could see patient. We also introduced family to EICU who is helping to manage patient. Assessment & Plan Acute Respiratory failure with ARDS with presumptive COVID secondary to significant other testing positive -EICU doctor managed pt through the night -PT is doing better respiratory mireles. Will decrease PEEP to 5. -CXR - reviewed and shows improvement. -Will discuss with family today via Facetime. PT has improved significantly. She is only requiring 30% oxygen. -Will D/C sedation and attempt to wean vent. -Fi02 has improved to 30% - PEEP to 5 -D/C proning -Repeat COVID is negative. D/C Remdesivir -Decadron 6mg daily- Will d/c pt is doing much better respiratory mireles. -Influenza negative -Respiratory viral panel - pending PNA with sepsis- presumptive COVID- sputum shows candidiasis -Retest for COVID is negative - Diflucan -Justice cultures - reviewed -Continue Zosyn, and Diflucan s/p azithromycin -MRSA pending -Currently off Levophed Anemia -s/p 1 unit of PRBC typed and crossed. -Monitor Acute renal failure with metabolic acidosis -CR improved -IVF - Will keep at 125 -Monitor Metabolic acidosis -Improving Critical Care: Critically Ill Patient Time spent with patient (mins): 60 JERMAIN WALSH DO Sep 25, 2020 11:38
[2020-09-25] MEDS ORDERED: LORazepam INJ 2 MG/ML (ATIVAN) VIAL ONE (12:09)
[2020-09-25 12:36] LABS: ALBUMIN 2.6 GM/DL (3.2-4.5); POTASSIUM 3.4 MMOL/L (3.6-5.0)
[2020-09-25 12:37] LABS: CALCIUM 7.6 MG/DL (8.5-10.1)
[2020-09-25 12:39] LABS: TOTAL PROTEIN 5.3 GM/DL (6.4-8.2)
[2020-09-25 12:40] LABS: BILIRUBIN,TOTAL 0.3 MG/DL (0.1-1.0)
[2020-09-25 12:42] LABS: CREATININE SERUM 1.47 MG/DL (0.60-1.30)
[2020-09-25 13:42] LABS: ABG BASE EXCESS -0.2 MMOL/L (-2.5-2.5); ABG OXYGEN SATURATION 98 % (94-100); ABG PCO2 38 MMHG (35-45); ABG PH 7.42 (7.37-7.43); ABG PO2 121 MMHG (79-93); ABG TCO2 24.5 MMOL/L (21.0-31.0)
[2020-09-25 13:43] LABS: ALLENS TEST ART LINE; INSPIRED O2 30%
[2020-09-25 13:44] LABS: PATIENT TEMP 38.2; VENTILATOR YES
--- NOTE | 2020-09-25 16:39 | NUR ---
This RN facetimed pt family. This RN updated family on pt status as of now. Pt on pressure support on vent and is tolerating weaning. All sedation medication has been off during this RN shift. Pt is following commands, sleepy but easy to arouse. Will continue to monitor pt.
--- NOTE | 2020-09-25 18:03 | NUR ---
Received order from E-ICU to extubate pt to vapotherm. Pt extubated at 1734, restraints removed. Pt on vapotherm at 30L 50% and tolerating extubation. This RN facetimed family to inform of extubation. Pt able to speak with family.
[2020-09-25] MEDS ORDERED: morphine INJ 10 MG/ML 1ML (SYR OR VIAL) IVP STA (19:28)
[2020-09-25] MEDS ORDERED: morphine INJ 4 MG/ML 1 ML (VIAL/SYRINGE) ONE (19:29)
[2020-09-25] MEDS ORDERED: ACETAMINOPHEN 650 MG SUPP (TYLENOL) PR ONE (19:45)
--- NOTE | 2020-09-25 20:13 | NUR ---
Pt has temp of 38.2, teleICU notified of need for suppository d/t pt not following commands enough to swallow po tylenol. Orders received.
[2020-09-25 20:35] LABS: BASOPHILS % (AUTO) 0 % (0-10); EOSINOPHILS % (AUTO) 0 % (0-10); HEMATOCRIT 26 % (35-52); HEMOGLOBIN 8.3 g/dL (11.5-16.0); LYMPHOCYTES # (AUTO) 2.2 10^3/uL (1.0-4.0); LYMPHOCYTES % (AUTO) 21 % (12-44); MEAN CORPUSCULAR HEMOGLOBIN 29 pg (25-34); MEAN CORPUSCULAR HGB CONC 32 g/dL (32-36); MEAN CORPUSCULAR VOLUME 91 fL (80-99); MONOCYTES # (AUTO) 1.1 10^3/uL (0.0-1.0); MONOCYTES % (AUTO) 11 % (0-12); NEUTROPHILS # (AUTO) 6.4 10^3/uL (1.8-7.8); NEUTROPHILS % (AUTO) 63 % (42-75); PLATELET COUNT 251 10^3/uL (130-400); WHITE BLOOD COUNT 10.2 10^3/uL (4.3-11.0)
[2020-09-25 21:00] LABS: ALBUMIN 2.4 GM/DL (3.2-4.5); BILIRUBIN,TOTAL 0.3 MG/DL (0.1-1.0); CALCIUM 7.2 MG/DL (8.5-10.1); CREATININE SERUM 1.46 MG/DL (0.60-1.30)
[2020-09-25 21:05] LABS: ANISOCYTOSIS SLIGHT; BAND NEUTROPHILS 3 %; BASOPHILS % (MANUAL) 0 %; EOSINOPHILS % (MANUAL) 0 %; HYPOCHROMASIA SLIGHT; LYMPHOCYTES % (MANUAL) 16 %; METAMYELOCYTES % 1 %; MONOCYTES % (MANUAL) 4 %; MYELOCYTES % 1 %; NEUTROPHILS % (MANUAL) 74 %; POLYCHROMASIA SLIGHT; REACTIVE LYMPHOCYTES 1 %
[2020-09-25 21:06] LABS: ROULEAUX SLIGHT; STOMATOCYTES SLIGHT; TOXIC GRANULATION/VACUOLAZATIO 1+
[2020-09-25] MEDS ORDERED: DEXTROSE 50% 50 ML (IMS) SYR ONE ×2 (21:28→23:54)
[2020-09-25] MEDS ORDERED: DEXTROSE 50% 50 ML (IMS) SYR IV ONE (21:30)
[2020-09-26] VITALS (25 sets, daily range): BP systolic 128–192; BP diastolic 67–94
[2020-09-26] MEDS ORDERED: DEXTROSE 50% 50 ML (IMS) SYR IV ONE
[2020-09-26] MEDS ORDERED: meTOprolol 5 MG/5 ML (LOPRESSOR) VIAL IV ONE
--- NOTE | 2020-09-26 00:15 | NUR ---
Pt remains unable to take PO meds, teleICU contacted for one-time order of lopressor IV d/t being unable to take 2100 PO dose. Orders received.
[2020-09-26] MEDS: guaiFENesin/DM (ROBITUSSIN DM) 10 ML UDC NG SCH ×3 (00:25→20:47)
[2020-09-26] MEDS: meTOprolol TARTRATE 25 MG (LOPRESSOR) TABLET PO SCH ×3 (00:26→21:04)
[2020-09-26] MEDS: POTASSIUM CL 10MEQ/50ML IVPB 50 ML IV SCH ×6 (00:33→04:49)
[2020-09-26] MEDS ORDERED: D5 NS 1000 ML IV SOLUTION 1,000 ML IV SCH (02:15)
[2020-09-26] MEDS: RT-ALBUTEROL INHALER HFA (VENTOLIN HFA) 18 GM IH SCH ×5 (02:19→19:08)
[2020-09-26 02:22] LABS: BASOPHILS % (AUTO) 0 % (0-10); EOSINOPHILS # (AUTO) 0.2 10^3/uL (0.0-0.3); EOSINOPHILS % (AUTO) 2 % (0-10); HEMATOCRIT 26 % (35-52); HEMOGLOBIN 8.2 g/dL (11.5-16.0); LYMPHOCYTES # (AUTO) 2.9 10^3/uL (1.0-4.0); LYMPHOCYTES % (AUTO) 28 % (12-44); MEAN CORPUSCULAR HEMOGLOBIN 29 pg (25-34); MEAN CORPUSCULAR HGB CONC 32 g/dL (32-36); MEAN CORPUSCULAR VOLUME 90 fL (80-99); MEAN PLATELET VOLUME 9.8 fL (9.0-12.2); MONOCYTES % (AUTO) 10 % (0-12); NEUTROPHILS # (AUTO) 5.6 10^3/uL (1.8-7.8); NEUTROPHILS % (AUTO) 55 % (42-75); PLATELET COUNT 262 10^3/uL (130-400); WHITE BLOOD COUNT 10.3 10^3/uL (4.3-11.0)
[2020-09-26 02:23] LABS: ABG BASE EXCESS 0.2 MMOL/L (-2.5-2.5); ABG OXYGEN SATURATION 95 % (94-100); ABG PCO2 35 MMHG (35-45); ABG PH 7.45 (7.37-7.43); ABG PO2 79 MMHG (79-93); ABG TCO2 24.7 MMOL/L (21.0-31.0)
[2020-09-26 02:32] LABS: POTASSIUM 3.1 MMOL/L (3.6-5.0)
[2020-09-26 02:33] LABS: CALCIUM 7.3 MG/DL (8.5-10.1)
[2020-09-26 02:38] LABS: CREATININE SERUM 1.39 MG/DL (0.60-1.30); PHOSPHORUS 2.9 MG/DL (2.3-4.7)
[2020-09-26 02:40] LABS: MAGNESIUM 2.1 MG/DL (1.6-2.4)
[2020-09-26 02:48] LABS: ALLENS TEST ARTLINE; INSPIRED O2 30%; PATIENT TEMP 37.8; VENTILATOR NO
[2020-09-26] MEDS: inSUlin ASPART (NovoLOG) 1 UNIT/0.01 ML (CHARGE PER UNIT) SQ SCH ×3 (04:17→19:12)
[2020-09-26] MEDS: MAGNESIUM 1 GM/100 ML IVPB 100 ML IV SCH (04:49)
[2020-09-26] MEDS: KCL 20 MEQ TAB (K-DUR) PO SCH (04:49)
--- NOTE | 2020-09-26 05:40 | Pulmonary Progress Note ---
Subjective Time Seen by a Provider: 05:34 Subjective/Events-last exam Pt is doing better. She was extubated yesterday afternoon Sepsis Event Evaluation Height, Weight, BMI Height: '" Weight: lbs. oz. kg; 39.60 BMI Method: Focused Exam Lactate Level 09/25/20 20:25: Lactic Acid Level 0.89 Exam Exam Vital Signs Date Time Temp Pulse Resp B/P (MAP) Pulse Ox O2 Delivery O2 Flow Rate FiO2 09/26/20 04:00 75 22 154/83 (106) 94 Vapotherm 25.00 30.00 09/26/20 03:00 79 26 155/84 (107) 95 Vapotherm 25.00 30.00 09/26/20 02:56 Vapotherm 25.00 30.00 09/26/20 02:19 93 Vapotherm 28.00 30 09/26/20 02:00 84 30 157/88 (111) 95 Vapotherm 28.00 30.00 09/26/20 01:00 93 29 146/80 (102) 92 Vapotherm 28.00 30.00 09/26/20 01:00 83 09/26/20 00:00 80 19 150/81 (104) 97 Vapotherm 28.00 30.00 09/25/20 23:53 Vapotherm 28.00 30.00 09/25/20 23:00 87 27 162/87 (112) 93 Vapotherm 28.00 35.00 09/25/20 22:00 93 Vapotherm 30.00 35 09/25/20 22:00 87 30 157/81 (106) 94 Vapotherm 28.00 35.00 09/25/20 21:00 Vapotherm 28.00 35 09/25/20 21:00 37.8 09/25/20 21:00 90 22 162/87 (112) 96 Vapotherm 28.00 35.00 09/25/20 20:20 Vapotherm 28.00 35.00 09/25/20 20:16 38.2 09/25/20 20:00 87 22 157/78 (104) 97 Vapotherm 30.00 40.00 09/25/20 19:48 38.2 09/25/20 19:00 86 24 151/80 (103) 97 Vapotherm 30.00 40.00 09/25/20 19:00 91 1111/20 18:06 Vapotherm 30.00 40.00 09/25/20 18:00 92 33 142/69 (93) 97 Vapotherm 30.00 50.00 09/25/20 17:36 97 Vapotherm 30.00 50 09/25/20 17:34 Vapotherm 30.00 50.00 09/25/20 17:00 89 25 153/81 (105) 97 Mechanical Ventilator 30.00 09/25/20 16:00 110 24 159/84 (109) 96 Mechanical Ventilator 30.00 09/25/20 15:00 98 18 158/84 (108) 96 Mechanical Ventilator 30.00 09/25/20 14:30 108 36 97 30 09/25/20 14:00 109 23 171/94 (119) 97 Mechanical Ventilator 30.00 09/25/20 13:40 38.2 09/25/20 13:00 105 29 170/92 (118) 95 Mechanical Ventilator 30.00 09/25/20 12:44 108 27 91 30 09/25/20 12:32 98 09/25/20 12:00 96 21 151/82 (105) 96 Mechanical Ventilator 30.00 09/25/20 11:00 97 24 157/81 (106) 95 Mechanical Ventilator 30.00 09/25/20 10:44 99 30 96 30 09/25/20 10:00 95 23 146/78 (100) 96 Mechanical Ventilator 30.00 09/25/20 09:46 38.0 09/25/20 09:00 93 20 139/75 (96) 96 Mechanical Ventilator 30.00 09/25/20 08:42 98 Mechanical Ventilator 30 09/25/20 08:03 37.9 09/25/20 08:00 99 23 164/84 (110) 96 Mechanical Ventilator 30.00 09/25/20 07:28 105 20 94 30 09/25/20 07:00 105 24 149/83 (105) 96 Mechanical Ventilator 30.00 09/25/20 06:43 114 09/25/20 06:00 107 23 197/79 (118) 94 Mechanical Ventilator 30.00 I & O 09/26/20 07:00 Intake Total 820 ml Output Total 5150 ml Balance -4330 ml Height & Weight Height: '" Weight: lbs. oz. kg; 39.60 BMI Method: General Appearance: Other (very ill, sedated and on vent) HEENT: PERRL/EOMI, Moist Mucous Membranes Neck: Normal Inspection, Supple Respiratory: Rhonci; No Wheezing; Other (sedated on vent) Cardiovascular: Regular Rate, Rhythm, No Murmur Capillary Refill: Less Than 3 Seconds Gastrointestinal: non tender, soft Extremity: Normal Capillary Refill, No Calf Tenderness, Pedal Edema Neurologic/Psychiatric: Other (sedated, appears comfortable) Skin: Normal Color, Warm/Dry, Other (incision site clean and dry, mayra in place) Lymphatic: No Adenopathy Results Lab Laboratory Tests 09/25/20 03:05 09/25/20 12:20 09/25/20 20:25 09/26/20 02:10 Assessment/Plan Assessment/Plan Acute Respiratory failure with ARDS with presumptive COVID secondary to significant other testing positive -EICU doctor managed pt through the night -CXR - reviewed and shows improvement. -Pt is now off vent and currently on Vapotherm. -Consult speech therapy for swallow eval -Fi02 has improved to 30% -D/C proning -Repeat COVID is negative. D/C Remdesivir -Decadron 6mg daily- Will d/c pt is doing much better respiratory mireles. -Influenza negative -Respiratory viral panel - pending PNA with sepsis- presumptive COVID- sputum shows candidiasis -Retest for COVID is negative - Diflucan -Justice cultures - reviewed -Continue Zosyn, and Diflucan s/p azithromycin -MRSA pending - off Levophed Persistent fever -Discussed with EICU doctor. Will order CT of chest, abdomen and pelvis without contrast secondary to renal failure. -D/C arterial line and culture tip -Obtain picc line and culture tip -Obtain BC x 3 Diarrhea -Check CDIFF toxin -Start Flagyl Hypernatremia with hypoglycemia -Change IVF to D5W Hypokalemia -Replace Anemia -s/p 1 unit of PRBC typed and crossed. -Monitor Acute renal failure with metabolic acidosis -CR improved -IVF - Will keep at 125 -Monitor Metabolic acidosis -Improving JERMAIN WALSH DO Sep 26, 2020 05:40
[2020-09-26] MEDS: PIPERACILLIN/TAZOBACTAM (BULK) 4.5 GM in NS (IVPB) 100 ML IV SCH ×3 (06:04→22:47)
[2020-09-26] MEDS: D5W 1000 ML IV SOLUTION 1,000 ML IV SCH ×2 (06:05→17:12)
[2020-09-26] MEDS ORDERED: hydrALAZINE (APESOLINE) 20 MG/ML VIAL IV PRN (07:00)
--- NOTE | 2020-09-26 08:20 | Diagnostic Imaging Report ---
INDICATION: Status post extubation and shortness of air. Correlation is made with a prior study from 09/24/2020. ET tube and NG tube have been removed. Right IJ line has tip overlying the SVC. There is increasing congestive changes noted with bilateral perihilar and bibasilar infiltrates. No effusion or pneumothorax is detected. IMPRESSION: Extubation chest demonstrating increasing congestive changes with bilateral infiltrates when compared with examination 2 days earlier. Dictated by: Dictated on workstation # [id number]
[2020-09-26] MEDS ORDERED: morphine INJ 4 MG/ML 1 ML (VIAL/SYRINGE) ONE (08:37)
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
[2020-09-26] MEDS: DOCUSATE SODIUM 10 MG/ML 10 ML UDC (COLACE) PO SCH ×2 (09:17→19:12)
--- NOTE | 2020-09-26 11:32 | Diagnostic Imaging Report ---
PROCEDURE: CT chest, abdomen, and pelvis without contrast. TECHNIQUE: Multiple contiguous axial images were obtained through the chest, abdomen, and pelvis without the use of intravenous contrast. Auto Exposure Controls were utilized during the CT exam to meet ALARA standards for radiation dose reduction. INDICATION: Fever. COMPARISON: Correlation is made with CT chest from 09/20/2020. FINDINGS: CT CHEST: No axillary lymphadenopathy is detected. Hilar and mediastinal evaluation is limited without intravenous contrast. No pericardial fluid is identified. There is a small right and trace left pleural effusion. Pulmonary parenchymal evaluation does show five-lobed airspace pulmonary infiltrates, consistent with either pneumonia or edema. There is some consolidation in the right lower lobe. CT ABDOMEN AND PELVIS: Liver and gallbladder are unremarkable. The pancreas and spleen are unremarkable. No adrenal mass is detected. No definite renal calculi are detected. There is no hydronephrosis. Aorta is nonaneurysmal. The small and large bowel loops appear to be normal in caliber. Bladder contains a Luna catheter. There is a small amount of free fluid in the lower abdomen and pelvis. No well-formed fluid collection is identified. No definite free air is identified. There is extensive subcutaneous edema throughout the chest, abdomen, and pelvis subcutaneous tissues, consistent with anasarca. IMPRESSION: 1. Anasarca. 2. Bilateral pleural effusions, right greater with diffuse bilateral airspace pulmonary infiltrates, consistent with pneumonia or pulmonary edema. There is also small amount of free fluid in the abdomen and pelvis. No well-formed fluid collection or abscess is detected. Dictated by: Dictated on workstation # [id number]
--- NOTE | 2020-09-26 12:18 | Physical Therapy Evaluation ---
PT Evaluation-General Medical Diagnosis Admission Date Sep 18, 2020 at 19:24 Medical Diagnosis: induction Onset Date: Sep 18, 2020 Therapy Diagnosis Therapy Diagnosis: generalized weakness/impaired mobility Precautions Precautions/Isolations: Droplet Isolation, Fall Prevention, Standard Precautions Referral Physician: Doeing Reason for Referral: Evaluation/Treatment Medical History Current History s/p emergent delivery/ due to elevated BP and distress per report. Reviewed History: Yes Prior Prior Level of Function SCALE: Activities may be completed with or without assistive devices. 6-Kzdihjvhtl-dbajpzs completes the activity by him/herself with no assistance from a helper. 5-Set-up or Clean-up Assistance-helper sets up or cleans up; patient completes activity. Mize assists only prior to or following the activity. 4-Supervision or Touching Assistance-helper provides verbal cues and/or touching/steadying and/or contact guard assistance as patient completes activity. Assistance may be provided throughout the activity or intermittently. 3-Partial/Moderate Assistance-helper does LESS THAN HALF the effort. Mize lifts, holds or supports trunk or limbs, but provides less than half the effort. 2-Substantial/Maximal Assistance-helper does MORE THAN HALF the effort. Mize lifts or holds trunk or limbs and provides more than half the effort. 4-Wtykfpxfv-smyaht does ALL the effort. Patient does none of the effort to complete the activity. Or, the assistance of 2 or more helpers is required for the patient to complete the activity. If activity was not attempted, code reason: 7-Patient Refused. 9-Not Applicable-not attempted and the patient did not perform the activity before the current illness, exacerbation or injury. 10-Not Attempted due to Environmental Limitations-(lack of equipment, weather restraints, etc.). 88-Not Attempted due to Medical Conditions or Safety Concerns. Bed Mobility: 6 Transfers (B,C,W/C): 6 Gait: 6 Stairs: 6 Indoor Mobility (Ambulation): Independent Stairs: Independent Prior Devices Use: None PT Evaluation-Current Subjective Patient states,"There are kids in the corner." RN present and reports halluci nations. Objective Patient Orientation: Confused Attachments: Oxygen, Luna Catheter rectal tube ROM/Strength ROM Lower Extremities bilateral LE limited due to severe edema Strength Lower Extremities 1/5 grossly bilateral LE Integumentary/Posture Integumentary refer to nursing notes Bowel Incontinence: Yes (rectal tube) Bladder Incontinence: Luna Cath Neuromuscular (Tone, Coordination, Reflexes) severely diminished coordination Sensory Vision: Functional Hearing: Functional Transfers Sit to Lying (QC): 1 (x 3) Lying to Sitting/Side of Bed(Q: 1 (x 2 with dependent assist to maintain EOB x 10min) Gait Does the Patient Walk?: No and Walking Goal IS indicated Balance Sitting Static: Poor Sitting Dynamic: Poor Assessment/Needs 20 y.o. female,will benefit from skilled PT to address functional strength and mobility to improve current LOF to safely return to home at maximum LOF. Rehab Potential: Fair PT Short Term Goals Short Term Goals Time Frame: Oct 05, 2020 Roll Left & Right: 3 Sit to lyin Lying to sitting on side of be: 3 Sit to stand: 3 Chair/gnn-sb-lqtiq transfer: 3 Toilet transfer: 3 Walk 10 feet: 3 PT Continuous Wave Operator Goals Continuous Wave Operator Goals PT Custodial Goals Time Frame: Oct 12, 2020 Roll Left & Right (QC): 6 Sit to Lying (QC): 6 Lying-Sitting on Side/Bed(QC): 6 Sit to Stand (QC): 6 Chair/Xkx-ij-Lgatz Xfer(QC): 6 Toilet Transfer (QC): 6 Car Transfer (QC): 6 Does the Patient Walk: Yes Walk 10 feet (QC): 6 Walk 50ft with 2 Turns (QC): 6 Walk 150 ft (QC): 6 PT Plan Problem List Problem List: Activity Tolerance, Functional Strength, Safety, Balance, Gait, Transfer, Bed Mobility, ROM Treatment/Plan Treatment Plan: Continue Plan of Care Treatment Plan: Bed Mobility, Education, Functional Activity Hair, Functional Strength, Gait, Safety, Therapeutic Exercise, Transfers Treatment Duration: Oct 12, 2020 Frequency: 6 times per week Estimated Hrs Per Day: .25 hour per day Time/GCodes Time In: 1132 Time Out: 1150 Total Billed Treatment Time: 18 [facility] Y[facility] Sep 26, 2020 12:18
[2020-09-26] MEDS: metroNIDAZOLE 500MG/100ML IVPB 100 ML IV SCH ×3 (12:25→22:47)
[2020-09-26] MEDS ORDERED: DEXTROSE 50% 50 ML (IMS) SYR IV NR (12:30)
[2020-09-26] MEDS: ENOXAPARIN 40 MG/0.4 ML (LOVENOX) SYR SC SCH (12:45)
[2020-09-26] MEDS: FLUCONAZOLE 200 MG/100 ML 50 ML, EMPTY IV BAG (PVC) 1 EA IV SCH ×2 (12:46)
[2020-09-26] MEDS: PANTOPRAZOLE 40 MG (PROTONIX) VIAL IV SCH (12:46)
[2020-09-26] MEDS: APAP 325 MG/10.15 ML LIQ (TYLENOL) UDC PO PRN ×2 (14:14→20:47)
--- NOTE | 2020-09-26 15:10 | ST Dysphagia Evaluation ---
Speech Evaluation-General Medical Diagnosis induction Onset Date: Sep 18, 2020 Therapy Diagnosis Therapy Diagnosis: Oropharyngeal Dysphagia Precautions Precautions: Aspiration Referral Referring Physician: Dr. Dodge Medical History Reviewed History: Yes Speech PLF/Current-Dysphagia Prior Level of Function Patient was healthy and able to take care of her daily needs. Subjective The patient was cooperative with the Bedside Dysphagia Evaluation. Oral Motor Skills Dentition: Natural Oral Expression Ability: Moderate Impairment Patient primarily speaks Greek with broken Omani. Voice Voice Phonatory-Based Quality: Weak Voice Pitch: Normal Voice Loudness: Mildly Soft/Quiet Face Facial Symmetry: Symmetrical Oral-Facial Assessment Oral-Facial Dentition: Normal Labial Seal Description: Weak Puff Cheeks: Reduced Strength Lingual Protrusion: Normal Lingual ROM: Normal Lingual Strength: Normal Pharynx Velopharyngeal Move.: Normal Volitional Dry Swallow: Yes Voluntary Cough: Yes Can Clear Throat Volitionally: Yes Dysphagia Evaluation Consistencies Presented: Thin Liquid, Mechanical Soft, Pureed Oral phase is within normal range of function for consistencies presented. Pharyngeal phase is within normal range of function for consistencies presented. Funct. Velo/Pharyngeal Symptom: Cough After Swallow Initial sip of water followed by a cough/clear. Dietary Recommendations: Pureed Liquid Recommendations: Thin Swallowing Precautions: Alternate Liquids/Solids, Double Swallow, Decreased Bolus 1/2 Tsp, Liquids from Straw, Liquids from Spoon, Small Bites and Sips, Sitting Upright 90 Degrees, Sitting 90 Degrees 30 Post Intake Dysphagia Evaluation Summary Patient is a 20 y/o female who was admitted to the hospital while in labor. Patient began running high temperature and BP which resulted in an emergency C- section. Patient was placed in ICU with intubation. Patient was extubated last e vening and was referred for a BDE. The BDE was completed this date with presentations as follows: 1/2 tsp. of thin x3, small sips via straw x3 with cough/clear noted after initial presentation. Swallow was mild onset with the first two sips. Puree was given at 1/2 tsp x3 without difficulty. Patient was given 1/2 tsp of mechanical soft with difficulty initiating mastication. The pat ient is recommended for a Dysphagia I diet level with thin liquids until she regains strength to masticate mechanical soft and regular level. This information was provided to her nurse and written on the white board in her room. ST will follow up tomorrow with ongoing diet level assessment. Barriers to Learning Patient's current medical status, Omani as a second language. Speech Short Term Goals Short Term Goals Short Term Goals 1) Patient will tolerate least restrictive diet level at 90% or greater. 2) Patient/caregiver will utilize compensatory strategies for safe oral intake at 90% or greater. Speech Technician Trainee Goals Long-Term Goals Patient will maintain adequate nutrition/hydration via safe effective swallow function. Speech-Plan Patient/Family Goals Patient/Family Goals: Patient plans on returning home with her family upon discharge. Treatment Plan Speech Therapy Treatment Plan: Continue Plan of Care Treatment Duration: Oct 02, 2020 Frequency: 3 times per week Estimated Hrs Per Day: .5 hour per day Rehab Potential: Fair Barriers to Learning: Patient's current medical status, Omani as a second language. Pt/Family Agrees to Plan: Yes Safety Risks/Education Teaching Recipient: Patient Teaching Methods: Discussion Response to Teaching: Verbalize Understanding, Reinforcement Needed Education Topics Provided: Safety of oral intake, diet level Time Speech Therapy Time In: 13:30 Speech Therapy Time Out: 13:50 Total Billed Time: 20 Billed Treatment Time 1, DYSEVS, DYST ELI Garcia Sep 26, 2020 15:10
--- NOTE | 2020-09-26 15:20 | Occupational Therapy Eval ---
OT Evaluation-General/PLF Medical Diagnosis Admission Date Sep 18, 2020 at 19:24 Medical Diagnosis: ARF s/p Onset Date: Sep 18, 2020 Therapy Diagnosis Therapy Diagnosis: Weakness, decreased ADL skills Precautions Precautions/Isolations: Fall Prevention, Standard Precautions Referral Physician: einopal Referral Reason: Activity Tolerance, Self Care, Evaluation/Treatment, Strengthening/ROM Medical History Current History Pt. underwent . Went into acute respiratory failure after and had to be placed on ventilator support. Pt. was extubated yesterday. Reviewed History: Yes Social History Pt. is unable to verbalize her home set up, or support system. ADL-Prior Level of Function SCALE: Activities may be completed with or without assistive devices. 3-Yqxjtqdbea-tjfwpbv completes the activity by him/herself with no assistance from a helper. 5-Set-up or Clean-up Assistance-helper sets up or cleans up; patient completes activity. Amberg assists only prior to or following the activity. 4-Supervision or Touching Assistance-helper provides verbal cues and/or touching/steadying and/or contact guard assistance as patient completes activity. Assistance may be provided throughout the activity or intermittently. 3-Partial/Moderate Assistance-helper does LESS THAN HALF the effort. Amberg lifts, holds or supports trunk or limbs, but provides less than half the effort. 2-Substantial/Maximal Assistance-helper does MORE THAN HALF the effort. Amberg lifts or holds trunk or limbs and provides more than half the effort. 8-Itrpspmbh-hmyekl does ALL the effort. Patient does none of the effort to complete the activity. Or, the assistance of 2 or more helpers is required for the patient to complete the activity. If activity was not attempted, code reason: 7-Patient Refused. 9-Not Applicable-not attempted and the patient did not perform the activity before the current illness, exacerbation or injury. 10-Not Attempted due to Environmental Limitations-(lack of equipment, weather restraints, etc.). 88-Not Attempted due to Medical Conditions or Safety Concerns. OT Current Status Subjective Pt. does attempt to verbalize, but mostly in Amharic. She does nod one time when OT asks if she can understand her, but then pt. is unable to indicate that she does understand. Mental Status/Objective Patient Orientation: Unable to Assess Attachments: Luna Catheter, IV, Oxygen Current Upper Extremity ROM Pt. is able to demonstrate faint finger movement, but no other UE movement. Edema: Significant edema in bilateral UE noted. ADL-Treatment Pt. has just finished with PT when OT enters room. Pt. positioned on back in bed with pillows for support and pressure relief. Pt. is alert. OT attempts to talk with her. Pt. does not seem to understand, but will say occasional words in Maldivian. Pt. is prompted to follow simple command, and is able to do so. She is able to wiggle her fingers and toes. She is unable to move her wrists or elbows. OT begins to gently passively perform ROM to these areas. Pt. is resistant at elbow level and pulls back. However, she still is unable to move joints on her own. OT provides gentle retrograde massage to bilateral hands for edema management. Pt. indicates that she needs to spit, and so OT places paper towel at mouth, and pt. is weakly able to spit out into it. She does this a second time, but attempts to hold the cloth herself, which she can't do. OT puts sheet on pt. and call light in place. TV turned on. All needs are met and OT will be back tomorrow. Education OT Patient Education: Correct positioning, Exercise program, Progress toward Goal/Update tx plan, Purpose of tx/functional activities, Reviewed precautions, Rehab process Teaching Recipient: Patient Teaching Methods: Demonstration, Discussion Response to Teaching: Unable to Return Demonstration, Unable to Comprehend OT Short Term Goals Short Term Goals Time Frame: Oct 10, 2020 Eatin Oral hygiene: 3 Upper body dressin OT Intermediate Goals Intermediate Goals Time Frame: Oct 24, 2020 Eating (QC): 4 Oral Hygiene (QC): 4 Toileting Hygiene (QC): 3 Shower/Bathe Self (QC): 3 Upper Body Dressing (QC): 5 Lower Body Dressing (QC): 4 On/Off Footwear (QC): 4 Additional Goals: 1-Demonstrate ADL Tasks, 2-Verbalize Understanding, 3- ImproveStrength/Hair 1=Demonstrate adherence to instructed precautions during ADL tasks. 2=Patient will verbalize/demonstrate understanding of assistive devices/mod ifications for ADL. 3=Patient will improve strength/tolerance for activity to enable patient to perform ADL's. OT Education/Plan Problem List/Assessment Assessment: Decreased Activ Tolerance, Decreased UE Strength, Dependent Transfers, Edema, Impaired Bed Mobility, Impaired Cognition, Impaired Coordination, Impaired Funct Balance, Impaired I ADL's, Impaired Self-Care Skills, Restricted Funct UE ROM Discharge Recommendations Plan/Recommendations: Continue POC Therapy Discharge Recommendati: Post Acute OT Comment Equipment needs and discharge location to be determined. Treatment Plan/Plan of Care Treatment,Training & Education: Yes Patient would benefit from OT for education, treatment and training to promote independence in ADL's, mobility, safety and/or upper extremity function for ADL's. Plan of Care: ADL Retraining, Functional Mobility, UE Funct Exercise/Act Treatment Duration: Oct 24, 2020 Frequency: 5 times per week Estimated Hrs Per Day: .25 hour per day Agreement: Yes Rehab Potential: Fair Time/GCodes Start Time: 11:45 Stop Time: 12:00 Total Time Billed (hr/min): 15 Billed Treatment Time 1, SHERRIE CONRAD OT Sep 26, 2020 15:20
[2020-09-26] MEDS: RT-ALBUTEROL INHALER HFA (VENTOLIN HFA) 18 GM IH PRN (21:37)
[2020-09-26] MEDS ORDERED: IBUPROFEN SUSP 100MG/5ML (MOTRIN) UDC PO PRN (23:30)
[2020-09-27] VITALS (11 sets, daily range): BP systolic 125–140; BP diastolic 72–90
[2020-09-27] MEDS: inSUlin ASPART (NovoLOG) 1 UNIT/0.01 ML (CHARGE PER UNIT) SQ SCH ×4 (00:29→18:48)
[2020-09-27] MEDS: RT-ALBUTEROL INHALER HFA (VENTOLIN HFA) 18 GM IH SCH ×5 (02:15→20:58)
[2020-09-27] MEDS: D5W 1000 ML IV SOLUTION 1,000 ML IV SCH ×3 (03:01→22:06)
[2020-09-27] MEDS: APAP 325 MG/10.15 ML LIQ (TYLENOL) UDC PO PRN (03:48)
[2020-09-27 04:06] LABS: BASOPHILS % (AUTO) 0 % (0-10); EOSINOPHILS # (AUTO) 1.1 10^3/uL (0.0-0.3); EOSINOPHILS % (AUTO) 7 % (0-10); HEMATOCRIT 29 % (35-52); HEMOGLOBIN 9.4 g/dL (11.5-16.0); LYMPHOCYTES # (AUTO) 2.8 10^3/uL (1.0-4.0); LYMPHOCYTES % (AUTO) 19 % (12-44); MEAN CORPUSCULAR HEMOGLOBIN 29 pg (25-34); MEAN CORPUSCULAR HGB CONC 32 g/dL (32-36); MEAN CORPUSCULAR VOLUME 91 fL (80-99); MEAN PLATELET VOLUME 9.5 fL (9.0-12.2); MONOCYTES # (AUTO) 0.7 10^3/uL (0.0-1.0); MONOCYTES % (AUTO) 4 % (0-12); NEUTROPHILS # (AUTO) 10.1 10^3/uL (1.8-7.8); NEUTROPHILS % (AUTO) 66 % (42-75); PLATELET COUNT 294 10^3/uL (130-400); WHITE BLOOD COUNT 15.3 10^3/uL (4.3-11.0)
[2020-09-27 04:31] LABS: CALCIUM 7.3 MG/DL (8.5-10.1); CREATININE SERUM 1.24 MG/DL (0.60-1.30); MAGNESIUM 1.7 MG/DL (1.6-2.4); PHOSPHORUS 3.5 MG/DL (2.3-4.7); POTASSIUM 2.8 MMOL/L (3.6-5.0)
--- NOTE | 2020-09-27 05:00 | Pulmonary Progress Note ---
Subjective Time Seen by a Provider: 04:55 Subjective/Events-last exam Pt is doing better however she is very weak. Sepsis Event Evaluation Height, Weight, BMI Height: '" Weight: lbs. oz. kg; 39.60 BMI Method: Focused Exam Lactate Level 09/25/20 20:25: Lactic Acid Level 0.89 Exam Exam Vital Signs Date Time Temp Pulse Resp B/P (MAP) Pulse Ox O2 Delivery O2 Flow Rate FiO2 09/27/20 04:00 38.4 85 24 140/88 (105) 97 Nasal Cannula 5.00 09/27/20 03:48 38.4 09/27/20 03:00 38.3 88 21 135/72 (93) 97 Nasal Cannula 5.00 09/27/20 02:15 97 Nasal Cannula 10.00 09/27/20 02:00 38.4 87 96 Nasal Cannula 5.00 09/27/20 01:00 90 09/27/20 01:00 38.6 93 30 94 Nasal Cannula 5.00 09/27/20 00:00 39.1 101 94 Nasal Cannula 5.00 09/26/20 23:00 39.0 94 146/90 (108) 93 Nasal Cannula 5.00 09/26/20 22:00 39.1 96 140/86 (104) 94 Nasal Cannula 5.00 09/26/20 21:17 39.2 09/26/20 21:00 95 Nasal Cannula 5.00 09/26/20 21:00 39.2 102 23 135/90 (105) 93 Nasal Cannula 5.00 09/26/20 20:47 39.1 09/26/20 20:13 Nasal Cannula 5.00 09/26/20 20:00 39.0 93 148/88 (108) 93 Nasal Cannula 3.00 09/26/20 19:09 98 Nasal Cannula 10.00 09/26/20 19:00 38.8 87 129/89 (102) 96 Nasal Cannula 3.00 09/26/20 19:00 92 09/26/20 18:00 38.6 91 136/83 (100) 99 Nasal Cannula 3.00 09/26/20 17:09 38.4 93 94 32 09/26/20 17:08 38.4 09/26/20 17:00 38.4 96 148/83 (104) 95 Nasal Cannula 3.00 09/26/20 16:00 38.4 92 35 128/81 (97) 93 Nasal Cannula 3.00 09/26/20 15:39 90 Nasal Cannula 3.00 09/26/20 15:00 38.8 96 38 142/78 (99) 91 Nasal Cannula 3.00 09/26/20 14:14 38.5 09/26/20 14:00 38.5 100 39 142/82 (102) 96 Nasal Cannula 3.00 09/26/20 13:00 98 38 128/72 (90) 96 Nasal Cannula 3.00 09/26/20 12:25 87 09/26/20 12:00 38.3 87 34 128/67 (87) 97 Nasal Cannula 3.00 09/26/20 11:50 37.5 09/26/20 11:08 09/26/20 11:00 38.0 105 28 135/82 (99) 91 Nasal Cannula 3.00 09/26/20 10:00 37.9 108 30 182/81 (114) 89 Nasal Cannula 3.00 09/26/20 09:00 Nasal Cannula 5.00 09/26/20 09:00 37.8 90 38 188/91 (123) 91 Nasal Cannula 3.00 09/26/20 08:00 38.0 84 26 192/94 (126) Nasal Cannula 3.00 09/26/20 07:22 37.9 Nasal Cannula 3.00 09/26/20 07:08 93 Vapotherm 25.00 30 09/26/20 07:00 80 26 160/85 (110) 94 Vapotherm 25.00 30.00 09/26/20 07:00 81 09/26/20 06:00 80 28 161/86 (111) 93 Vapotherm 25.00 30.00 09/26/20 05:00 81 25 159/86 (110) 93 Vapotherm 25.00 30.00 I & O 09/27/20 07:00 Intake Total 1520 ml Output Total 5800 ml Balance -4280 ml Height & Weight Height: '" Weight: lbs. oz. kg; 39.60 BMI Method: General Appearance: Other (very ill, sedated and on vent) HEENT: PERRL/EOMI, Moist Mucous Membranes Neck: Normal Inspection, Supple Respiratory: Rhonci; No Wheezing; Other (sedated on vent) Cardiovascular: Regular Rate, Rhythm, No Murmur Capillary Refill: Less Than 3 Seconds Gastrointestinal: non tender, soft Extremity: Normal Capillary Refill, No Calf Tenderness, Pedal Edema Neurologic/Psychiatric: Other (sedated, appears comfortable) Skin: Normal Color, Warm/Dry, Other (incision site clean and dry, mayra in place) Lymphatic: No Adenopathy Results Lab Laboratory Tests 09/25/20 12:20 09/25/20 20:25 09/26/20 02:10 09/27/20 04:00 Assessment/Plan Assessment/Plan Acute Respiratory failure with ARDS with presumptive COVID secondary to significant other testing positive -EICU doctor managed pt through the night -MRSA is negative -Pt is currently only requiring 5 liters of oxygen via NC -Herpes Ab is positive - Will start Acyclovir -Check HIV -CXR - reviewed and shows improvement. -Pt is now off vent and currently on Vapotherm. -speech therapy for swallow eval -- started dysphagia diet -Fi02 has improved to 30% -D/C proning -Repeat COVID is negative. D/C Remdesivir -Influenza negative -Respiratory viral panel - pending Hypoglycemia --IVF currently D5W at 100cc/hr ICU psychosis -Continue to monitor Weakness -Continue PT/OT PNA with sepsis- presumptive COVID- sputum shows candidiasis -Retest for COVID is negative - Diflucan -Justice cultures - reviewed -Continue Zosyn, and Diflucan s/p azithromycin -MRSA pending - off Levophed Persistent fever -Discussed with EICU doctor. Will order CT of chest, abdomen and pelvis without contrast secondary to renal failure. -D/C arterial line and culture tip -Obtain picc line and culture tip -Obtain BC x 3 Diarrhea -Check CDIFF toxin -Start Flagyl Hypernatremia with hypoglycemia -Change IVF to D5W Hypokalemia -Replace Anemia -s/p 1 unit of PRBC typed and crossed. -Monitor Acute renal failure with metabolic acidosis -CR improved -IVF - Will keep at 125 -Monitor Metabolic acidosis -Improving JERMAIN WALSH DO Sep 27, 2020 05:00
[2020-09-27] MEDS: POTASSIUM CL 10MEQ/50ML IVPB 50 ML IV SCH ×8 (07:39→14:57)
[2020-09-27] MEDS: MAGNESIUM 1 GM/100 ML IVPB 100 ML IV SCH ×3 (07:40→11:18)
[2020-09-27] MEDS: KCL 20 MEQ TAB (K-DUR) PO SCH (07:40)
[2020-09-27] MEDS: metroNIDAZOLE 500MG/100ML IVPB 100 ML IV SCH ×3 (07:54→22:05)
[2020-09-27] MEDS: PIPERACILLIN/TAZOBACTAM (BULK) 4.5 GM in NS (IVPB) 100 ML IV SCH ×3 (07:54→22:26)
[2020-09-27] MEDS: ACYCLOVIR INJECTION 500 MG in NS (IVPB) 100 ML IV SCH ×3 (09:24→22:05)
[2020-09-27] MEDS: PANTOPRAZOLE 40 MG (PROTONIX) VIAL IV SCH (09:24)
[2020-09-27] MEDS: risperiDONE 0.25 MG (RisperDAL) TAB PO SCH ×2 (09:24→21:44)
[2020-09-27] MEDS: meTOprolol TARTRATE 25 MG (LOPRESSOR) TABLET PO SCH ×2 (09:24→21:44)
[2020-09-27] MEDS: guaiFENesin/DM (ROBITUSSIN DM) 10 ML UDC NG SCH ×2 (09:24→20:06)
[2020-09-27] MEDS: DOCUSATE SODIUM 10 MG/ML 10 ML UDC (COLACE) PO SCH ×2 (09:24→20:06)
[2020-09-27] MEDS: ENOXAPARIN 40 MG/0.4 ML (LOVENOX) SYR SC SCH (09:25)
[2020-09-27] MEDS: ONDANSETRON 4 MG/2 ML (SDV) Z0FRAN IVP PRN ×3 (09:39→22:23)
[2020-09-27] MEDS ORDERED: MAGNESIUM 1 GM/100 ML IVPB 200 ML IV ONE (09:47)
--- NOTE | 2020-09-27 10:24 | Progress Note ---
Subjective Subjective/Events-last exam Persistently febrile since yesterday, lines d/c and tips cultured, no growth to date. She is more coherent today, but still seems to be having hallulcinations and paranoia. She does appropriately state her name and knows she is in the hospital, but thinks it is [place]. She states she remembers that she had a baby, and says the baby doesn't have a name yet. She denies shortness of breath and notes that her oxygen is out of her nose (which is correct and I adjusted it for her). She also frequently refers to an unknown "her" in the room, she believes I am winking at her and that she has a lot of gift bags over on the counter. She denies headache, neck pain, but states she does have some low back pain. Focused Exam Lactate Level 09/25/20 20:25: Lactic Acid Level 0.89 Objective Exam Last Set of Vital Signs Vital Signs Date Time Temp Pulse Resp B/P (MAP) Pulse Ox O2 Delivery O2 Flow Rate FiO2 09/27/20 10:00 39.0 88 43 138/80 (99) 95 Nasal Cannula 5.00 09/26/20 17:09 32 Capillary Refill : Less Than 3 Seconds I&O Intake and Output 09/27/20 00:00 Intake Total 2151 ml Output Total 4675 ml Balance -2524 ml Intake Oral 100 ml IV Total 2051 ml Output Urine Total 4675 ml General: Alert, No Acute Distress HEENT: EOMI Lungs: Clear to Auscultation, Normal Air Movement Heart: Regular Rate, No Murmurs Abdomen: Normal Bowel Sounds, Soft, No Tenderness Skin: Other (erythematous plaque on inner thighs and mons pubis, unable to tolerate more detailed exam, small amount of vaginal blood on pad) Neuro: Other (CNII-XII inatct with exception of XI which was not tested due to difficulty following instructions. FTN intact but very slow. Moving all extremities equally but weak, oriented to self only) Results/Procedures Lab Laboratory Tests 09/26/20 12:12: Glucometer 50*L 09/26/20 17:38: Glucometer 64L 09/27/20 00:06: Glucometer 80 09/27/20 04:00: White Blood Count 15.3H, Red Blood Count 3.21L, Hemoglobin 9.4L, Hematocrit 29L, Mean Corpuscular Volume 91, Mean Corpuscular Hemoglobin 29, Mean Corpuscular Hemoglobin Concent 32, Red Cell Distribution Width 14.1, Platelet Count 294, Mean Platelet Volume 9.5, Immature Granulocyte % (Auto) 4, Neutrophils (%) (A uto) 66, Lymphocytes (%) (Auto) 19, Monocytes (%) (Auto) 4, Eosinophils (%) (Auto) 7, Basophils (%) (Auto) 0, Neutrophils # (Auto) 10.1H, Lymphocytes # (Auto) 2.8, Monocytes # (Auto) 0.7, Eosinophils # (Auto) 1.1H, Basophils # (Auto) 0.0, Immature Granulocyte # (Auto) 0.6H, Sodium Level 148H, Potassium Level 2.8L, Chloride Level 112H, Carbon Dioxide Level 22, Anion Gap 14, Blood Urea Nitrogen 14, Creatinine 1.24, Estimat Glomerular Filtration Rate 55, BUN/Creatinine Ratio 11, Glucose Level 75, Calcium Level 7.3L, Phosphorus Level 3.5, Magnesium Level 1.7 Microbiology 09/26/20 C. difficile GDH Antigen & Toxins - Final, Complete 09/22/20 MRSA Screen - Final, Complete MRSA not isolated 09/20/20 Blood Culture - Final, Complete No growth 09/20/20 Urine Culture - Final, Complete NO GROWTH 09/19/20 Gram Stain - Final, Complete 09/19/20 Anaerobic Culture - Final, Complete No anaerobes isolated 09/19/20 Surgical Culture - Final, Complete No growth Radiology CT abdomen/pelvis 09/26/20: IMPRESSION: 1. Anasarca. 2. Bilateral pleural effusions, right greater with diffuse bilateral airspace pulmonary infiltrates, consistent with pneumonia or pulmonary edema. There is also small amount of free fluid in the abdomen and pelvis. No well-formed fluid collection or abscess is detected. Assessment/Plan Assessment/Plan (1) Severe sepsis Status: Acute Assessment & Plan: Etiology not entirely clear, COVID and influenza negative. Blood cultures, urine culture negative, negative legionella and strep antigens. RVP pending. Chorioamnionitis noted on placenta. Chest x-ray with diffuse infiltrate. Treated for COVID and bacterial source, COVID treatment d/c'd after multiple negative tests. Antimicrobial history: Ampicillin- 09/19-09/20 (2 doses) Gentamicin- 09/19 (one dose) Cefazolin- 09/19 (one dose) Vancomycin 09/20-09/22 Azithromycin 09/20-09/24 Zosyn 09/20-current Fluconazole 09/24-current Metronidazole 09/26-current Acyclovir 09/27-current (2) Fever Status: Acute Assessment & Plan: Unclear source for new fever, was febrile earlier in hospitalization and had been afebrile for some time, fever recurred 09/26, lines discontinued and cultured, no growth to date. Consider drug induced fever. (3) Hypernatremia Status: Acute Assessment & Plan: Poor oral intake, started on D10 and improved, continue D10. (4) Hypokalemia Status: Acute Assessment & Plan: Replacing and monitoring. (5) Acute renal insufficiency Status: Acute Assessment & Plan: UOP and creatinine currently good, has been up and down at times, continue to monitor closely. D10 as noted above, trying to avoid fluid overload given edema and pulmonary status. (6) Altered mental status Status: Acute Assessment & Plan: Suspect ICU delirium, was extubated on 09/25 pm and is somewhat improved from then, but continues to have hallucinations and confusion. Consider psychosis, will trial low dose risperidone and check brain MRI. Qualifiers: Qualified Codes: R41.0 - Disorientation, unspecified (7) Acute respiratory failure Status: Acute Assessment & Plan: s/p mechanical ventilation with extubation on 09/25 evening, currently on 4-5 lpm supplemental oxygen. Respiratory failure secondary to ARDS from unclear etiology- severe sepsis from chorioamnionitis vs viral (COVID negative but still in differential) vs amniotic fluid embolism. CTA negative for PE. Qualifiers: Qualified Codes: J96.01 - Acute respiratory failure with hypoxia (8) Person under investigation for COVID-19 Status: Resolved Assessment & Plan: Multiple PCR negative, IgG negative. Changed to droplet precautions 09/[address] Dodge. Did receive convalescent plasma and partial course of remdesevir for initial suspicion of COVID. (9) state Status: Acute Assessment & Plan: s/p emergent on 09/19. Monitor vaginal bleeding and incision. Had anemia and did receive one unit of PRBCs, hemoglobin stable. (10) Chorioamnionitis, delivered, current hospitalization Status: Acute Assessment & Plan: Placental path with early acute chorioamnionitis, was treated with amp and gent when she became febrile in labor, currently on Zosyn. (11) Perineal rash in female Status: Acute Assessment & Plan: HSV antibodies sent yesterday, HSV1 IgG pos, acyclovir started per Dr. Dodge. Not highly suspicious of genital herpes given appearance of rash, will check viral culture. (12) Hypertension Status: Acute Assessment & Plan: Became hypertensive around time of , had hypotension with sepsis, but has become hypertensive again. Clinic chart review does show a medical history of hypertension. Currently on metoprolol 25 mg BID and improved today. (13) Diarrhea Status: Acute Assessment & Plan: C diff negative. Suspect due to antibiotics and critical illness. Flexseal in place. Metronidazole started 09/[address] Dodge. (14) At risk for stress ulcer Status: Acute Assessment & Plan: On PPI. Stool occult blood negative. (15) DVT prophylaxis Status: Acute Assessment & Plan: Enoxaparin Clinical Quality Measures DVT/VTE Risk/Contraindication: Risk Factor Score Per Nursin RFS Level Per Nursing on Admit: 1=Low/No VTE PPX LENNY STEARNS MD Sep 27, 2020 10:24
--- NOTE | 2020-09-27 10:39 | NUR ---
Pt transferred to step down at this time room 512 via bed. Personal belongings with pt at time of transfer.
[2020-09-27] MEDS: FLUCONAZOLE 200 MG/100 ML 50 ML, EMPTY IV BAG (PVC) 1 EA IV SCH ×2 (11:19)
--- NOTE | 2020-09-27 13:40 | Occupational Ther Daily Note ---
OT Current Status-Daily Note Subjective Pt alert, lying in bed. Pt speaking some syriac though very quiet and sparingly. Unable to assess pain. Mental Status/Objective Patient Orientation: Person, Unable to Assess Attachments: Luna Catheter, IV, Oxygen, Telemetry ADL-Treatment Therapy Code Descriptions/Definitions Functional [place] Measure: 0=Not Assessed/NA 4=Minimal Assistance 1=Total Assistance 5=Supervision or Setup 2=Maximal Assistance 6=Modified [place] 3=Moderate Assistance 7=Complete IndependenceSCALE: Activities may be completed with or without assistive devices. 2-Lmmuqmkrpy-axksxgc completes the activity by him/herself with no assistance from a helper. 5-Set-up or Clean-up Assistance-helper sets up or cleans up; patient completes activity. [place] assists only prior to or following the activity. 4-Supervision or Touching Assistance-helper provides verbal cues and/or touching/steadying and/or contact guard assistance as patient completes activity. Assistance may be provided throughout the activity or intermittently. 3-Partial/Moderate Assistance-helper does LESS THAN HALF the effort. [place] lifts, holds or supports trunk or limbs, but provides less than half the effort. 2-Substantial/Maximal Assistance-helper does MORE THAN HALF the effort. [place] lifts or holds trunk or limbs and provides more than half the effort. 8-Wuiyuyvnc-kttyej does ALL the effort. Patient does none of the effort to complete the activity. Or, the assistance of 2 or more helpers is required for the patient to complete the activity. If activity was not attempted, code reason: 7-Patient Refused. 9-Not Applicable-not attempted and the patient did not perform the activity before the current illness, exacerbation or injury. 10-Not Attempted due to Environmental Limitations-(lack of equipment, weather restraints, etc.). 88-Not Attempted due to Medical Conditions or Safety Concerns. Other Treatment OT/PT co-treat ([id number]) for skilled care and skilled mobility for UE/LE due to dependent mobility, multiple lines/tubing, increased edema. PT focusing on B LE exercise and ROM while OT focusing on B UE exercise and ROM. B UE movement has increased from yesterday. APROM for B UE to increase mobility and decrease edema. Pt able to manipulate phone to answer as OT/PT leaving. After session, pt lying in bed with call light/phone in reach. All needs met in room. OT Short Term Goals Short Term Goals Time Frame: Oct 10, 2020 Eatin Oral hygiene: 3 Upper body dressin OT Mcc Goals Agricultural Engineering Teacher Goals Time Frame: Oct 24, 2020 Eating (QC): 4 Oral Hygiene (QC): 4 Toileting Hygiene (QC): 3 Shower/Bathe Self (QC): 3 Upper Body Dressing (QC): 5 Lower Body Dressing (QC): 4 On/Off Footwear (QC): 4 Additional Goals: 1-Demonstrate ADL Tasks, 2-Verbalize Understanding, 3- ImproveStrength/Hair 1=Demonstrate adherence to instructed precautions during ADL tasks. 2=Patient will verbalize/demonstrate understanding of assistive devices/modifications for ADL. 3=Patient will improve strength/tolerance for activity to enable patient to perform ADL's. OT Education/Plan Problem List/Assessment Assessment: Decreased Activ Tolerance, Decreased Safety Aware, Decreased UE Strength, Dependent Transfers, Edema, Impaired Bed Mobility, Impaired Cognition, Impaired Coordination, Impaired Funct Balance, Impaired I ADL's, Impaired Self- Care Skills, Restricted Funct UE ROM Discharge Recommendations Plan/Recommendations: Continue POC Treatment Plan/Plan of Care Patient would benefit from OT for education, treatment and training to promote independence in ADL's, mobility, safety and/or upper extremity function for ADL's. Plan of Care: ADL Retraining, Functional Mobility, UE Funct Exercise/Act Treatment Duration: Oct 24, 2020 Frequency: 5 times per week Estimated Hrs Per Day: .25 hour per day Agreement: Yes Rehab Potential: Fair Time/GCodes Start Time: 11:20 Stop Time: 11:46 Total Time Billed (hr/min): 26 Billed Treatment Time 1 visit-FA 2 (26 min) co-treat with PT AMY BLAIR Sep 27, 2020 13:40
--- NOTE | 2020-09-27 13:45 | Diagnostic Imaging Report ---
PROCEDURE: MR imaging of the brain without contrast. TECHNIQUE: Multiplanar, multisequence MR imaging of the brain was performed without contrast. INDICATION: Altered mental status. COMPARISON: None. FINDINGS: No abnormal intracranial signal. No restricted water diffusion. No hemosiderin deposition or evidence of intracranial hemorrhage. No hydrocephalus or extra-axial fluid collections. Normal intracranial flow voids. Normal morphology of the major midline structures, sella, posterior fossa, and cerebellopontine angle. The orbits are unremarkable. Advanced mucosal thickening in the sphenoid sinuses. There are also bilateral mastoid effusions. Normal bone marrow signal. IMPRESSION: 1. Normal MRI of the brain without contrast. 2. Advanced mucosal thickening in the sphenoid sinuses. 3. Bilateral nonspecific mastoid effusions. Dictated by: Dictated on workstation # [id number]
[2020-09-27 14:31] LABS: ALANINE AMINOTRANSFERASE 11 U/L (0-55); ALBUMIN 2.1 GM/DL (3.2-4.5); ALKALINE PHOSPHATASE 75 U/L (40-136); BILIRUBIN,TOTAL 0.5 MG/DL (0.1-1.0); BUN/CREATININE RATIO 12; CALCIUM 6.7 MG/DL (8.5-10.1); CARBON DIOXIDE 21 MMOL/L (21-32); CHLORIDE 112 MMOL/L (98-107); CREATININE SERUM 1.09 MG/DL (0.60-1.30); GFR ESTIMATED > 60; GLUCOSE 73 MG/DL (70-105); SODIUM 146 MMOL/L (135-145)
--- NOTE | 2020-09-27 15:03 | Physical Therapy Daily Note ---
PT Daily Note-Current Subjective Pt in bed upon arrival. Speaking both [place] Islander and Brazilian but sparse and mumbling, unclear at times. When this PT moved Pt's phone to bed side table Pt stated, "Just keep it, just keep it, just keep it" but then later states, "Don't let anyone else get it". Fair-poor command following. Mental Status Patient Orientation: Person, Confused, M[place] Transfers SCALE: Activities may be completed with or without assistive devices. 0-Ughvtpqeoc-buoqcjv completes the activity by him/herself with no assistance from a helper. 5-Set-up or Clean-up Assistance-helper sets up or cleans up; patient completes activity. [place] assists only prior to or following the activity. 4-Supervision or Touching Assistance-helper provides verbal cues and/or touching/steadying and/or contact guard assistance as patient completes activity. Assistance may be provided throughout the activity or intermittently. 3-Partial/Moderate Assistance-helper does LESS THAN HALF the effort. [place] lifts, holds or supports trunk or limbs, but provides less than half the effort. 2-Substantial/Maximal Assistance-helper does MORE THAN HALF the effort. [place] lifts or holds trunk or limbs and provides more than half the effort. 3-Ejkfogwwt-ibipyb does ALL the effort. Patient does none of the effort to complete the activity. Or, the assistance of 2 or more helpers is required for the patient to complete the activity. If activity was not attempted, code reason: 7-Patient Refused. 9-Not Applicable-not attempted and the patient did not perform the activity before the current illness, exacerbation or injury. 10-Not Attempted due to Environmental Limitations-(lack of equipment, weather restraints, etc.). 88-Not Attempted due to Medical Conditions or Safety Concerns. OOB mobility not attempted this date due to fever and chills and Pt not following commands, actively resisting LE movement. Weight Bearing Right Lower Extremity: Right Full Weight Bearing Left Lower Extremity: Left Full Weight Bearing Gait Training Does the Patient Walk?: No and Walking Goal IS indicated Exercises LE P/AAROM (B) Treatments P/AAROM (B) LE Assessment Current Status: Poor Progress Pt with poor participation this date, actively resisting LE movement beyond ankle pumps. Pt febrile and shivering. In bed with O2 in situ, all needs met. Pt did manipulate phone in order to answer it as PT/OT leaving the room. PT Short Term Goals Short Term Goals Time Frame: Oct 05, 2020 Roll Left & Right: 3 Sit to lyin Lying to sitting on side of be: 3 Sit to stand: 3 Chair/ulj-or-ugths transfer: 3 Toilet transfer: 3 Walk 10 feet: 3 PT Forestry Supervisor Goals Forestry Supervisor Goals PT Forestry Supervisor Goals Time Frame: Oct 12, 2020 Roll Left & Right (QC): 6 Sit to Lying (QC): 6 Lying-Sitting on Side/Bed(QC): 6 Sit to Stand (QC): 6 Chair/Zyc-pd-Fgxft Xfer(QC): 6 Toilet Transfer (QC): 6 Car Transfer (QC): 6 Does the Patient Walk: Yes Walk 10 feet (QC): 6 Walk 50ft with 2 Turns (QC): 6 Walk 150 ft (QC): 6 PT Plan Problem List Problem List: Activity Tolerance, Functional Strength, Safety, Balance, Gait, Transfer, Bed Mobility, ROM Treatment/Plan Treatment Plan: Continue Plan of Care Treatment Plan: Bed Mobility, Education, Functional Activity Hair, Functional Strength, Gait, Safety, Therapeutic Exercise, Transfers Treatment Duration: Oct 12, 2020 Frequency: 6 times per week Estimated Hrs Per Day: .25 hour per day Patient and/or Family Agrees t: Yes Time/GCodes Time In: 1140 Time Out: 1206 Total Billed Treatment Time: 26 Total Billed Treatment 1, Ex x 26' Co-treat with OT due to level of assist required. OT addressing UE, PT addressing LE. LEYDA RAZO DPT Sep 27, 2020 15:03
--- NOTE | 2020-09-27 17:48 | NUR ---
Upon entering pt room this RN noted pt to have significant amt of emesis on gown and face. Pt laying in bed at this time at 30 degrees. Emesis noted to be green in color. Zofran given at various times during shift. Will continue to monitor.
[2020-09-27] MEDS: PROMETHAZINE INJ 25 MG/ML (PHENERGAN) AMP IVP PRN (22:24)
[2020-09-28] VITALS (7 sets, daily range): BP systolic 122–145; BP diastolic 72–98
[2020-09-28] MEDS: inSUlin ASPART (NovoLOG) 1 UNIT/0.01 ML (CHARGE PER UNIT) SQ SCH ×5 (01:39→23:12)
[2020-09-28] MEDS: RT-ALBUTEROL INHALER HFA (VENTOLIN HFA) 18 GM IH SCH ×3 (02:42→22:39)
--- NOTE | 2020-09-28 03:51 | Pulmonary Progress Note ---
Subjective Time Seen by a Provider: 03:50 Subjective/Events-last exam Pt is still confused and anxious. Sepsis Event Evaluation Height, Weight, BMI Height: '" Weight: lbs. oz. kg; 39.60 BMI Method: Focused Exam Lactate Level 09/25/20 20:25: Lactic Acid Level 0.89 Exam Exam Vital Signs Date Time Temp Pulse Resp B/P (MAP) Pulse Ox O2 Delivery O2 Flow Rate FiO2 09/28/20 02:43 93 Nasal Cannula 3.00 09/28/20 01:00 97 09/28/20 00:00 37.4 94 32 134/82 (99) 94 Nasal Cannula 3.00 09/27/20 22:06 37.9 93 26 139/90 (106) 92 Nasal Cannula 3.00 09/27/20 21:40 93 Nasal Cannula 3.00 09/27/20 21:30 39.0 90 5 32 09/27/20 20:58 97 Nasal Cannula 5.00 09/27/20 20:31 90 09/27/20 20:00 93 28 125/73 (90) 94 Nasal Cannula 3.00 09/27/20 14:41 96 Nasal Cannula 5.00 09/27/20 12:22 89 09/27/20 12:00 90 36 96 Nasal Cannula 5.00 09/27/20 11:34 96 Nasal Cannula 5.00 09/27/20 10:00 39.0 88 43 138/80 (99) 95 Nasal Cannula 5.00 09/27/20 09:00 93 Nasal Cannula 5.00 09/27/20 09:00 38.8 102 57 134/84 (101) 90 Nasal Cannula 5.00 09/27/20 08:00 38.4 85 42 137/90 (106) 100 Nasal Cannula 5.00 09/27/20 07:00 38.3 93 35 128/81 (97) 99 Nasal Cannula 5.00 09/27/20 06:41 87 09/27/20 06:00 38.2 87 20 135/89 (104) 98 Nasal Cannula 5.00 09/27/20 05:00 38.3 85 20 135/82 (99) 97 Nasal Cannula 5.00 09/27/20 04:18 38.3 09/27/20 04:00 38.4 85 24 140/88 (105) 97 Nasal Cannula 5.00 I & O 09/28/20 07:00 Intake Total 1530 ml Output Total 5700 ml Balance -4170 ml Height & Weight Height: '" Weight: lbs. oz. kg; 39.60 BMI Method: General Appearance: Other (very ill, sedated and on vent) HEENT: PERRL/EOMI, Moist Mucous Membranes Neck: Normal Inspection, Supple Respiratory: Rhonci; No Wheezing; Other (sedated on vent) Cardiovascular: Regular Rate, Rhythm, No Murmur Capillary Refill: Less Than 3 Seconds Gastrointestinal: non tender, soft Extremity: Normal Capillary Refill, No Calf Tenderness, Pedal Edema Neurologic/Psychiatric: Other (sedated, appears comfortable) Skin: Normal Color, Warm/Dry, Other (incision site clean and dry, mayra in place) Lymphatic: No Adenopathy Results Lab Laboratory Tests 09/27/20 04:00 09/27/20 13:55 Assessment/Plan Assessment/Plan s/p Acute Respiratory failure with ARDS-- Now resolved -Pt is only requiring 3 liter NC -MRSA is negative -Herpes Ab is positive - Will start Acyclovir - HIV -negative -CXR - reviewed and shows improvement. -Pt is now off vent and currently on Vapotherm. -speech therapy for swallow eval -- started dysphagia diet -Fi02 has improved to 30% -D/C proning -Repeat COVID is negative. D/C Remdesivir -Influenza negative -Respiratory viral panel - pending Copious amounts of diarrhea -Pt has rectal tube currently per EICU -CDiff is negative x 2 -Stool is a yellow color r/o fistula -Consult Dr. Crespo. I spoke with Dr. Crespo and he will see pt today. -Stool cultures pending Hypoglycemia --IVF currently D5W at 100cc/hr ICU psychosis -Continue to monitor Weakness -Continue PT/OT PNA with sepsis- presumptive COVID- sputum shows candidiasis -Retest for COVID is negative - Diflucan -Justice cultures - reviewed -Continue Zosyn, and Diflucan s/p azithromycin -MRSA pending - off Levophed Persistent fever -D/C arterial line and culture tip -Obtain picc line and culture tip -Obtain BC x 3 Diarrhea -Check CDIFF toxin -Start Flagyl Hypernatremia with hypoglycemia -Change IVF to D5W Hypokalemia -Replace Anemia -s/p 1 unit of PRBC typed and crossed. -Monitor Acute renal failure with metabolic acidosis -CR improved -IVF - Will keep at 125 -Monitor Metabolic acidosis -Improving JERMAIN WALSH DO Sep 28, 2020 03:51
[2020-09-28] MEDS: ACYCLOVIR INJECTION 500 MG in NS (IVPB) 100 ML IV SCH ×3 (05:37→22:08)
[2020-09-28] MEDS: metroNIDAZOLE 500MG/100ML IVPB 100 ML IV SCH ×3 (05:37→20:59)
[2020-09-28] MEDS: PIPERACILLIN/TAZOBACTAM (BULK) 4.5 GM in NS (IVPB) 100 ML IV SCH ×3 (06:11→23:12)
[2020-09-28 06:29] LABS: BASOPHILS # (AUTO) 0.1 10^3/uL (0.0-0.1); BASOPHILS % (AUTO) 1 % (0-10); EOSINOPHILS # (AUTO) 0.7 10^3/uL (0.0-0.3); EOSINOPHILS % (AUTO) 4 % (0-10); HEMATOCRIT 42 % (35-52); HEMOGLOBIN 13.7 g/dL (11.5-16.0); LYMPHOCYTES # (AUTO) 3.2 10^3/uL (1.0-4.0); LYMPHOCYTES % (AUTO) 19 % (12-44); MEAN CORPUSCULAR HEMOGLOBIN 29 pg (25-34); MEAN CORPUSCULAR HGB CONC 33 g/dL (32-36); MEAN CORPUSCULAR VOLUME 88 fL (80-99); MEAN PLATELET VOLUME 9.3 fL (9.0-12.2); MONOCYTES # (AUTO) 0.6 10^3/uL (0.0-1.0); MONOCYTES % (AUTO) 4 % (0-12); NEUTROPHILS # (AUTO) 11.3 10^3/uL (1.8-7.8); NEUTROPHILS % (AUTO) 68 % (42-75); PLATELET COUNT 350 10^3/uL (130-400); WHITE BLOOD COUNT 16.7 10^3/uL (4.3-11.0)
[2020-09-28 06:37] LABS: POTASSIUM 2.6 MMOL/L (3.6-5.0)
[2020-09-28 06:39] LABS: CALCIUM 7.6 MG/DL (8.5-10.1)
[2020-09-28 06:43] LABS: CREATININE SERUM 1.32 MG/DL (0.60-1.30); PHOSPHORUS 4.1 MG/DL (2.3-4.7)
[2020-09-28 06:57] LABS: BAND NEUTROPHILS 1 %; EOSINOPHILS % (MANUAL) 6 %; LYMPHOCYTES % (MANUAL) 12 %; MONOCYTES % (MANUAL) 6 %; NEUTROPHILS % (MANUAL) 75 %; RBC MORPH NORMAL
--- NOTE | 2020-09-28 08:02 | Postpartum Progress Note ---
Note Note Day # 9 Subjective: Patient seen today, and somewhat confused. Difficulty putting together sentences. She had been intubated for nearly a week. I spoke with her about her baby being transferred and doing well as far as I knew, and discussed removal of her mayra Objective: Physical Exam: General - Alert and oriented, no apparent distress Abdomen - Soft, appropriately tender to palpation, non-distended, fundus firm at umbilicus Extremities - no edema, negative Homero's bilaterally Incision- c/d/i Assessment: POD 9 Emergency PLTCS Acute respiratory failure of unknown origin, suspected COVID, but all testing has been negative. Plan: Continued Medical management. EVELIN Barbosa contacted me about removing the mayra which can be done today Plan for discharge pending recovery and medical approval Vitals - Labs Vital Signs - I&O Vital Signs Date Time Temp Pulse Resp B/P (MAP) Pulse Ox O2 Delivery O2 Flow Rate FiO2 09/28/20 07:28 37.4 117 28 145/95 (112) 91 Nasal Cannula 2.00 09/28/20 06:11 37.3 Nasal Cannula 2.00 09/28/20 04:00 38.2 118 38 134/98 (110) 95 Nasal Cannula 2.00 09/28/20 02:43 93 Nasal Cannula 3.00 09/28/20 01:00 97 09/28/20 00:00 37.4 94 32 134/82 (99) 94 Nasal Cannula 3.00 09/27/20 22:06 37.9 93 26 139/90 (106) 92 Nasal Cannula 3.00 09/27/20 21:40 93 Nasal Cannula 3.00 09/27/20 21:30 39.0 90 5 32 09/27/20 20:58 97 Nasal Cannula 5.00 09/27/20 20:31 90 09/27/20 20:00 93 28 125/73 (90) 94 Nasal Cannula 3.00 09/27/20 14:41 96 Nasal Cannula 5.00 09/27/20 12:22 89 09/27/20 12:00 90 36 96 Nasal Cannula 5.00 09/27/20 11:34 96 Nasal Cannula 5.00 09/27/20 10:00 39.0 88 43 138/80 (99) 95 Nasal Cannula 5.00 09/27/20 09:00 93 Nasal Cannula 5.00 09/27/20 09:00 38.8 102 57 134/84 (101) 90 Nasal Cannula 5.00 09/27/20 08:00 38.4 85 42 137/90 (106) 100 Nasal Cannula 5.00 I & O 09/28/20 07:00 Intake Total 1530 ml Output Total 8150 ml Balance -6620 ml Labs Laboratory Tests 09/27/20 13:55: Sodium Level 146H, Potassium Level 3.0L, Chloride Level 112H, Carbon Dioxide Level 21, Anion Gap 13, Blood Urea Nitrogen 13, Creatinine 1.09, Estimat Glomerular Filtration Rate > 60, BUN/Creatinine Ratio 12, Glucose Level 73, Calcium Level 6.7L, Corrected Calcium 8.2L, Total Bilirubin 0.5, Aspartate Amino Transf (AST/SGOT) 26, Alanine Aminotransferase (ALT/SGPT) 11, Alkaline Phosphatase 75, Total Protein 4.0L, Albumin 2.1L 09/27/20 15:11: Lab Scanned Report Transfusion Reaction Form 09/28/20 01:29: Glucometer 93 09/28/20 06:05: Sodium Level 139, Potassium Level 2.6L, Chloride Level 104, Carbon Dioxide Level 22, Anion Gap 13, Blood Urea Nitrogen 13, Creatinine 1.32H, Estimat Glomerular Filtration Rate 51, BUN/Creatinine Ratio 10, Glucose Level 109H, Calcium Level 7.6L, White Blood Count 16.7H, Red Blood Count 4.78, Hemoglobin 13.7#, Hematocrit 42, Mean Corpuscular Volume 88, Mean Corpuscular Hemoglobin 29, Mean Corpuscular Hemoglobin Concent 33, Red Cell Distribution Width 13.9, Platelet Count 350, Mean Platelet Volume 9.3, Immature Granulocyte % (Auto) 5, Neutrophils (%) (Auto) 68, Lymphocytes (%) (Auto) 19, Monocytes (%) (Auto) 4, Eosinophils (%) (Auto) 4, Basophils (%) (Auto) 1, Neutrophils # (Auto) 11.3H, Lymphocytes # (Auto) 3.2, Monocytes # (Auto) 0.6, Eosinophils # (Auto) 0.7H, Basophils # (Auto) 0.1, Immature Granulocyte # (Auto) 0.8H, Neutrophils % (Manual) 75, Lymphocytes % (Manual) 12, Monocytes % (Manual) 6, Eosinophils % (Manual) 6, Band Neutrophils 1, Blood Morphology Comment NORMAL, Phosphorus Level 4.1, Magnesium Level 2.0 Microbiology 09/26/20 Catheter Tip Culture - Preliminary, Resulted 09/26/20 Catheter Tip Culture - Preliminary, Resulted No growth 09/26/20 C. difficile GDH Antigen & Toxins - Final, Complete 09/22/20 MRSA Screen - Final, Complete MRSA not isolated 09/20/20 Urine Culture - Final, Complete NO GROWTH 09/19/20 Gram Stain - Final, Complete 09/19/20 Anaerobic Culture - Final, Complete No anaerobes isolated 09/19/20 Surgical Culture - Final, Complete No growth GAIL COSBY DO Sep 28, 2020 08:02
[2020-09-28] MEDS: D5W 1000 ML IV SOLUTION 1,000 ML IV SCH ×2 (08:44→18:33)
[2020-09-28] MEDS: ENOXAPARIN 40 MG/0.4 ML (LOVENOX) SYR SC SCH (08:46)
[2020-09-28] MEDS: risperiDONE 0.25 MG (RisperDAL) TAB PO SCH ×2 (08:47→21:07)
[2020-09-28] MEDS: PANTOPRAZOLE 40 MG (PROTONIX) VIAL IV SCH (08:47)
[2020-09-28] MEDS: guaiFENesin/DM (ROBITUSSIN DM) 10 ML UDC NG SCH (08:47)
[2020-09-28] MEDS: ONDANSETRON 4 MG/2 ML (SDV) Z0FRAN IVP PRN ×2 (08:47→16:48)
[2020-09-28] MEDS: meTOprolol TARTRATE 25 MG (LOPRESSOR) TABLET PO SCH ×2 (08:47→21:07)
[2020-09-28] MEDS: morphine INJ 4 MG/ML 1 ML (VIAL/SYRINGE) IVP PRN ×2 (10:20→18:07)
[2020-09-28] MEDS: PROMETHAZINE INJ 25 MG/ML (PHENERGAN) AMP IVP PRN ×2 (10:20→13:42)
--- NOTE | 2020-09-28 10:28 | Progress Note - Hospitalist ---
Subjective HPI/CC On Admission Date Seen by Provider: Sep 28, 2020 Time Seen by Provider: 09:45 Pt is a 20yoCF who was admitted to L&D for induction at 40.3wga due to being post dates. Induction was complicated by maternal fever and subsequent loss of variability in FHT and was taken for emergent . Overnight she developed cough and hypoxia as well and was transferred to the ICU. She reports she is feeling better now that she has a nonrebreather on. Her cough started abruptly this morning and her tmax was 40.1 last night. Subjective/Events-last exam Patient is sitting up and staring straight ahead. She tries to answer questions but also appears to be annoyed by them. She follows commands intermittently. MRI from yesterday is noted to be normal. The patient know she has a baby and would like to see her baby. She would like to get better. Her speech is halting and difficult to understand. She has no specific complaints. Focused Exam Lactate Level 09/25/20 20:25: Lactic Acid Level 0.89 Objective Exam Vital Signs Vital Signs Date Time Temp Pulse Resp B/P (MAP) Pulse Ox O2 Delivery O2 Flow Rate FiO2 09/28/20 07:28 37.4 117 28 145/95 (112) 91 Nasal Cannula 2.00 09/27/20 21:30 32 Capillary Refill : Less Than 3 Seconds General Appearance: Obese, Other HEENT: Normal ENT Inspection, Other (Oral thrush) Neck: Limited Range of Motion, Other (Patient can fully flex neck after she relaxes however was resistant at first and seemed to be stiff) Respiratory: Decreased Breath Sounds, Rales Cardiovascular: Tachycardia Gastrointestinal: Normal Bowel Sounds, Soft Rectal: Deferred Extremity: Pedal Edema Neurologic/Psychiatric: Alert, Depressed Affect, Disoriented, Motor Weakness (D iffuse) Skin: Normal Color Results/Procedures Lab Laboratory Tests 09/27/20 13:55 09/28/20 06:05 Patient resulted labs reviewed. Imaging: Reviewed Imaging Report Assessment/Plan Assessment and Plan Assess & Plan/Chief Complaint Status post respiratory failure with persistent confusion of uncertain etiology Fevers of uncertain etiology improving-all cultures and viral's negative to date Status post induction and Profound hypokalemia Tachycardia Hypertension Acute renal failure-most likely secondary to massive diuresis with intravascular volume depletion. Anasarca and ascites noted. Increased hemoglobin also reflective of intravascular volume depletion Chorioamnionitis Plan for physical therapy especially now that she is out of isolation increased activity and orientation. Consideration has been given to a lumbar puncture however patient is on an anticoagulant and signs and symptoms are not compelling. MRI reading was unremarkable. Patient is improving slowly and remains complex. Critical Care Critically Ill Patient Clinical Quality Measures DVT/VTE Risk/Contraindication: Risk Factor Score Per Nursin RFS Level Per Nursing on Admit: 1=Low/No VTE PPX HANG HOGAN MD Sep 28, 2020 10:28
[2020-09-28] MEDS: FLUCONAZOLE 200 MG/100 ML 50 ML, EMPTY IV BAG (PVC) 1 EA IV SCH ×2 (12:00)
--- NOTE | 2020-09-28 12:58 | Physical Therapy Daily Note ---
PT Daily Note-Current Subjective Pt. in bed upon arrival, noted to have vomited in bed. Pt. does not communicate much with therapist, occasionally says "I'm sorry" during session. Mental Status Attachments: Luna Catheter, IV Transfers SCALE: Activities may be completed with or without assistive devices. 5-Infvoirusb-hpqnunp completes the activity by him/herself with no assistance from a helper. 5-Set-up or Clean-up Assistance-helper sets up or cleans up; patient completes activity. [place] assists only prior to or following the activity. 4-Supervision or Touching Assistance-helper provides verbal cues and/or touching/steadying and/or contact guard assistance as patient completes activity. Assistance may be provided throughout the activity or intermittently. 3-Partial/Moderate Assistance-helper does LESS THAN HALF the effort. [place] lifts, holds or supports trunk or limbs, but provides less than half the effort. 2-Substantial/Maximal Assistance-helper does MORE THAN HALF the effort. [place] lifts or holds trunk or limbs and provides more than half the effort. 8-Padouwgvq-xnubia does ALL the effort. Patient does none of the effort to complete the activity. Or, the assistance of 2 or more helpers is required for the patient to complete the activity. If activity was not attempted, code reason: 7-Patient Refused. 9-Not Applicable-not attempted and the patient did not perform the activity before the current illness, exacerbation or injury. 10-Not Attempted due to Environmental Limitations-(lack of equipment, weather restraints, etc.). 88-Not Attempted due to Medical Conditions or Safety Concerns. Roll Left & Right (QC): 1 Sit to Lying (QC): 1 Lying to Sitting/Side of Bed(Q: 1 Sit to Stand (QC): 2 Weight Bearing Right Lower Extremity: Right Full Weight Bearing Left Lower Extremity: Left Full Weight Bearing Treatments transfers Assessment Current Status: Fair Progress Pt. is occasionally resistant to upper and lower extremity movements for positioning during transfers. She has minimal active movement to participate in transfers, thus continues to require assist x 2 to sit edge of bed. Pt. needed assist with changing of gown and clean-up due to vomiting in bed. Nurse present and states rectal tube likely came out during transfer to edge of bed, patient did stand briefly with max A to change bed linens. Pt. completed minimal effort with sit to stand and returning to supine position. Pt. in bed post session with call light and all needs met, LE's positioned for pressure relief. PT Short Term Goals Short Term Goals Time Frame: Oct 05, 2020 Roll Left & Right: 3 Sit to lyin Lying to sitting on side of be: 3 Sit to stand: 3 Chair/pda-td-skbof transfer: 3 Toilet transfer: 3 Walk 10 feet: 3 PT Steam Plant Records Clerk Goals Steam Plant Records Clerk Goals PT Steam Plant Records Clerk Goals Time Frame: Oct 12, 2020 Roll Left & Right (QC): 6 Sit to Lying (QC): 6 Lying-Sitting on Side/Bed(QC): 6 Sit to Stand (QC): 6 Chair/Cvw-sb-Qgzpo Xfer(QC): 6 Toilet Transfer (QC): 6 Car Transfer (QC): 6 Does the Patient Walk: Yes Walk 10 feet (QC): 6 Walk 50ft with 2 Turns (QC): 6 Walk 150 ft (QC): 6 PT Plan Treatment/Plan Treatment Plan: Continue Plan of Care Treatment Plan: Bed Mobility, Education, Functional Activity Hair, Functional Strength, Gait, Safety, Therapeutic Exercise, Transfers Treatment Duration: Oct 12, 2020 Frequency: 6 times per week Estimated Hrs Per Day: .25 hour per day Patient and/or Family Agrees t: Yes Time/GCodes Time In: 1009 Time Out: 1040 Total Billed Treatment Time: 31 Total Billed Treatment 1, FA 31' CONNIE PALMA PT Sep 28, 2020 12:58
--- NOTE | 2020-09-28 13:12 | Diagnostic Imaging Report ---
INDICATION: Hypoxia. Time of exam 12:56 p.m. Correlation is made to prior chest from 09/26/2020. Heart size is stable. There are patchy bilateral pulmonary infiltrates. Overall appearance is similar to perhaps slightly improved when compared with two days earlier. No effusion or pneumothorax identified. IMPRESSION: Bilateral infiltrates show slight improvement when compared with examination two days earlier. Dictated by: Dictated on workstation # [id number]
--- NOTE | 2020-09-28 14:06 | Consultation - Surgery ---
ELADIO HARGROVE MED STUDENT 09/28/20 1406: History of Present Illness History of Present Illness Patient Consulted On(jillian/time) 09/28/20 14:01 Date Seen by Provider: Sep 28, 2020 Time Seen by Provider: 09:15 Reason for Visit: Induction of labor post dates History of Present Illness Yecenia Urena is a 20 YO female admitted for induction of labor on 09/19 and had to have a . She then went into acute respiratory failure of unknown etiology and was intubated and sedated in the ICU. She was moved to stepdown unit yesterday after respiratory failure improved. Surgery consulted by Dr. Dodge for possible colovesicular fistula because pt's rectal tube was draining yellow fluid that he thought might be urine. Nurse states there is an order for Colase, but she did not give it today because pt has been having liquid stool. History difficult to obtain from pt. She is awake, but only answers some questions and says one word at a time. Sometimes responds to her name and can follow some commands. Allergies and Home Medications Allergies Coded Allergies: No Known Drug Allergies (Unverified , 09/18/20) Past Uljbadl-Ppcwsc-Zygvfr Hx Patient Social History Alcohol Use: Denies Use Recreational Drug Use: No Smoking Status: Never a Smoker Recent Foreign Travel: No Contact w/Someone Who Travel: No Recent Infectious Disease Expo: No Physical Abuse Screen: No Sexual Abuse: No Immunizations Up To Date Date of Influenza Vaccine: Jul 16, 2020 Seasonal Allergies Seasonal Allergies: No Surgeries History of Surgeries: No Respiratory History of Respiratory Disorde: No Cardiovascular History of Cardiac Disorders: No Neurological History of Neurological Disord: No Reproductive System : No (delivered 09/20/20) Genitourinary History of Genitourinary Disor: No Gastrointestinal History of Gastrointestinal Di: No Musculoskeletal History of Musculoskeletal Dis: No Endocrine History of Endocrine Disorders: No HEENT History of HEENT Disorders: No Cancer History of Cancer: No Psychosocial History of Psychiatric Problem: Yes Behavioral Health Disorders: Depression Integumentary History of Skin or Integumenta: No Blood Transfusions History of Blood Disorders: No Adverse Reaction to a Blood Tr: No Family Medical History Significant Family History: No Pertinent Family Hx Family Medial History: Diabetes mellitus 19 FATHER 19 MOTHER Review of Systems-General ROS-Unable to Obtain: unable to obtain d/t clinical condition Physical Exam-General Problems Physical Exam Vital Signs Vital Signs - First Documented 09/22/20 09/22/20 09/22/20 00:00 00:10 01:57 Temp 38.1 Pulse 84 Resp 25 B/P (MAP) 120/57 (78) Pulse Ox 93 O2 Delivery Mechanical Ventilator O2 Flow Rate 45.00 FiO2 45 Capillary Refill : Less Than 3 Seconds General Appearance: WD/WN, no apparent distress Eyes: Bilateral Eye Normal Inspection, Bilateral Eye EOMI HEENT: PERRL/EOMI, normal ENT inspection Neck: normal inspection, other (bandage over previous central line site) Respiratory: other (tachypneic, increased work of breathing) Cardiovascular: tachycardia, other (anasarca) Gastrointestinal: non tender, soft Genital/Rectal: other (has rectal tube in place that has yellow/brown drainage) Back: other (unable to inspect, pt not able to follow command to lean forward) Extremities: no calf tenderness, other (bilateral edema) Neurologic/Psychiatric: alert, other (awake, but does not answer most questions; can open her mouth and move her tongue on command, but does not squeeze fingers when asked) Skin: normal color, warm/dry Lymphatic: no adenopathy Data Review Labs Laboratory Tests 09/27/20 15:11: Lab Scanned Report Transfusion Reaction Form 09/28/20 01:29: Glucometer 93 09/28/20 06:05: White Blood Count 16.7H, Red Blood Count 4.78, Hemoglobin 13.7#, Hematocrit 42, Mean Corpuscular Volume 88, Mean Corpuscular Hemoglobin 29, Mean Corpuscular Hemoglobin Concent 33, Red Cell Distribution Width 13.9, Platelet Count 350, Mean Platelet Volume 9.3, Immature Granulocyte % (Auto) 5, Neutrophils (%) (Auto) 68, Lymphocytes (%) (Auto) 19, Monocytes (%) (Auto) 4, Eosinophils (%) (Auto) 4, Basophils (%) (Auto) 1, Neutrophils # (Auto) 11.3H, Lymphocytes # (Auto) 3.2, Monocytes # (Auto) 0.6, Eosinophils # (Auto) 0.7H, Basophils # (Auto) 0.1, Immature Granulocyte # (Auto) 0.8H, Neutrophils % (Manual) 75, Lymphocytes % (Manual) 12, Monocytes % (Manual) 6, Eosinophils % (Manual) 6, Band Neutrophils 1, Blood Morphology Comment NORMAL, Sodium Level 139, Potassium Level 2.6L, Chloride Level 104, Carbon Dioxide Level 22, Anion Gap 13, Blood Urea Nitrogen 13, Creatinine 1.32H, Estimat Glomerular Filtration Rate 51, BUN/Creatinine Ratio 10, Glucose Level 109H, Calcium Level 7.6L, Phosphorus Level 4.1, Magnesium Level 2.0 09/28/20 11:31: Glucometer 116H Microbiology 09/26/20 Catheter Tip Culture - Preliminary, Resulted 09/26/20 Catheter Tip Culture - Preliminary, Resulted No growth 09/26/20 C. difficile GDH Antigen & Toxins - Final, Complete 09/22/20 MRSA Screen - Final, Complete MRSA not isolated 09/20/20 Urine Culture - Final, Complete NO GROWTH 09/19/20 Gram Stain - Final, Complete 09/19/20 Anaerobic Culture - Final, Complete No anaerobes isolated 09/19/20 Surgical Culture - Final, Complete No growth Assessment/Plan Assessment/Plan Assessment/Plan s/p induction of labor s/p respiratory failure ARF and anasarca continue medical management no surgical intervention warranted at this time; will sign off on pt Clinical Quality Measures DVT/VTE Risk/Contraindication: Risk Factor Score Per Nursin RFS Level Per Nursing on Admit: 1=Low/No VTE PPX CINDY LAURENT DO 09/29/20 8407: History of Present Illness History of Present Illness History of Present Illness Consult requested by Dr. Dodge for possible colovesicular fistula. Patient is a 20 year old female who had and acute respiratory failure requiring intubation. Patient has been extubated and is on cardiac stepdown. Patient has been having diarrhea. A rectal tube has been placed and having yellow thin liquid stools. Patient unable to provide any information. Cdiff has been negative. Allergies and Home Medications Allergies Coded Allergies: No Known Drug Allergies (Unverified , 09/18/20) Patient Home Medication List Home Medication List Reviewed: Yes Past Vxpjjmp-Wjnakp-Bkkczm Hx Reviewed Nursing Assessment Reviewed/Agree w Nursing PMH: Yes Family Medical History Significant Family History: No Pertinent Family Hx Family Medial History: Diabetes mellitus 19 FATHER 19 MOTHER Review of Systems-General ROS-Unable to Obtain: patient unable to communicate information Physical Exam-General Problems Physical Exam General Appearance: WD/WN, no apparent distress HEENT: PERRL/EOMI, normal ENT inspection Neck: non-tender, normal inspection, other (bandage over previous central line site right neck) Respiratory: chest non-tender, other (minimally labored breathing) Cardiovascular: no JVD, tachycardia Gastrointestinal: non tender, soft Rectal: other (rectal tube in place, yellow thin drainage) Back: other Extremities: no calf tenderness, other (bilateral edema) Neurologic/Psychiatric: alert; No oriented x 3; other (awake and follows some simple commands) Skin: normal color, warm/dry Lymphatic: no adenopathy Assessment/Plan Assessment/Plan Assessment/Plan s/p induction of labor s/p respiratory failure ARF and anasarca diarrhea questionable colovesicular fistula continue medical management feel it is unlikely that patient has fistula from rectal tube to bladder with uterus in between could infiltrate methylene blue into bladder and see if moves into rectal tube, or get contrast ct to further evaluate, could also consider cystoscopy (urology) no surgical intervention warranted at this time; will sign off on pt call if needed. Supervisory-Addendum Brief Verification & Attestation Participated in pt care: history, MDM, physical Personally performed: exam, history, MDM, supervision of care Care discussed with: Medical Student Procedures: n/a Results interpretation: Verified all documentation Verification and Attestation of Medical Student E/M Service A medical student performed and documented this service in my presence. I reviewed and verified all information documented by the medical student and made modifications to such information, when appropriate. I personally performed the physical exam and medical decision making. Cindy Laurent, Sep 28, 2020,18:00 ELADIO HARGROVE MED STUDENT Sep 28, 2020 14:06 CINDY LAURENT DO Sep 29, 2020 17:53
[2020-09-28] MEDS: POTASSIUM CL 10MEQ/50ML IVPB 50 ML IV SCH ×5 (14:27→17:07)
--- NOTE | 2020-09-28 16:19 | NUR ---
PTS FAMILY CALLED EARLIER AND ASKED THIS RN WHY SHE HADNT FACETIMED WITH PT TODAY AT APPROX 1230. PT HAS BEEN IN BED AND NOT FEELING WELL MOST OF DAY. SHE VOMITED TWICE THIS MORNING. NO TEMP TODAY. THIS AFTERNOON AFTER SHE NAPPED SHE REPORTED TO RN SHE WAS HUNGRY AND RN STARTED HER ON CLEAR LIQUIDS THAT WERE AVAILABLE ON FLOOR. SHE WAS ASKED IF SHE WANTED TO CALL FAMILY AND SHE TOLD ME CLEARLY, NO. IF PT CHANGES HER MIND WE WILL CALL FAMILY.
[2020-09-28] MEDS ORDERED: LORazepam INJ 2 MG/ML (ATIVAN) VIAL IVP PRN (18:30)
[2020-09-29] MEDS: RT-ALBUTEROL INHALER HFA (VENTOLIN HFA) 18 GM IH SCH ×3 (03:17→21:00)
[2020-09-29 03:40] VITALS: BP 139/85
[2020-09-29] MEDS: metroNIDAZOLE 500MG/100ML IVPB 100 ML IV SCH ×3 (04:36→21:25)
[2020-09-29] MEDS: D5W 1000 ML IV SOLUTION 1,000 ML IV SCH (04:38)
--- NOTE | 2020-09-29 04:56 | Pulmonary Progress Note ---
Subjective Time Seen by a Provider: 04:51 Subjective/Events-last exam Pt still appears confused. Sepsis Event Evaluation Height, Weight, BMI Height: '" Weight: lbs. oz. kg; 39.60 BMI Method: Exam Exam Vital Signs Date Time Temp Pulse Resp B/P (MAP) Pulse Ox O2 Delivery O2 Flow Rate FiO2 09/29/20 03:40 37.6 108 22 139/85 (103) 95 Nasal Cannula 2.00 09/29/20 03:17 97 Nasal Cannula 2.00 09/29/20 01:00 113 09/28/20 23:16 36.4 115 24 125/82 (96) 98 Nasal Cannula 2.00 09/28/20 22:39 97 Nasal Cannula 3.00 09/28/20 21:00 Nasal Cannula 3.00 09/28/20 20:00 36.6 115 30 122/72 (89) 93 Nasal Cannula 2.00 09/28/20 19:00 115 09/28/20 16:00 37.4 116 20 128/81 (97) 96 Nasal Cannula 2.00 09/28/20 15:21 96 Nasal Cannula 4.00 09/28/20 12:56 124 09/28/20 11:23 36.8 121 32 129/83 (98) 91 Nasal Cannula 2.00 09/28/20 09:00 95 Nasal Cannula 2.00 09/28/20 07:28 37.4 117 28 145/95 (112) 91 Nasal Cannula 2.00 09/28/20 07:00 115 09/28/20 06:11 37.3 Nasal Cannula 2.00 I & O 09/29/20 07:00 Intake Total 25 ml Output Total 1375 ml Balance -1350 ml Height & Weight Height: '" Weight: lbs. oz. kg; 39.60 BMI Method: General Appearance: Obese, Other HEENT: Normal ENT Inspection, Other (Oral thrush) Neck: Limited Range of Motion, Other (Patient can fully flex neck after she relaxes however was resistant at first and seemed to be stiff) Respiratory: Decreased Breath Sounds, Rales Cardiovascular: Tachycardia Capillary Refill: Less Than 3 Seconds Gastrointestinal: non tender, soft Extremity: Pedal Edema Neurologic/Psychiatric: Alert, Depressed Affect, Disoriented, Motor Weakness (Diffuse) Skin: Normal Color Lymphatic: No Adenopathy Results Lab Laboratory Tests 09/27/20 13:55 09/28/20 06:05 Assessment/Plan Assessment/Plan s/p Acute Respiratory failure with ARDS-- Now resolved -Pt is only requiring 3 liter NC -MRSA is negative -Labs pending -Repeat PCT, Lactic acid, blood cultures -Obtain peripheral IV and D/C midline and culture tip. -Herpes Ab is positive - Acyclovir - HIV -negative -CXR - reviewed and shows improvement. -Pt is now off vent and currently on Vapotherm. -speech therapy for swallow eval -- started dysphagia diet -Add Zyvox -Fi02 has improved to 30% -D/C proning -Repeat COVID is negative. D/C Remdesivir -Influenza negative -Respiratory viral panel - pending Copious amounts of diarrhea -Pt has rectal tube currently per EICU -CDiff is negative x 2 -Stool is a yellow color r/o fistula -Consulted Dr. Crespo. -Dr. Crespo signed off -Stool cultures pending Hypoglycemia --IVF currently D5W at 100cc/hr ICU psychosis/ psychosis -Continue to monitor Weakness -Continue PT/OT PNA with sepsis- presumptive COVID- sputum shows candidiasis -Retest for COVID is negative - Diflucan -Justice cultures - reviewed -Continue Zosyn, and Diflucan s/p azithromycin -MRSA pending - off Levophed Persistent fever -D/C arterial line and culture tip -Obtain picc line and culture tip -Obtain BC x 3 Diarrhea -Check CDIFF toxin -Start Flagyl Hypernatremia with hypoglycemia -Change IVF to D5W Hypokalemia -Replace Anemia -s/p 1 unit of PRBC typed and crossed. -Monitor Acute renal failure with metabolic acidosis -CR improved -IVF - Will keep at 125 -Monitor Metabolic acidosis -Improving JERMAIN WALSH DO Sep 29, 2020 04:56
[2020-09-29 05:30] LABS: BASOPHILS # (AUTO) 0.1 10^3/uL (0.0-0.1); BASOPHILS % (AUTO) 0 % (0-10); EOSINOPHILS # (AUTO) 0.7 10^3/uL (0.0-0.3); EOSINOPHILS % (AUTO) 5 % (0-10); HEMATOCRIT 35 % (35-52); HEMOGLOBIN 11.5 g/dL (11.5-16.0); LYMPHOCYTES # (AUTO) 2.9 10^3/uL (1.0-4.0); LYMPHOCYTES % (AUTO) 23 % (12-44); MEAN CORPUSCULAR HEMOGLOBIN 29 pg (25-34); MEAN CORPUSCULAR HGB CONC 33 g/dL (32-36); MEAN CORPUSCULAR VOLUME 88 fL (80-99); MEAN PLATELET VOLUME 9.8 fL (9.0-12.2); MONOCYTES # (AUTO) 0.7 10^3/uL (0.0-1.0); MONOCYTES % (AUTO) 5 % (0-12); NEUTROPHILS % (AUTO) 63 % (42-75); PLATELET COUNT 304 10^3/uL (130-400); WHITE BLOOD COUNT 12.6 10^3/uL (4.3-11.0)
[2020-09-29] MEDS: ACYCLOVIR INJECTION 500 MG in NS (IVPB) 100 ML IV SCH ×3 (05:42→21:25)
[2020-09-29 05:43] LABS: POTASSIUM 2.6 MMOL/L (3.6-5.0)
[2020-09-29 05:44] LABS: CALCIUM 7.4 MG/DL (8.5-10.1)
[2020-09-29 05:48] LABS: CREATININE SERUM 1.27 MG/DL (0.60-1.30); PHOSPHORUS 3.4 MG/DL (2.3-4.7)
[2020-09-29 05:51] LABS: MAGNESIUM 1.9 MG/DL (1.6-2.4)
[2020-09-29] MEDS: inSUlin ASPART (NovoLOG) 1 UNIT/0.01 ML (CHARGE PER UNIT) SQ SCH ×4 (06:25→23:20)
[2020-09-29] MEDS: DEXTROSE 10% IV SOLUTION 1,000 ML IV SCH ×2 (06:26→18:39)
[2020-09-29] MEDS: POTASSIUM CL 10MEQ/50ML IVPB 50 ML IV SCH ×8 (06:26→22:18)
[2020-09-29] MEDS: PIPERACILLIN/TAZOBACTAM (BULK) 4.5 GM in NS (IVPB) 100 ML IV SCH ×3 (06:31→21:24)
[2020-09-29 07:19] VITALS: BP 129/78
[2020-09-29 07:23] LABS: BILIRUBIN,URINE NEGATIVE (NEGATIVE); CLARITY,URINE CLEAR; COLOR,URINE YELLOW; GLUCOSE, URINE (UA) NEGATIVE (NEGATIVE); KETONES,URINE NEGATIVE (NEGATIVE); LEUKOCYTE ESTERASE ,URINE NEGATIVE (NEGATIVE); NITRITE,URINE NEGATIVE (NEGATIVE); PROTEIN,URINE TRACE (NEGATIVE)
[2020-09-29 07:44] LABS: BACTERIA,URINE TRACE /HPF; WBC,URINE 0-2 /HPF
[2020-09-29 07:45] LABS: SQUAMOUS EPITHELIAL CELL,UR RARE /HPF
--- NOTE | 2020-09-29 10:08 | NUR ---
THIS NURSE NOTIFIED DR HOGAN PT FELL. PT DENIES ANY PAIN. PT IS STILL CONFUSED. BP 133/96, HR 114, RR 30, AND O2 95%. NO NEW ORDERS AT THIS TIME. WILL CONTINUE TO MONITOR. Addendum: 09/29/20 at 2017 by CAROLINA LANZA RN [id number]- PHYSICAL ASSESSMENT UNCHANGED.
--- NOTE | 2020-09-29 11:00 | NUR ---
THIS NURSE NOTIFIED DR HOGAN PT IS HALLUCINATING. DR HOGAN IS ON HER WAY TO SEE PT. WILL CONTINUE TO MONITOR.
[2020-09-29] MEDS: ENOXAPARIN 40 MG/0.4 ML (LOVENOX) SYR SC SCH (11:02)
[2020-09-29] MEDS: PANTOPRAZOLE 40 MG (PROTONIX) VIAL IV SCH (11:03)
[2020-09-29] MEDS: risperiDONE 0.25 MG (RisperDAL) TAB PO SCH ×2 (11:03→20:27)
[2020-09-29] MEDS: LINEZOLID IVPB 300 ML IV SCH ×2 (11:03→20:27)
[2020-09-29] MEDS: meTOprolol TARTRATE 25 MG (LOPRESSOR) TABLET PO SCH ×2 (11:03→20:27)
[2020-09-29] MEDS ORDERED: HALOPERIDOL 5 MG/ML (HALDOL) VIAL ONE (11:26)
[2020-09-29] MEDS ORDERED: HALOPERIDOL 5 MG/ML (HALDOL) VIAL IM PRN (11:30)
--- NOTE | 2020-09-29 11:30 | NUR ---
FAMILY UPDATED ON PT CONDITION.
[2020-09-29 11:40] VITALS: BP 137/89
[2020-09-29] MEDS ORDERED: INDIGO CARMINE 8 MG/ML 5 ML AMP INJ ONE (11:45)
--- NOTE | 2020-09-29 11:52 | Progress Note - Hospitalist ---
Subjective HPI/CC On Admission Date Seen by Provider: Sep 29, 2020 Time Seen by Provider: 11:15 Pt is a 20yoCF who was admitted to L&D for induction at 40.3wga due to being post dates. Induction was complicated by maternal fever and subsequent loss of variability in FHT and was taken for emergent . Overnight she developed cough and hypoxia as well and was transferred to the ICU. She reports she is feeling better now that she has a nonrebreather on. Her cough started abruptly this morning and her tmax was 40.1 last night. Subjective/Events-last exam Patient is more oriented today when I talked to her this morning. She was very paranoid however earlier. We have cleaned up her medication list discontinuing Paul morphine Ativan or any other medication that might be contributing to her confusion and paranoia. So far it still felt to be postop or post ICU delirium. Patient is having very very watery diarrhea how it is not C. difficile positive cultures are pending. Discussed with Dr. COSBY and will try and determine if she has in vesicle colonic fistula. Patient denies having pain. She tried to get up out of bed today by herself but was found on her knees. She denies injury Review of Systems Neurological: Weakness, Confusion Focused Exam Lactate Level 09/29/20 08:40: Lactic Acid Level 1.10 Lactic Acid Level Laboratory Tests Test 09/29/20 08:40 Lactic Acid Level 1.10 MMOL/L (0.50-2.00) Objective Exam Vital Signs Vital Signs Date Time Temp Pulse Resp B/P (MAP) Pulse Ox O2 Delivery O2 Flow Rate FiO2 09/29/20 11:40 37.0 108 28 137/89 (105) 99 Nasal Cannula 2.00 09/27/20 21:30 32 Capillary Refill : Less Than 3 Seconds General Appearance: Obese HEENT: Normal ENT Inspection Neck: Supple Respiratory: Lungs Clear, Normal Breath Sounds, No Respiratory Distress, Accessory Muscle Use Cardiovascular: No Gallop, Tachycardia Gastrointestinal: Normal Bowel Sounds, Non Tender, Soft Extremity: Pedal Edema Neurologic/Psychiatric: Alert, Disoriented Results/Procedures Lab Laboratory Tests 09/29/20 05:20 Patient resulted labs reviewed. Imaging: Reviewed Imaging Report Assessment/Plan Assessment and Plan Assess & Plan/Chief Complaint Status post respiratory failure with persistent confusion of uncertain etiology- we will DC all medications that could be contributing. Fevers -resolved in the last 24 hours-culture tips for the line did show staph organisms-on Zyvox and Zosyn Status post induction and Profound hypokalemia-place Tachycardia Hypertension Acute renal failure-most likely secondary to massive diuresis with intravascular volume depletion. Anasarca and ascites noted. Increased hemoglobin also reflective of intravascular volume depletion-improved today Chorioamnionitis Diarrhea we will check to make sure there is not a fistula present Plan for physical therapy especially now that she is out of isolation increased activity and orientation. Consideration has been given to a lumbar puncture however patient is on an anticoagulant and signs and symptoms are not compelling . MRI reading was unremarkable. Patient is improving slowly and remains complex. Critical Care Critically Ill Patient Clinical Quality Measures DVT/VTE Risk/Contraindication: Risk Factor Score Per Nursin RFS Level Per Nursing on Admit: 1=Low/No VTE PPX HANG HOGAN MD Sep 29, 2020 11:52
--- NOTE | 2020-09-29 14:16 | Diagnostic Imaging Report ---
INDICATION: Central line placement. TIME OF EXAM: 02:03 p.m. COMPARISON: Correlation is made with prior chest from one day earlier. FINDINGS: There has been placement of a left low IJ central line. The central line does have an abnormal course, directed vertically in the left paraspinous location. In correlating with patient's prior CT chest studies, the patient does not have a left-sided SVC. This catheter may be located within the left superior intercostal vein which runs just lateral to the aortic arch. Possibility of an intra-arterial location cannot be entirely excluded. Infiltrates in the right upper lobe are noted. There has been some improved aeration of both lung bases since prior. There is no effusion or pneumothorax. IMPRESSION: Abnormal course to the recently placed left IJ central line, described above. Results will be discussed with Dr. Kavon Crespo. No pneumothorax is seen. Infiltrates have improved. Dictated by: Dictated on workstation # [id number]
[2020-09-29] MEDS: FLUCONAZOLE 200 MG/100 ML 50 ML, EMPTY IV BAG (PVC) 1 EA IV SCH ×2 (14:44)
[2020-09-29] MEDS ORDERED: MIDAZOLAM 5 MG/5 ML (VERSED) VIAL ONE (15:04)
[2020-09-29] MEDS ORDERED: LIDOCAINE 1% INJ 20 ML 20 ML VIAL ONE (15:04)
[2020-09-29] MEDS ORDERED: NS IV 1000 ML 1,000 ML ONE (15:05)
[2020-09-29] MEDS ORDERED: HEParin (CATH LAB) 1,000 ML IV ONE ×2 (15:05→15:15)
[2020-09-29] MEDS ORDERED: fentaNYL INJECTION 100 MCG/2 ML AMP ONE (15:05)
[2020-09-29 17:00] VITALS: BP 127/77
--- NOTE | 2020-09-29 18:00 | NUR ---
THIS NURSE FACETIME WITH THE PT AND HER MOM.
--- NOTE | 2020-09-29 18:55 | NUR ---
THIS NURSE NOTIFIED DR HOGAN PT RECEIVED INDIGO INJECTION VIA JENSEN. JENSEN WAS CLAMPED. THERE WAS NO INDIGO SEEN IN THE FLEXISEAL. WILL CONTINUE TO MONITOR.
[2020-09-29 20:38] VITALS: BP 104/64
--- NOTE | 2020-09-29 21:12 | Progress Note - Surgery ---
Subjective Date Seen by a Provider: Sep 29, 2020 Time Seen by a Provider: 13:04 Subjective/Events-last exam Patient is alert but seems confused very limited answering of questions and difficult to understand. Patient had PICC line that got pulled and now only with a small gauge IV. I was asked to come place central line, due to patient needing multiple medications and more secure IV access. Focused Exam Lactate Level 09/29/20 08:40: Lactic Acid Level 1.10 Objective Exam Vital Signs Date Time Temp Pulse Resp B/P (MAP) Pulse Ox O2 Delivery O2 Flow Rate FiO2 09/29/20 20:53 96 Nasal Cannula 3.00 09/29/20 20:38 36.4 85 27 104/64 (77) 98 Nasal Cannula 2.00 09/29/20 17:00 37.0 96 32 127/77 (94) 97 Nasal Cannula 2.00 09/29/20 12:59 110 09/29/20 11:40 37.0 108 28 137/89 (105) 99 Nasal Cannula 2.00 09/29/20 09:00 96 Nasal Cannula 3.00 09/29/20 07:19 36.9 106 32 129/78 (95) 91 Nasal Cannula 2.00 09/29/20 07:05 97 Nasal Cannula 2.00 09/29/20 07:00 106 09/29/20 03:40 37.6 108 22 139/85 (103) 95 Nasal Cannula 2.00 09/29/20 03:17 97 Nasal Cannula 2.00 09/29/20 01:00 113 09/28/20 23:16 36.4 115 24 125/82 (96) 98 Nasal Cannula 2.00 09/28/20 22:39 97 Nasal Cannula 3.00 I & O 09/29/20 07:00 Intake Total 1565 ml Output Total 2675 ml Balance -1110 ml Capillary Refill : Less Than 3 Seconds General Appearance: No Apparent Distress, WD/WN, Obese HEENT: PERRL/EOMI, Normal ENT Inspection Neck: Non Tender, Supple Respiratory: Chest Non Tender, No Accessory Muscle Use, No Respiratory Distress, Accessory Muscle Use Cardiovascular: No Gallop, Tachycardia Gastrointestinal: non tender, soft Extremity: Non Tender, Pedal Edema Neurologic/Psychiatric: Alert, Disoriented Skin: Normal Color Lymphatic: No Adenopathy Results Lab Laboratory Tests 09/28/20 23:11: Glucometer 89 11/15/20 05:20: White Blood Count 12.6H, Red Blood Count 3.96, Hemoglobin 11.5, Hematocrit 35, Mean Corpuscular Volume 88, Mean Corpuscular Hemoglobin 29, Mean Corpuscular Hemoglobin Concent 33, Red Cell Distribution Width 13.9, Platelet Count 304, Mean Platelet Volume 9.8, Immature Granulocyte % (Auto) 3, Neutrophils (%) (Auto) 63, Lymphocytes (%) (Auto) 23, Monocytes (%) (Auto) 5, Eosinophils (%) (Auto) 5, Basophils (%) (Auto) 0, Neutrophils # (Auto) 8.0H, Lymphocytes # (Auto) 2.9, Monocytes # (Auto) 0.7, Eosinophils # (Auto) 0.7H, Basophils # (Auto) 0.1, Immature Granulocyte # (Auto) 0.3H, Sodium Level 139, Potassium Level 2.6L, Chloride Level 104, Carbon Dioxide Level 21, Anion Gap 14, Blood Urea Nitrogen 13, Creatinine 1.27, Estimat Glomerular Filtration Rate 53, BUN/Creatinine Ratio 10, Glucose Level 79, Calcium Level 7.4L, Phosphorus Level 3.4, Magnesium Level 1.9, Procalcitonin 0.55H, Thyroid Stimulating Hormone (TSH) 4.25 09/29/20 05:39: Urine Color YELLOW, Urine Clarity CLEAR, Urine pH 6.0, Urine Specific [place] 1.010L, Urine Protein TRACEH, Urine Glucose (UA) NEGATIVE, Urine Ketones NEGATIVE, Urine Nitrite NEGATIVE, Urine Bilirubin NEGATIVE, Urine Urobilinogen 0.2, Urine Leukocyte Esterase NEGATIVE, Urine RBC (Auto) 1+H, Urine RBC NONE, Urine WBC 0-2, Urine Squamous Epithelial Cells RARE, Urine Crystals NONE, Urine Bacteria TRACE, Urine Casts NONE, Urine Mucus NEGATIVE, Urine Culture Indicated NO 09/29/20 08:40: Lactic Acid Level 1.10 09/29/20 12:20: Glucometer 88 09/29/20 18:41: Glucometer 118H Microbiology 09/26/20 Catheter Tip Culture - Preliminary, Resulted No growth 09/26/20 Catheter Tip Culture - Final, Complete Staphylococcus warneri Staphylococcus hominis 09/26/20 C. difficile GDH Antigen & Toxins - Final, Complete 09/22/20 MRSA Screen - Final, Complete MRSA not isolated 09/20/20 Urine Culture - Final, Complete NO GROWTH 09/19/20 Gram Stain - Final, Complete 09/19/20 Anaerobic Culture - Final, Complete No anaerobes isolated 09/19/20 Surgical Culture - Final, Complete No growth Assessment/Plan Assessment/Plan Assessment/Plan s/p induction of labor s/p respiratory failure ARF and anasarca diarrhea poor venous access questionable colovesicular fistula continue medical management feel it is unlikely that patient has fistula from rectal tube to bladder with uterus in between Indigo blue into bladder, no dye seen within the rectal tube reported by nursing. Feel the fistula is unlikely but could get contrast ct to further evaluate, could also consider cystoscopy (urology) no surgical intervention warranted at this time Patient with poor IV access PICC line removed and some needing multiple medications will place ultrasound-guided central line. Chest x-ray after central line demonstrating a course inferiorly from left internal jugular location which could represent arterial placement versus placement small venous vessel, discussed with Dr. Jennings will take down to T[employer]ter for repositioning if in venous location. After Tire Setter confirmation confirmed to be arterial which Dr. Jennings I discussed with vascular surgery which recommended removal and pressure for 20 minutes. Catheter was removed pressure was held for 20 minutes minimum no evidence of any hematoma or complication. Clinical Quality Measures DVT/VTE Risk/Contraindication: Risk Factor Score Per Nursin RFS Level Per Nursing on Admit: 1=Low/No VTE PPX CINDY LAURENT DO Sep 29, 2020 21:12
[2020-09-29 23:11] VITALS: BP 117/65
[2020-09-30] VITALS (7 sets, daily range): BP systolic 118–153; BP diastolic 77–106
[2020-09-30 02:27] LABS: BASOPHILS # (AUTO) 0.1 10^3/uL (0.0-0.1); BASOPHILS % (AUTO) 1 % (0-10); EOSINOPHILS # (AUTO) 0.5 10^3/uL (0.0-0.3); EOSINOPHILS % (AUTO) 6 % (0-10); HEMATOCRIT 28 % (35-52); LYMPHOCYTES # (AUTO) 2.2 10^3/uL (1.0-4.0); LYMPHOCYTES % (AUTO) 27 % (12-44); MEAN CORPUSCULAR HEMOGLOBIN 29 pg (25-34); MEAN CORPUSCULAR HGB CONC 32 g/dL (32-36); MEAN CORPUSCULAR VOLUME 89 fL (80-99); MEAN PLATELET VOLUME 9.9 fL (9.0-12.2); MONOCYTES # (AUTO) 0.6 10^3/uL (0.0-1.0); MONOCYTES % (AUTO) 7 % (0-12); NEUTROPHILS # (AUTO) 4.8 10^3/uL (1.8-7.8); NEUTROPHILS % (AUTO) 58 % (42-75); PLATELET COUNT 237 10^3/uL (130-400); WHITE BLOOD COUNT 8.3 10^3/uL (4.3-11.0)
--- NOTE | 2020-09-30 02:31 | OPERATIVE REPORT ---
DATE OF SERVICE: 09/29/2020 PREOPERATIVE DIAGNOSIS: Need for venous access. POSTOPERATIVE DIAGNOSIS: Need for venous access. PROCEDURE: Left internal jugular vein ultrasound-guided central line placement. SURGEON: Cindy Crespo DO ANESTHESIA: A 1% lidocaine 3 mL. COMPLICATIONS: None. INDICATIONS: The patient is a 20-year-old female, who has removed PICC line and needing a venous access from multiple medications. She had a PICC line that got removed and only has small gauge peripheral line at this time. Internal jugular vein ultrasound-guided central line to be placed for better access. PROCEDURE: The left neck was prepped and draped in sterile fashion. Timeout was performed. Local anesthetic was infiltrated under visualization of the ultrasound. The left internal jugular vein was isolated. The needle was then advanced and dark nonpulsatile blood was withdrawn. The catheter was removed. The patient did move and nonpulsatile bleeding occurred and the wire went in without any difficulty. A #11 blade scalpel was used to make a skin incision. Dilator was then advanced over the wire and removed. The triple lumen catheter was inserted over the wire and the wire was removed. All ports accessed and flushed without difficulty. The catheter was then sewn into place and the area was washed and dried and sterile bandage was applied. The patient tolerated procedure well without any complications. Chest x-ray pending. Job ID: [id number] DocumentID: [id number] Dictated Date: 09/29/2020 21:21:40 Electronic Assembler Group Leader Date: 09/30/2020 02:30:52 Dictated By: CINDY CRESPO DO [facility]
[2020-09-30 02:40] LABS: ALBUMIN 2.5 GM/DL (3.2-4.5); CHLORIDE 105 MMOL/L (98-107); POTASSIUM 2.8 MMOL/L (3.6-5.0); SODIUM 136 MMOL/L (135-145)
[2020-09-30 02:41] LABS: AMYLASE 148 U/L (25-125); CALCIUM 7.3 MG/DL (8.5-10.1)
[2020-09-30 02:42] LABS: AMMONIA 41 UMOL/L (11-32); GLUCOSE 95 MG/DL (70-105)
[2020-09-30 02:44] LABS: BILIRUBIN,TOTAL 0.4 MG/DL (0.1-1.0); CARBON DIOXIDE 19 MMOL/L (21-32)
[2020-09-30 02:46] LABS: ALKALINE PHOSPHATASE 61 U/L (40-136); CREATININE SERUM 1.08 MG/DL (0.60-1.30); GFR ESTIMATED > 60; PHOSPHORUS 3.2 MG/DL (2.3-4.7)
[2020-09-30 02:47] LABS: BUN/CREATININE RATIO 7
[2020-09-30 02:49] LABS: ALANINE AMINOTRANSFERASE 13 U/L (0-55); MAGNESIUM 1.7 MG/DL (1.6-2.4)
[2020-09-30 02:50] LABS: LIPASE 335 U/L (8-78)
[2020-09-30] MEDS: RT-ALBUTEROL INHALER HFA (VENTOLIN HFA) 18 GM IH SCH ×4 (02:58→21:15)
[2020-09-30] MEDS: DEXTROSE 10% IV SOLUTION 1,000 ML IV SCH (03:08)
--- NOTE | 2020-09-30 04:54 | Pulmonary Progress Note ---
Subjective Time Seen by a Provider: 04:49 Subjective/Events-last exam Pt is still confused. Denies abdominal pain. no nausea/vomiting through the night. Sepsis Event Evaluation Height, Weight, BMI Height: '" Weight: lbs. oz. kg; 39.60 BMI Method: Focused Exam Lactate Level 09/29/20 08:40: Lactic Acid Level 1.10 Exam Exam Vital Signs Date Time Temp Pulse Resp B/P (MAP) Pulse Ox O2 Delivery O2 Flow Rate FiO2 09/30/20 03:12 37.0 101 30 126/77 (93) 94 Room Air 09/30/20 02:58 95 Room Air 0.00 09/30/20 01:00 109 09/29/20 23:11 37.0 89 32 117/65 (82) 98 Room Air 09/29/20 21:00 98 Nasal Cannula 0.50 09/29/20 20:53 96 Nasal Cannula 3.00 09/29/20 20:38 36.4 85 27 104/64 (77) 98 Nasal Cannula 2.00 09/29/20 19:00 97 09/29/20 17:00 37.0 96 32 127/77 (94) 97 Nasal Cannula 2.00 09/29/20 12:59 110 09/29/20 11:40 37.0 108 28 137/89 (105) 99 Nasal Cannula 2.00 09/29/20 09:00 96 Nasal Cannula 3.00 09/29/20 07:19 36.9 106 32 129/78 (95) 91 Nasal Cannula 2.00 09/29/20 07:05 97 Nasal Cannula 2.00 09/29/20 07:00 106 I & O 09/30/20 07:00 Intake Total 125 ml Output Total 2050 ml Balance -1925 ml Height & Weight Height: '" Weight: lbs. oz. kg; 39.60 BMI Method: General Appearance: No Apparent Distress, WD/WN, Obese HEENT: PERRL/EOMI, Normal ENT Inspection Neck: Non Tender, Supple Respiratory: Chest Non Tender, No Accessory Muscle Use, No Respiratory Distress, Accessory Muscle Use Cardiovascular: No Gallop, Tachycardia Capillary Refill: Less Than 3 Seconds Gastrointestinal: non tender, soft Extremity: Non Tender, Pedal Edema Neurologic/Psychiatric: Alert, Disoriented Skin: Normal Color Lymphatic: No Adenopathy Results Lab Laboratory Tests 09/28/20 06:05 09/29/20 05:20 09/30/20 02:18 Assessment/Plan Assessment/Plan s/p Acute Respiratory failure with ARDS-- Now resolved -Pt is only requiring 3 liter NC -MRSA is negative -Dr. Crespo attempted central line yesterday however unable to obtain -obtain PICC line today -Herpes Ab is positive - Acyclovir - HIV -negative -CXR - reviewed and shows improvement. -Pt is now off vent and currently on Vapotherm. -speech therapy for swallow eval -- started dysphagia diet - Zyvox, zosyn, acyclovir, and flagyl -S/p Diflucan -Fi02 has improved to 30% -D/C proning -Repeat COVID is negative. D/C Remdesivir -Influenza negative -Respiratory viral panel - pending Copious amounts of diarrhea -Pt has rectal tube currently per EICU -CDiff is negative x 2 -Stool is a yellow color r/o fistula -Consulted Dr. Crespo. -Dr. Crespo signed off -Stool cultures pending Pancreatitis -Check US of abdomen. Hypoglycemia --IVF currently D5W at 100cc/hr ICU psychosis/ psychosis -Continue to monitor -Sitter at bedside. Weakness -Continue PT/OT PNA with sepsis- presumptive COVID- sputum shows candidiasis -Retest for COVID is negative - Diflucan -Justice cultures - reviewed -Continue Zosyn, and Diflucan s/p azithromycin -MRSA pending - off Levophed Diarrhea - CDIFF toxin negative x 2 -Flagyl Hypernatremia with hypoglycemia -Change IVF to D5W Hypokalemia -Replace Anemia -s/p 1 unit of PRBC typed and crossed. -Monitor Acute renal failure with metabolic acidosis -CR improved -IVF - Will keep at 125 -Monitor Metabolic acidosis -Improving Pt is not requiring oxygen and is doing well from pulmonary standpoint. I am going to sign off please call with any questions or concerns. JERMAIN WALSH DO Sep 30, 2020 04:54
[2020-09-30] MEDS ORDERED: MAGNESIUM 1 GM/100 ML IVPB 200 ML IV ONE (05:04)
[2020-09-30] MEDS: POTASSIUM CL 10MEQ/50ML IVPB 50 ML IV SCH ×8 (05:21→12:50)
[2020-09-30] MEDS: PIPERACILLIN/TAZOBACTAM (BULK) 4.5 GM in NS (IVPB) 100 ML IV SCH ×3 (05:22→21:09)
[2020-09-30] MEDS: MAGNESIUM 1 GM/100 ML IVPB 100 ML IV SCH ×2 (05:22→05:27)
[2020-09-30] MEDS: inSUlin ASPART (NovoLOG) 1 UNIT/0.01 ML (CHARGE PER UNIT) SQ SCH ×4 (05:26→23:19)
[2020-09-30] MEDS: ACYCLOVIR INJECTION 500 MG in NS (IVPB) 100 ML IV SCH ×3 (05:26→21:06)
[2020-09-30] MEDS: metroNIDAZOLE 500MG/100ML IVPB 100 ML IV SCH ×3 (05:26→21:05)
[2020-09-30] MEDS: POTASSIUM CHLORIDE IV SCH ×2 (07:42→19:01)
[2020-09-30] MEDS: DEXTROSE 10% IV SCH ×2 (07:42→19:01)
[2020-09-30] MEDS: risperiDONE 0.25 MG (RisperDAL) TAB PO SCH ×2 (08:13→21:07)
[2020-09-30] MEDS: meTOprolol TARTRATE 25 MG (LOPRESSOR) TABLET PO SCH ×2 (08:13→21:07)
[2020-09-30] MEDS: PANTOPRAZOLE 40 MG (PROTONIX) VIAL IV SCH (08:14)
--- NOTE | 2020-09-30 08:53 | Diagnostic Imaging Report ---
PROCEDURE: Ultrasound abdomen complete. TECHNIQUE: Multiple Real-time grayscale images were obtained of the abdomen in various projections. INDICATION: Pancreatitis and post infection. FINDINGS: The liver is normal in size at 14 cm. No discrete liver mass is detected. The portal vein is patent and shows normal direction of flow. The gallbladder does contain some sludge. No stones are seen. No wall thickening or biliary ductal dilatation is seen. The pancreas is poorly visualized due to overlying bowel gas. The spleen is normal in size at 9.4 cm. The aorta is nonaneurysmal. The IVC is patent. The kidneys are without calculus or hydronephrosis. Trace ascites is present. IMPRESSION: 1. Gallbladder sludge. No cholelithiasis or evidence of acute cholecystitis is detected. 2. Poorly visualized pancreas due to overlying bowel gas. 3. Trace ascites. Dictated by: Dictated on workstation # [id number]
[2020-09-30] MEDS: LINEZOLID IVPB 300 ML IV SCH ×2 (09:14→21:05)
--- NOTE | 2020-09-30 09:27 | Progress Note - Surgery ---
ELADIO HARGROVE MED STUDENT 09/30/20 0926: Subjective Date Seen by a Provider: Sep 30, 2020 Time Seen by a Provider: 07:30 Subjective/Events-last exam Pt's mentation is improved today and is able to answer questions and follow commands. Per nursing staff, peripheral IV's were placed in right AC and right hand and they will work on placing PICC line today. Focused Exam Lactate Level 09/29/20 08:40: Lactic Acid Level 1.10 Objective Exam Vital Signs Date Time Temp Pulse Resp B/P (MAP) Pulse Ox O2 Delivery O2 Flow Rate FiO2 09/30/20 08:01 37.3 108 16 153/105 (121) 97 Room Air 09/30/20 03:12 37.0 101 30 126/77 (93) 94 Room Air 09/30/20 02:58 95 Room Air 0.00 09/30/20 01:00 109 09/29/20 23:11 37.0 89 32 117/65 (82) 98 Room Air 09/29/20 21:00 98 Nasal Cannula 0.50 09/29/20 20:53 96 Nasal Cannula 3.00 09/29/20 20:38 36.4 85 27 104/64 (77) 98 Nasal Cannula 2.00 09/29/20 19:00 97 09/29/20 17:00 37.0 96 32 127/77 (94) 97 Nasal Cannula 2.00 09/29/20 12:59 110 09/29/20 11:40 37.0 108 28 137/89 (105) 99 Nasal Cannula 2.00 l I & O 09/30/20 06:59 Intake Total 125 ml Output Total 3600 ml Balance -3475 ml Capillary Refill : Less Than 3 Seconds General Appearance: No Apparent Distress, WD/WN, Obese HEENT: PERRL/EOMI, Normal ENT Inspection Neck: Non Tender, Supple, Other (site of prior central line on left neck is bandaged; soft and nontender with no hematoma palpated) Respiratory: Chest Non Tender, Other (tachypnea) Cardiovascular: No Gallop, Tachycardia, Other (anasarca is improved) Gastrointestinal: non tender, soft Extremity: Non Tender, Pedal Edema Neurologic/Psychiatric: Alert, Disoriented, Other (able to answer basic questions and follow commands) Skin: Normal Color, Warm/Dry Lymphatic: No Adenopathy Results Lab Laboratory Tests 09/29/20 12:20: Glucometer 88 09/29/20 18:41: Glucometer 118H 09/29/20 22:56: Glucometer 92 09/30/20 02:18: White Blood Count 8.3, Red Blood Count 3.12L, Hemoglobin 9.0#L, Hematocrit 28L, Mean Corpuscular Volume 89, Mean Corpuscular Hemoglobin 29, Mean Corpuscular Hemoglobin Concent 32, Red Cell Distribution Width 14.1, Platelet Count 237, Mean Platelet Volume 9.9, Immature Granulocyte % (Auto) 2, Neutrophils (%) (Auto) 58, Lymphocytes (%) (Auto) 27, Monocytes (%) (Auto) 7, Eosinophils (%) (Auto) 6, Basophils (%) (Auto) 1, Neutrophils # (Auto) 4.8, Lymphocytes # (Auto) 2.2, Monocytes # (Auto) 0.6, Eosinophils # (Auto) 0.5H, Basophils # (Auto) 0.1, Immature Granulocyte # (Auto) 0.2H, Sodium Level 136, Potassium Level 2.8L, Chloride Level 105, Carbon Dioxide Level 19L, Anion Gap 12, Blood Urea Nitrogen 8, Creatinine 1.08, Estimat Glomerular Filtration Rate > 60, BUN/Creatinine Ratio 7, Glucose Level 95, Calcium Level 7.3L, Corrected Calcium 8.5, Phosphorus Level 3.2, Magnesium Level 1.7, Total Bilirubin 0.4, Aspartate Amino Transf (AST/SGOT) 30, Alanine Aminotransferase (ALT/SGPT) 13, Alkaline Phosphatase 61, Ammonia 41H, Total Protein 5.0L, Albumin 2.5L, Amylase Level 148H, Lipase 335H Microbiology 09/26/20 Catheter Tip Culture - Preliminary, Resulted No growth 09/26/20 Catheter Tip Culture - Final, Complete Staphylococcus warneri Staphylococcus hominis 09/26/20 C. difficile GDH Antigen & Toxins - Final, Complete 09/22/20 MRSA Screen - Final, Complete MRSA not isolated 09/20/20 Urine Culture - Final, Complete NO GROWTH 09/19/20 Gram Stain - Final, Complete 09/19/20 Anaerobic Culture - Final, Complete No anaerobes isolated 09/19/20 Surgical Culture - Final, Complete No growth Assessment/Plan Assessment/Plan Assessment/Plan s/p induction of labor s/p respiratory failure ARF and anasarca diarrhea poor venous access questionable colovesicular fistula continue medical management Indigo blue into bladder, no dye seen within the rectal tube reported by nursing. Feel the fistula is unlikely but could get contrast ct to further evaluate, could also consider cystoscopy (urology) Patient with poor IV access PICC line removed, central line attempted yesterday without success, but site has no palpable hematoma today two peripheral lines placed since yesterday with plan for PICC line placement today continue to monitor Clinical Quality Measures DVT/VTE Risk/Contraindication: Risk Factor Score Per Nursin RFS Level Per Nursing on Admit: 1=Low/No VTE PPX MEHRANCINDY Briseyda DO 10/01/20 1604: Subjective Subjective/Events-last exam Patient with no significant difference from yesterday. Patient left neck inspected no signs of any hematoma or change to the left neck. Patient answer some simple questions and can follow simple basic commands. Objective Exam General Appearance: No Apparent Distress, WD/WN, Obese HEENT: Normal ENT Inspection Neck: Non Tender, Supple, Other (site of prior central line on left neck is bandaged; soft and nontender with no hematoma palpated) Respiratory: Chest Non Tender, No Accessory Muscle Use, No Respiratory Distress Cardiovascular: Regular Rate, Rhythm, No Gallop Gastrointestinal: non tender, soft Extremity: Non Tender, Pedal Edema Neurologic/Psychiatric: Alert, Disoriented, Other (able to answer basic questions and follow commands) Skin: Normal Color, Warm/Dry Lymphatic: No Adenopathy Assessment/Plan Assessment/Plan Assessment/Plan s/p induction of labor s/p respiratory failure ARF and anasarca diarrhea poor venous access questionable colovesicular fistula continue medical management Indigo blue into bladder, no dye seen within the rectal tube reported by nursing. Feel the fistula is unlikely but could get contrast ct to further evaluate, could also consider cystoscopy (urology) Patient with poor IV access PICC line removed, central line attempted yesterday without success, arterial placement, removed and pressure held no site has no palpable hematoma today or any concerning finding on exam two peripheral lines placed since yesterday with plan for PICC line placement today continue to monitor Supervisory-Addendum Brief Verification & Attestation Participated in pt care: history, MDM, physical Personally performed: exam, history, MDM, supervision of care Care discussed with: Medical Student Procedures: n/a Results interpretation: Verified all documentation Verification and Attestation of Medical Student E/M Service A medical student performed and documented this service in my presence. I reviewed and verified all information documented by the medical student and made modifications to such information, when appropriate. I personally performed the physical exam and medical decision making. Cindy Crespo, Sep 30, 2020,16:04 ELADIO HARGROVE MED STUDENT Sep 30, 2020 09:26 CINDY CRESPO DO Oct 01, 2020 16:04
--- NOTE | 2020-09-30 09:57 | NUR ---
PHYSICAL THERAPY WITH PATIENT. PATIENT UNCOOPERATIVE. PATIENT MOVED TO CHAIR. WILL CONTINUE TO MONITOR.
--- NOTE | 2020-09-30 10:33 | Physical Therapy Daily Note ---
PT Daily Note-Current Subjective Patient continues to be confused and unaware of safety concerns. Patient is impulsive with all mobility. Mental Status Patient Orientation: Confused Attachments: Luna Catheter, IV rectal tube Transfers SCALE: Activities may be completed with or without assistive devices. 0-Ofkehoxnoa-twcbzkc completes the activity by him/herself with no assistance from a helper. 5-Set-up or Clean-up Assistance-helper sets up or cleans up; patient completes activity. [place] assists only prior to or following the activity. 4-Supervision or Touching Assistance-helper provides verbal cues and/or touching/steadying and/or contact guard assistance as patient completes activity. Assistance may be provided throughout the activity or intermittently. 3-Partial/Moderate Assistance-helper does LESS THAN HALF the effort. [place] lifts, holds or supports trunk or limbs, but provides less than half the effort. 2-Substantial/Maximal Assistance-helper does MORE THAN HALF the effort. [place] lifts or holds trunk or limbs and provides more than half the effort. 6-Hxuizerku-cpbdtg does ALL the effort. Patient does none of the effort to complete the activity. Or, the assistance of 2 or more helpers is required for the patient to complete the activity. If activity was not attempted, code reason: 7-Patient Refused. 9-Not Applicable-not attempted and the patient did not perform the activity before the current illness, exacerbation or injury. 10-Not Attempted due to Environmental Limitations-(lack of equipment, weather restraints, etc.). 88-Not Attempted due to Medical Conditions or Safety Concerns. Lying to Sitting/Side of Bed(Q: 5 Sit to Stand (QC): 4 Chair/Cpe-zw-Mkaoq Xfer(QC): 3 patient is impulsive to perform mobility and is unaware of all attachments. Weight Bearing Right Lower Extremity: Right Full Weight Bearing Left Lower Extremity: Left Full Weight Bearing Gait Training Does the Patient Walk?: Yes Distance: 40' x 3 Walk 10 feet (QC): 3 patient refused to use FWW and would push it away. Luna and rectal tube bag hanging on FWW. PT advanced FWW while patient ambulated with PT utilizing gait belt. Patient did have 3 episodes of retropulsion with PT correct. Assessment Patient improving with strength and mobility, however, patient is very confused and demonstrates diminished safety awareness. Patient continues to have a sitter for safety. PT Short Term Goals Short Term Goals Time Frame: Oct 05, 2020 Roll Left & Right: 3 Sit to lyin Lying to sitting on side of be: 3 Sit to stand: 3 Chair/mvm-qs-oriod transfer: 3 Toilet transfer: 3 Walk 10 feet: 3 PT Care Home Goals Psychiatric Technician Assistant Goals PT Psychiatric Technician Assistant Goals Time Frame: Oct 12, 2020 Roll Left & Right (QC): 6 Sit to Lying (QC): 6 Lying-Sitting on Side/Bed(QC): 6 Sit to Stand (QC): 6 Chair/Kod-se-Grmru Xfer(QC): 6 Toilet Transfer (QC): 6 Car Transfer (QC): 6 Does the Patient Walk: Yes Walk 10 feet (QC): 6 Walk 50ft with 2 Turns (QC): 6 Walk 150 ft (QC): 6 PT Plan Treatment/Plan Treatment Plan: Continue Plan of Care Treatment Plan: Bed Mobility, Education, Functional Activity Hair, Functional Strength, Gait, Safety, Therapeutic Exercise, Transfers Treatment Duration: Oct 12, 2020 Frequency: 6 times per week Estimated Hrs Per Day: .25 hour per day Patient and/or Family Agrees t: Yes Time/GCodes Time In: 931 Time Out: 1000 Total Billed Treatment Time: 29 Total Billed Treatment 1 visit FA x 2 29 min YINA GARCIA PT Sep 30, 2020 10:33
--- NOTE | 2020-09-30 12:02 | Occupational Ther Daily Note ---
OT Current Status-Daily Note Subjective Nursing agrees to OT tx. Pt in bed, sitter present. Pt agrees to tx. Sitter is relieved. Pt alert/ oriented to person/ place. Pt very confused/ possibly hallucinating stating her sister is on the bus and needs money. Pt continues staring out the window (blinds are closed) stating her sister is there. Pt is very concerned that hospital services cost money and she won't have enough for her sister. Mental Status/Objective Patient Orientation: Person, Confused, Place Attachments: Luna Catheter, IV, Other-See Comments (rectal tube) ADL-Treatment Therapy Code Descriptions/Definitions Functional Ashe Measure: 0=Not Assessed/NA 4=Minimal Assistance 1=Total Assistance 5=Supervision or Setup 2=Maximal Assistance 6=Modified Ashe 3=Moderate Assistance 7=Complete IndependenceSCALE: Activities may be completed with or without assistive devices. 6-Dylyjtnknp-riummsa completes the activity by him/herself with no assistance from a helper. 5-Set-up or Clean-up Assistance-helper sets up or cleans up; patient completes activity. [place] assists only prior to or following the activity. 4-Supervision or Touching Assistance-helper provides verbal cues and/or touching/steadying and/or contact guard assistance as patient completes activity. Assistance may be provided throughout the activity or intermittently. 3-Partial/Moderate Assistance-helper does LESS THAN HALF the effort. [place] lifts, holds or supports trunk or limbs, but provides less than half the effort. 2-Substantial/Maximal Assistance-helper does MORE THAN HALF the effort. [place] lifts or holds trunk or limbs and provides more than half the effort. 2-Ovgihnjbq-nfqqbl does ALL the effort. Patient does none of the effort to complete the activity. Or, the assistance of 2 or more helpers is required for the patient to complete the activity. If activity was not attempted, code reason: 7-Patient Refused. 9-Not Applicable-not attempted and the patient did not perform the activity before the current illness, exacerbation or injury. 10-Not Attempted due to Environmental Limitations-(lack of equipment, weather restraints, etc.). 88-Not Attempted due to Medical Conditions or Safety Concerns. Eating (QC): 6 (drinks with IND.) Bathing Location: L Arm, R Arm, L Upper Leg, R Upper Leg Shower/Bathe Self (QC): 4 (pt does not complete all areas due to decreased awareness and distractibility. Completes UEs and LEs only) Upper Body Dressing (QC): 7 (denies, continues to deny with encouragement to wash up/ new gown) On/Off Footwear: 2 (max A doffing/ donning. Pt EOB and reaches toward socks, quickly comes upright and says, "Whew!" When asked if dizzy pt does not answer.) Other Treatment Pt reaches EOB from supine with SBA. Pt completes ADLs as outlined above EOB, cues for redirection. Pt unable to be redirected. Pt requires max encouragement for standing to reach HOB. Stands with min Ax2. Side steps 1x, pt has decreased balance. Returns to sit with encouragement. Max A to return to supine with max A x2 for HOB. Pt left with HOB elevated, pt's food in front of pt while drinking and sitter comes back in. All needs met. Education OT Patient Education: Correct positioning, Modified ADL techniques, Purpose of tx/functional activities, Safety issues, Transfer techniques Teaching Recipient: Patient Teaching Methods: Demonstration, Discussion Response to Teaching: Unable to Return Demonstration, Unable to Comprehend, Reinforcement Needed OT Short Term Goals Short Term Goals Time Frame: Oct 10, 2020 Eatin Oral hygiene: 3 Upper body dressin OT Shelter Goals Shelter Goals Time Frame: Oct 24, 2020 Eating (QC): 4 Oral Hygiene (QC): 4 Toileting Hygiene (QC): 3 Shower/Bathe Self (QC): 3 Upper Body Dressing (QC): 5 Lower Body Dressing (QC): 4 On/Off Footwear (QC): 4 Additional Goals: 1-Demonstrate ADL Tasks, 2-Verbalize Understanding, 3- ImproveStrength/Hair 1=Demonstrate adherence to instructed precautions during ADL tasks. 2=Patient will verbalize/demonstrate understanding of assistive devices/modifications for ADL. 3=Patient will improve strength/tolerance for activity to enable patient to perform ADL's. OT Education/Plan Problem List/Assessment Assessment: Decreased Activ Tolerance, Decreased Safety Aware, Decreased UE Strength, Dependent Transfers, Edema (pitting dorsum of feet), Impaired Bed Mobility, Impaired Cognition, Impaired Funct Balance, Impaired I ADL's, Impaired Self-Care Skills Discharge Recommendations Plan/Recommendations: Continue POC Treatment Plan/Plan of Care Treatment,Training & Education: Yes Patient would benefit from OT for education, treatment and training to promote independence in ADL's, mobility, safety and/or upper extremity function for ADL's. Plan of Care: ADL Retraining, Functional Mobility, UE Funct Exercise/Act Treatment Duration: Oct 24, 2020 Frequency: 5 times per week Estimated Hrs Per Day: .25 hour per day Agreement: Yes Rehab Potential: Fair Time/GCodes Start Time: 11:18 Stop Time: 11:54 Total Time Billed (hr/min): 36 Billed Treatment Time 1, ADL 2 (36) MARIO PRESSLEY OTR Sep 30, 2020 12:02
--- NOTE | 2020-09-30 12:02 | Progress Note - Hospitalist ---
CAROLINA MTZ MED STUDENT 09/30/20 1202: Subjective HPI/CC On Admission Date Seen by Provider: Sep 30, 2020 Time Seen by Provider: 08:00 Pt is a 20yoCF who was admitted to L&D for induction at 40.3wga due to being post dates. Induction was complicated by maternal fever and subsequent loss of variability in FHT and was taken for emergent . Overnight she developed cough and hypoxia as well and was transferred to the ICU. She reports she is feeling better now that she has a nonrebreather on. Her cough started abruptly this morning and her tmax was 40.1 last night. Subjective/Events-last exam Patient was admitted after Emergent on 09/20 after induction was complicated by maternal fever and loss of variability on FHT. Cough and hypoxia necessitated ICU transfer, intubation and ventilation on 09/21. She was COVID negative after multiple tests. She was extubated on 09/25. Patient has been weak and confused since. 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 Arterial catheter cultur e from 09/26 grew Staphylococcus hominis and Staphylococcus warneri. She is on Linezolid, Metronidazole, and Acyclovir. She was evaluated for colovesicular fistula due to very watery diarrhea, which was found to be negative with injecting dye into the bladder. Surgical note recommends cystoscopy. She was noted to have a fall over the weekend. She is confused on exam today. Ammonia levels are elevated today at 41. Amylase and Lipase are also elevated at 148 and 335 respectively. Abdominal US showed poorly visualized pancreas due to bowel gas. She has a 1 on 1 due to her current condition. Central line was attempted yesterday without success. Plan to attempt PICC line today. IV access is currently in right AC and wrist. Focused Exam Lactate Level 09/29/20 08:40: Lactic Acid Level 1.10 Objective Exam Vital Signs Vital Signs Date Time Temp Pulse Resp B/P (MAP) Pulse Ox O2 Delivery O2 Flow Rate FiO2 09/30/20 09:00 97 Room Air 09/30/20 08:01 37.3 108 16 153/105 (121) 09/30/20 02:58 0.00 09/27/20 21:30 32 Capillary Refill : Less Than 3 Seconds General Appearance: Anxious HEENT: No Scleral Icterus (L), No Scleral Icterus (R) Neck: Non Tender, Supple Respiratory: Chest Non Tender, Lungs Clear, Normal Breath Sounds, No Accessory Muscle Use, No Respiratory Distress Cardiovascular: Regular Rate, Rhythm, No Murmur, Normal Peripheral Pulses, Tachycardia Extremity: Normal Inspection, Pedal Edema Neurologic/Psychiatric: Alert, No Motor/Sensory Deficits, Disoriented Skin: Normal Color Results/Procedures Lab Laboratory Tests 09/30/20 02:18 Patient resulted labs reviewed. Imaging: Reviewed Imaging Report Assessment/Plan Assessment and Plan Assess & Plan/Chief Complaint s/p respiratory failure Persistent confusion of uncertain etiology s/p induction of labor with emergent Disability due to illness Acute renal failure Hypokalemia R/o colovesicular fistula Tachycardia Elevated amylase and lipase Elevated ammonia Plan No longer on vent, continue to monitor O2 Continue to monitor confusion D10W and KCl for hypokalemia Continue PT for mobility and safety concerns Re-establish IV access with PICC line, general surgery already made aware General surgery recommends cystoscopy to r/o colovesicular fistula Repeat amylase, lipase, consider repeat abdominal US Clinical Quality Measures DVT/VTE Risk/Contraindication: Risk Factor Score Per Nursin RFS Level Per Nursing on Admit: 1=Low/No VTE PPX MELLISSA WEBER DO 10/01/20 0436: Subjective Subjective/Events-last exam Pt needs one-on-one to prevent falls and agitation Hgb stable at 9.0 Potassium 2.8 and we are replacing that BP 153/105 and remains tachycardic at 106 Central lines was attempted yesterday but entered the carotid artery that was managed in the cleaning laborer Ultrasound done for increased ammonia levels with amylase and lipase slight elevation Very complex case Pt remains confused Review of Systems General: Fatigue Neurological: Confusion Objective Exam General Appearance: No Apparent Distress, WD/WN, Anxious, Chronically ill Respiratory: Lungs Clear Cardiovascular: Tachycardia Neurologic/Psychiatric: Alert, Depressed Affect, Disoriented Assessment/Plan Assessment and Plan Assess & Plan/Chief Complaint Supportive care Monitor labs Appreciate all consultants Supervisory-Addendum Brief Verification & Attestation Participated in pt care: history, MDM, physical Personally performed: exam, history, MDM, supervision of care Care discussed with: Medical Student Procedures: n/a Results interpretation: Verified all documentation Verification and Attestation of Medical Student E/M Service A medical student performed and documented this service in my presence. I reviewed and verified all information documented by the medical student and made modifications to such information, when appropriate. I personally performed the physical exam and medical decision making. Mellissa Weber, Oct 01, 2020,04:36 CAROLINA MTZ MED STUDENT Sep 30, 2020 12:02 MELLISSA WEBER DO Oct 01, 2020 04:36
[2020-09-30] MEDS: APAP 325 MG/10.15 ML LIQ (TYLENOL) UDC PO PRN (12:18)
[2020-09-30] MEDS ORDERED: LORazepam INJ 2 MG/ML (ATIVAN) VIAL ONE (12:32)
[2020-09-30] MEDS: LORazepam INJ 2 MG/ML (ATIVAN) VIAL IVP PRN ×2 (14:48→21:52)
[2020-09-30 17:44] LABS: CHLORIDE 111 MMOL/L (98-107); POTASSIUM 3.2 MMOL/L (3.6-5.0)
[2020-09-30 17:45] LABS: SODIUM 142 MMOL/L (135-145)
[2020-09-30 17:46] LABS: CALCIUM 7.4 MG/DL (8.5-10.1); GLUCOSE 86 MG/DL (70-105)
[2020-09-30 17:48] LABS: CARBON DIOXIDE 19 MMOL/L (21-32)
[2020-09-30 17:50] LABS: CREATININE SERUM 0.96 MG/DL (0.60-1.30); GFR ESTIMATED > 60
[2020-09-30 17:51] LABS: BUN/CREATININE RATIO 4
[2020-09-30] MEDS: HALOPERIDOL 5 MG/ML (HALDOL) VIAL IM PRN (22:47)
[2020-10-01] VITALS (7 sets, daily range): BP systolic 133–139; BP diastolic 63–99
[2020-10-01] MEDS: RT-ALBUTEROL INHALER HFA (VENTOLIN HFA) 18 GM IH SCH ×4 (01:21→23:11)
[2020-10-01] MEDS: LORazepam INJ 2 MG/ML (ATIVAN) VIAL IVP PRN ×3 (02:32→22:50)
[2020-10-01 04:27] LABS: HEMOGLOBIN 8.4 g/dL (11.5-16.0); MEAN PLATELET VOLUME 10.3 fL (9.0-12.2); WHITE BLOOD COUNT 6.4 10^3/uL (4.3-11.0)
[2020-10-01 04:37] LABS: CHLORIDE 112 MMOL/L (98-107); POTASSIUM 3.3 MMOL/L (3.6-5.0); SODIUM 143 MMOL/L (135-145)
[2020-10-01 04:38] LABS: CALCIUM 7.4 MG/DL (8.5-10.1)
[2020-10-01 04:39] LABS: GLUCOSE 89 MG/DL (70-105)
[2020-10-01 04:41] LABS: CARBON DIOXIDE 18 MMOL/L (21-32)
[2020-10-01 04:43] LABS: CREATININE SERUM 0.95 MG/DL (0.60-1.30); GFR ESTIMATED > 60; PHOSPHORUS 3.9 MG/DL (2.3-4.7)
[2020-10-01 04:44] LABS: BUN/CREATININE RATIO 3
[2020-10-01 04:45] LABS: MAGNESIUM 1.8 MG/DL (1.6-2.4)
[2020-10-01 04:50] LABS: ALBUMIN 2.7 GM/DL (3.2-4.5)
[2020-10-01 04:53] LABS: TOTAL PROTEIN 5.3 GM/DL (6.4-8.2)
[2020-10-01 04:55] LABS: BILIRUBIN,TOTAL 0.2 MG/DL (0.1-1.0)
[2020-10-01 04:58] LABS: BILIRUBIN,DIRECT 0.2 MG/DL (0.0-0.3)
[2020-10-01] MEDS: inSUlin ASPART (NovoLOG) 1 UNIT/0.01 ML (CHARGE PER UNIT) SQ SCH ×3 (05:01→16:56)
[2020-10-01] MEDS ORDERED: PIPERACILLIN/TAZO 4.5 GM VIAL (ZOSYN) IV ONE (05:10)
[2020-10-01] MEDS ORDERED: NS (IVPB) 100 ML ONE (05:11)
[2020-10-01] MEDS: ACYCLOVIR INJECTION 500 MG in NS (IVPB) 100 ML IV SCH ×3 (05:20→22:50)
[2020-10-01] MEDS: PIPERACILLIN/TAZOBACTAM (BULK) 4.5 GM in NS (IVPB) 100 ML IV SCH (05:21)
[2020-10-01] MEDS: DEXTROSE 10% IV SCH ×3 (05:57→20:44)
[2020-10-01] MEDS: POTASSIUM CHLORIDE IV SCH ×3 (05:57→20:44)
[2020-10-01] MEDS: POTASSIUM CL 10MEQ/50ML IVPB 50 ML IV SCH ×8 (06:10→13:52)
[2020-10-01] MEDS: LINEZOLID IVPB 300 ML IV SCH ×2 (08:16→21:30)
[2020-10-01] MEDS: risperiDONE 0.25 MG (RisperDAL) TAB PO SCH ×2 (08:17→21:30)
[2020-10-01] MEDS: meTOprolol TARTRATE 25 MG (LOPRESSOR) TABLET PO SCH ×2 (08:17→21:30)
[2020-10-01] MEDS: PANTOPRAZOLE 40 MG (PROTONIX) VIAL IV SCH (08:17)
--- NOTE | 2020-10-01 08:58 | Progress Note - Surgery ---
ELADIO HARGROVE MED STUDENT 10/01/20 0858: Subjective Date Seen by a Provider: Oct 01, 2020 Time Seen by a Provider: 07:00 Subjective/Events-last exam Pt confused and has a sitter in the room. PICC line was placed on the right yesterday. Pt shakes her head no when asked if she needs anything or has any pain. Hgb today is 9.8 down from 11.4 yesterday. Focused Exam Lactate Level 09/29/20 08:40: Lactic Acid Level 1.10 Objective Exam Vital Signs Date Time Temp Pulse Resp B/P (MAP) Pulse Ox O2 Delivery O2 Flow Rate FiO2 10/01/20 07:53 37.1 99 29 139/89 (106) 96 Room Air 10/01/20 07:21 102 10/01/20 03:29 37.0 100 22 135/80 (98) 98 Room Air 10/01/20 01:21 94 Room Air 10/01/20 01:00 90 09/30/20 23:59 37.9 92 14 139/94 (109) 98 Room Air 09/30/20 21:15 94 Room Air 09/30/20 21:00 95 Room Air 09/30/20 19:35 37.8 96 14 150/93 (112) 96 Room Air 09/30/20 19:00 98 09/30/20 16:16 37.4 96 22 118/85 (96) 98 Room Air 09/30/20 16:00 95 20 118/85 (96) Room Air 09/30/20 12:51 37.2 09/30/20 12:35 114 09/30/20 12:18 37.9 09/30/20 12:00 37.9 101 18 147/106 (120) 99 Room Air 09/30/20 09:00 97 Room Air I & O 10/01/20 07:00 Intake Total 625 ml Output Total 7275 ml Balance -6650 ml Capillary Refill : Less Than 3 Seconds General Appearance: No Apparent Distress, WD/WN HEENT: PERRL/EOMI, Normal ENT Inspection, Other (site of prior central line on left is nontender and without palpable hematoma) Neck: Normal Inspection, Supple Respiratory: Chest Non Tender, Other (tachypneic) Cardiovascular: No Murmur, Tachycardia Gastrointestinal: non tender, soft Extremity: Normal Inspection, Other (edema improved) Neurologic/Psychiatric: Alert, Disoriented, Other (answers yes/no questions by shaking or nodding head) Skin: Normal Color, Warm/Dry Lymphatic: No Adenopathy Results Lab Laboratory Tests 09/30/20 11:42: Glucometer 79 09/30/20 17:15: Sodium Level 142, Potassium Level 3.2L, Chloride Level 111H, Carbon Dioxide Level 19L, Anion Gap 12, Blood Urea Nitrogen 4L, Creatinine 0.96, Estimat Glomerular Filtration Rate > 60, BUN/Creatinine Ratio 4, Glucose Level 86, Calcium Level 7.4L 09/30/20 18:25: Glucometer 96 09/30/20 22:47: Glucometer 87 10/01/20 04:01: White Blood Count 6.4, Red Blood Count 2.91L, Hemoglobin 8.4L, Hematocrit 26L, Mean Corpuscular Volume 89, Mean Corpuscular Hemoglobin 29, Mean Corpuscular Hemoglobin Concent 32, Red Cell Distribution Width 13.8, Platelet Count 236, Mean Platelet Volume 10.3, Sodium Level 143, Potassium Level 3.3L, Chloride Level 112H, Carbon Dioxide Level 18L, Anion Gap 13, Blood Urea Nitrogen 3L, Creatinine 0.95, Estimat Glomerular Filtration Rate > 60, BUN/Creatinine Ratio 3, Glucose Level 89, Calcium Level 7.4L, Phosphorus Level 3.9, Magnesium Level 1.8, Total Bilirubin 0.2, Direct Bilirubin 0.2, Indirect Bilirubin 0.0, Aspartate Amino Transf (AST/SGOT) 38H, Alanine Aminotransferase (ALT/SGPT) 16, Alkaline Phosphatase 68, Total Protein 5.3L, Albumin 2.7L Microbiology 09/29/20 Catheter Tip Culture - Preliminary, Resulted No growth 09/27/20 - Preliminary, Resulted 09/26/20 C. difficile GDH Antigen & Toxins - Final, Complete 09/22/20 MRSA Screen - Final, Complete MRSA not isolated 09/20/20 Urine Culture - Final, Complete NO GROWTH 09/19/20 Gram Stain - Final, Complete 09/19/20 Anaerobic Culture - Final, Complete No anaerobes isolated 09/19/20 Surgical Culture - Final, Complete No growth Assessment/Plan Assessment/Plan Assessment/Plan s/p induction of labor s/p respiratory failure ARF and anasarca-improved diarrhea poor venous access anemia continue medical management site of prior central line attempt has no palpable hematoma PICC line placed yesterday continue to monitor Clinical Quality Measures DVT/VTE Risk/Contraindication: Risk Factor Score Per Nursin RFS Level Per Nursing on Admit: 1=Low/No VTE PPX CINDY CRESPO DO 10/01/20 1611: Subjective Subjective/Events-last exam Patient still with some confusion. Does answer some questions appropriately and follows some directions. Still with rectal tube brownish liquid draining Objective Exam General Appearance: No Apparent Distress, WD/WN HEENT: Normal ENT Inspection, Other (site of prior central line on left is nontender and without palpable hematoma) Neck: Normal Inspection, Supple Respiratory: Chest Non Tender, No Accessory Muscle Use, No Respiratory Distress Cardiovascular: Regular Rate, Rhythm, No JVD Gastrointestinal: non tender, soft Extremity: Normal Inspection, Other (edema improved) Neurologic/Psychiatric: Alert, Disoriented, Other (Answer some simple questions, follows simple demands.) Skin: Normal Color, Warm/Dry Lymphatic: No Adenopathy Assessment/Plan Assessment/Plan Assessment/Plan s/p induction of labor s/p respiratory failure ARF and anasarca-improved diarrhea poor venous access anemia continue medical management site of prior central line attempt has no palpable hematoma or any other concern PICC line placed could remove rectal tube if possible no findings of colovesicular fistula, would consider previous recs when want to further investigate will sign off, call if needed. Supervisory-Addendum Brief Verification & Attestation Participated in pt care: history, MDM, physical Personally performed: exam, history, MDM, supervision of care Care discussed with: Medical Student Procedures: n/a Results interpretation: Verified all documentation Verification and Attestation of Medical Student E/M Service A medical student performed and documented this service in my presence. I reviewed and verified all information documented by the medical student and made modifications to such information, when appropriate. I personally performed the physical exam and medical decision making. Cindy Crespo, Oct 01, 2020,16:14 ELADIO HARGROVE MED STUDENT Oct 01, 2020 08:58 CINDY CRESPO DO Oct 01, 2020 16:11
[2020-10-01 09:38] LABS: AMYLASE 116 U/L (25-125)
[2020-10-01 09:46] LABS: LIPASE 248 U/L (8-78)
[2020-10-01] MEDS: ENOXAPARIN 40 MG/0.4 ML (LOVENOX) SYR SC SCH ×2 (09:56→14:08)
--- NOTE | 2020-10-01 10:46 | Progress Note - Hospitalist ---
CAROLINA MTZ MED STUDENT 10/01/20 1046: Subjective HPI/CC On Admission Date Seen by Provider: Oct 01, 2020 Time Seen by Provider: 08:15 Pt is a 20yoCF who was admitted to L&D for induction at 40.3wga due to being post dates. Induction was complicated by maternal fever and subsequent loss of variability in FHT and was taken for emergent . Overnight she developed cough and hypoxia as well and was transferred to the ICU. She reports she is feeling better now that she has a nonrebreather on. Her cough started abruptly this morning and her tmax was 40.1 last night. Subjective/Events-last exam Patient is less confused today. She does ask where she is and when she can go home, but she seems better able to hold a conversation. She reports no pain and desires to get better so she can go home. She is more aware and conversational later when checked on again. She still has a sitter due to her confusion and current status. Patient was tachypneic this AM, and it was reported from nursing that her breathing was within normal range when sleeping, but tachypneic when awake. Her breathing had slowed at later check in. Does not want to advance diet yet due to concerns of emesis. Focused Exam Lactate Level 09/29/20 08:40: Lactic Acid Level 1.10 Objective Exam Vital Signs Vital Signs Date Time Temp Pulse Resp B/P (MAP) Pulse Ox O2 Delivery O2 Flow Rate FiO2 10/01/20 10:10 94 Room Air 10/01/20 07:53 37.1 99 29 139/89 (106) 09/30/20 02:58 0.00 09/27/20 21:30 32 Capillary Refill : Less Than 3 Seconds General Appearance: Anxious, Mild Distress Neck: Non Tender, Supple Respiratory: Chest Non Tender, Lungs Clear, Accessory Muscle Use, Other (tachypneic on initial exam) Cardiovascular: Regular Rate, Rhythm, Normal Peripheral Pulses, Tachycardia Gastrointestinal: No Pulsatile Mass, Non Tender, Soft Extremity: Pedal Edema Neurologic/Psychiatric: Alert, Depressed Affect, Disoriented Skin: Normal Color, Warm/Dry Results/Procedures Lab Laboratory Tests 09/30/20 17:15 10/01/20 04:01 Patient resulted labs reviewed. Imaging: Reviewed Imaging Report Assessment/Plan Assessment and Plan Assess & Plan/Chief Complaint s/p respiratory failure Persistent confusion of uncertain etiology s/p induction of labor with emergent Disability due to illness Acute renal failure Hypokalemia R/o colovesicular fistula Tachycardia Elevated amylase and lipase Plan Stable enough to transfer to 4th floor D/c telemetry Advance diet as tolerated Monitor diarrhea and emesis concerns Continue to monitor confusion, sitter to help Continue PT for mobility and safety concerns Repeat amylase, lipase Clinical Quality Measures DVT/VTE Risk/Contraindication: Risk Factor Score Per Nursin RFS Level Per Nursing on Admit: 1=Low/No VTE PPX VAN WEBER DO 10/02/20 0554: Subjective Subjective/Events-last exam Pt actually dramatically improved from earlier this morning from medical student rounds Transferring to fourth floor Less confused Rectal a tube is still in place Clear liquid diet is tolerated Antibiotic regimen was reviewed last day of Lu Review of Systems General: Fatigue Pulmonary: Dyspnea Neurological: Confusion Objective Exam General Appearance: No Apparent Distress, WD/WN, Anxious, Chronically ill Respiratory: Chest Non Tender, Lungs Clear, Normal Breath Sounds, No Accessory Muscle Use, No Respiratory Distress Cardiovascular: Regular Rate, Rhythm, No Gallop, No JVD, No Murmur, Normal Peripheral Pulses Extremity: Pedal Edema Neurologic/Psychiatric: Alert, Oriented x3, No Motor/Sensory Deficits, Normal Mood/Affect, Depressed Affect, Disoriented Assessment/Plan Assessment and Plan Assess & Plan/Chief Complaint Improving delirium Supportive care Supervisory-Addendum Brief Verification & Attestation Participated in pt care: history, MDM, physical Personally performed: exam, history, MDM, supervision of care Care discussed with: Medical Student Procedures: n/a Results interpretation: Verified all documentation Verification and Attestation of Medical Student E/M Service A medical student performed and documented this service in my presence. I reviewed and verified all information documented by the medical student and made modifications to such information, when appropriate. I personally performed the physical exam and medical decision making. Van Weber, Oct 02, 2020,05:53 CAROLINA MTZ MED STUDENT Oct 01, 2020 10:46 VAN WEBER DO Oct 02, 2020 05:54
--- NOTE | 2020-10-01 11:16 | Occupational Ther Daily Note ---
OT Current Status-Daily Note Subjective Pt alert, lying in bed. Sitter present. Pt agrees to therapy. Pt is answering questions in clear voice. Pt to move to 4th floor today. Mental Status/Objective Patient Orientation: Person, Confused Attachments: Luna Catheter (anal catheter), IV, Telemetry ADL-Treatment Therapy Code Descriptions/Definitions Functional [place] Measure: 0=Not Assessed/NA 4=Minimal Assistance 1=Total Assistance 5=Supervision or Setup 2=Maximal Assistance 6=Modified [place] 3=Moderate Assistance 7=Complete IndependenceSCALE: Activities may be completed with or without assistive devices. 5-Plimkikmsh-knrctab completes the activity by him/herself with no assistance from a helper. 5-Set-up or Clean-up Assistance-helper sets up or cleans up; patient completes activity. [place] assists only prior to or following the activity. 4-Supervision or Touching Assistance-helper provides verbal cues and/or touching/steadying and/or contact guard assistance as patient completes activity. Assistance may be provided throughout the activity or intermittently. 3-Partial/Moderate Assistance-helper does LESS THAN HALF the effort. [place] lifts, holds or supports trunk or limbs, but provides less than half the effort. 2-Substantial/Maximal Assistance-helper does MORE THAN HALF the effort. [place] lifts or holds trunk or limbs and provides more than half the effort. 1-Ymngpaaqs-swtdzu does ALL the effort. Patient does none of the effort to complete the activity. Or, the assistance of 2 or more helpers is required for the patient to complete the activity. If activity was not attempted, code reason: 7-Patient Refused. 9-Not Applicable-not attempted and the patient did not perform the activity before the current illness, exacerbation or injury. 10-Not Attempted due to Environmental Limitations-(lack of equipment, weather restraints, etc.). 88-Not Attempted due to Medical Conditions or Safety Concerns. Other Treatment Co-treat with PT due to decreased mobility, impulsivity and manipulation of tubing. Mod A x2 for supine to EOB. CGA to sit EOB. Pt demonstrates impulsivity, is actively listening to therapists and follow directions to complete tasks safely. Assist x2 for ambulation for safety and balance issues. See PT notes for ambulation. Pt ambulated back to room and sat in recliner. Pt declined eating more food, encouraged pt and pt began to eat more. Pt is able to hold onto items and bring to mouth with close SBA, fatigues quickly and assist given. Significant decrease in edema of B hands. After therapy, pt sitting in recliner with call light/phone in room. Sitter present in room. All needs met in room. OT Short Term Goals Short Term Goals Time Frame: Oct 10, 2020 Eatin Oral hygiene: 3 Upper body dressin OT Boat Driver Goals Boat Driver Goals Time Frame: Oct 24, 2020 Eating (QC): 4 Oral Hygiene (QC): 4 Toileting Hygiene (QC): 3 Shower/Bathe Self (QC): 3 Upper Body Dressing (QC): 5 Lower Body Dressing (QC): 4 On/Off Footwear (QC): 4 Additional Goals: 1-Demonstrate ADL Tasks, 2-Verbalize Understanding, 3- ImproveStrength/Hair 1=Demonstrate adherence to instructed precautions during ADL tasks. 2=Patient will verbalize/demonstrate understanding of assistive devices/modifications for ADL. 3=Patient will improve strength/tolerance for activity to enable patient to perform ADL's. OT Education/Plan Problem List/Assessment Assessment: Decreased Activ Tolerance, Decreased Safety Aware, Decreased UE Strength, Edema, Impaired Bed Mobility, Impaired Cognition, Impaired Coordination, Impaired Funct Balance, Impaired Self-Care Skills, Restricted Funct UE ROM Discharge Recommendations Plan/Recommendations: Continue POC Treatment Plan/Plan of Care Patient would benefit from OT for education, treatment and training to promote independence in ADL's, mobility, safety and/or upper extremity function for ADL's. Plan of Care: ADL Retraining, Functional Mobility, UE Funct Exercise/Act Treatment Duration: Oct 24, 2020 Frequency: 5 times per week Estimated Hrs Per Day: .25 hour per day Agreement: Yes Rehab Potential: Fair Time/GCodes Start Time: 10:30 Stop Time: 10:44 Total Time Billed (hr/min): 14 Billed Treatment Time 1 visit-FA 1 (14 min) AMY BLAIR Oct 01, 2020 11:16
--- NOTE | 2020-10-01 12:04 | Physical Therapy Daily Note ---
PT Daily Note-Current Subjective Patient is more alert and talkative on this date. Mental Status Patient Orientation: Confused Attachments: Luna Catheter rectal tube Transfers SCALE: Activities may be completed with or without assistive devices. 2-Fgrhbconlz-tdcmqre completes the activity by him/herself with no assistance from a helper. 5-Set-up or Clean-up Assistance-helper sets up or cleans up; patient completes activity. [place] assists only prior to or following the activity. 4-Supervision or Touching Assistance-helper provides verbal cues and/or touching/steadying and/or contact guard assistance as patient completes activity. Assistance may be provided throughout the activity or intermittently. 3-Partial/Moderate Assistance-helper does LESS THAN HALF the effort. [place] lifts, holds or supports trunk or limbs, but provides less than half the effort. 2-Substantial/Maximal Assistance-helper does MORE THAN HALF the effort. [place] lifts or holds trunk or limbs and provides more than half the effort. 8-Edtdqmvjo-gavxfr does ALL the effort. Patient does none of the effort to complete the activity. Or, the assistance of 2 or more helpers is required for the patient to complete the activity. If activity was not attempted, code reason: 7-Patient Refused. 9-Not Applicable-not attempted and the patient did not perform the activity before the current illness, exacerbation or injury. 10-Not Attempted due to Environmental Limitations-(lack of equipment, weather restraints, etc.). 88-Not Attempted due to Medical Conditions or Safety Concerns. Lying to Sitting/Side of Bed(Q: 3 Sit to Stand (QC): 3 Chair/Eyz-go-Ofvyn Xfer(QC): 3 Weight Bearing Right Lower Extremity: Right Full Weight Bearing Left Lower Extremity: Left Full Weight Bearing Gait Training Does the Patient Walk?: Yes Distance: 300' Walk 10 feet (QC): 3 Walk 50 ft with 2 Turns(QC): 3 Walk 150 ft (QC): 3 Gait Assistive Device: None (LOAD DISPATCHER) slightly unsteady requiring LOAD DISPATCHER for safety. Assessment Patient is up in recliner with needs met. PT/OT cotreat due to complexity of patient status. Patient improving slowly. PT Short Term Goals Short Term Goals Time Frame: Oct 05, 2020 Roll Left & Right: 3 Sit to lyin Lying to sitting on side of be: 3 Sit to stand: 3 Chair/khn-os-pyelh transfer: 3 Toilet transfer: 3 Walk 10 feet: 3 PT Correction Goals Mds Rn Goals PT Correction Goals Time Frame: Oct 12, 2020 Roll Left & Right (QC): 6 Sit to Lying (QC): 6 Lying-Sitting on Side/Bed(QC): 6 Sit to Stand (QC): 6 Chair/Ige-tk-Qvxsx Xfer(QC): 6 Toilet Transfer (QC): 6 Car Transfer (QC): 6 Does the Patient Walk: Yes Walk 10 feet (QC): 6 Walk 50ft with 2 Turns (QC): 6 Walk 150 ft (QC): 6 PT Plan Treatment/Plan Treatment Plan: Continue Plan of Care Treatment Plan: Bed Mobility, Education, Functional Activity Hair, Functional Strength, Gait, Safety, Therapeutic Exercise, Transfers Treatment Duration: Oct 12, 2020 Frequency: 6 times per week Estimated Hrs Per Day: .25 hour per day Patient and/or Family Agrees t: Yes Time/GCodes Time In: 1030 Time Out: 1044 Total Billed Treatment Time: 14 Total Billed Treatment 1 visit FA 14 min YINA GARCIA PT Oct 01, 2020 12:04
--- NOTE | 2020-10-01 15:14 | NUR ---
"RD ASSESSMENT PMHx: no significant PMH, s/p ; PT INTERACTION: Pt was awake and pleasant during nutrition assessment. Pt states current appetite is fair. Note avg PO intake <25% meals, per chart review. Pt states following a regular diet at home, and has no issues with chewing/swallowing food. Pt states some recent issues with nausea, vomiting, constipation, and diarrhea. Note episode of emesis on 09/28, per chart review. Note last BM was 09/25, and pt not currently on bowel regimen per chart review. Note pt is s/p emergent , per chart review. ABNORMAL NUTRITION-RELATED LAB VALUES LOW: K 3.3; Ca 7.4; Pro 5.3; alb 2.7; BUN 3 HIGH: Cl 112; AST 38; Est. kcal needs: 5877-2722 kcal | 20-25 kcal/kg Est. Pro needs: 92-110 g Pro | 1.0-1.2 g Pro/kg PES STATEMENT: Inadequate oral intake (NI-2.1) related to loss of appetite, nausea, vomiting, constipation, and diarrhea, as evidenced by pt interview, and avg PO intake <25% meals. INTERVENTION: Continue with current diet order of Clear Liquid diet. Would recommend diet advancement when medically able and as tolerated. Add Ensure Clear to meals TID, for increased kcal intake. Provides 250 kcal and 8 g Pro per serving. Will continue to follow and reassess as pt needs, intake, and status change. [place]ina [place], MS RD LD"
--- NOTE | 2020-10-02 00:31 | OPERATIVE REPORT ---
DATE OF SERVICE: 09/29/2020 PREOPERATIVE DIAGNOSIS: Malpositioned central line. POSTOPERATIVE DIAGNOSIS: Malpositioned central line with distal tip in the aortic arch. PROCEDURE: Angiogram and removal of central line, which is malpositioned. SURGEON: Cindy Crespo DO INDICATIONS: The patient is a 20-year-old female who had central line placed in the left IJ by ultrasound placement. On followup chest x-ray, the central line was appeared to be malpositioned. We went to the labor service representative for further investigation. DESCRIPTION OF PROCEDURE: The left neck was prepped and draped in sterile fashion. Under fluoroscopy, the catheter was then inspected, which demonstrated going to the left side of the chest. The guidewire began to be inserted and the catheter was slightly pulled back, which was advanced in the wire. The wire and the catheter appeared to be in the aortic arch rather than the venous system. The 10 mL of contrast was injected demonstrating the catheter to be in the aortic arch. Vascular surgery was called at this point, which recommended pulling the catheter and holding pressure for 20 minutes, which the catheter was then pulled. Pressure was held for 20 minutes. No evidence of any hematoma or complication. The area was then washed and dried and sterile bandage was applied. The patient tolerated without any complications. The patient was taken back to her room in stable condition with continued monitoring. Job ID: [id number] DocumentID: [id number] Dictated Date: 10/01/2020 16:20:18 Gamb Cutter Date: 10/02/2020 00:29:53 Dictated By: CINDY CRESPO DO
[2020-10-02] MEDS: inSUlin ASPART (NovoLOG) 1 UNIT/0.01 ML (CHARGE PER UNIT) SQ SCH ×4 (00:51→17:16)
[2020-10-02] MEDS: RT-ALBUTEROL INHALER HFA (VENTOLIN HFA) 18 GM IH PRN (03:09)
[2020-10-02] MEDS: RT-ALBUTEROL INHALER HFA (VENTOLIN HFA) 18 GM IH SCH ×4 (03:10→21:38)
[2020-10-02 03:13] VITALS: BP 139/75
[2020-10-02] MEDS: APAP 325 MG/10.15 ML LIQ (TYLENOL) UDC PO PRN ×2 (03:34→17:17)
[2020-10-02 05:42] LABS: BASOPHILS % (AUTO) 1 % (0-10); EOSINOPHILS # (AUTO) 0.5 10^3/uL (0.0-0.3); EOSINOPHILS % (AUTO) 7 % (0-10); HEMATOCRIT 26 % (35-52); HEMOGLOBIN 8.5 g/dL (11.5-16.0); LYMPHOCYTES # (AUTO) 2.3 10^3/uL (1.0-4.0); LYMPHOCYTES % (AUTO) 35 % (12-44); MEAN CORPUSCULAR HEMOGLOBIN 29 pg (25-34); MEAN CORPUSCULAR HGB CONC 33 g/dL (32-36); MEAN CORPUSCULAR VOLUME 89 fL (80-99); MONOCYTES # (AUTO) 0.6 10^3/uL (0.0-1.0); MONOCYTES % (AUTO) 9 % (0-12); NEUTROPHILS % (AUTO) 46 % (42-75); PLATELET COUNT 250 10^3/uL (130-400); WHITE BLOOD COUNT 6.6 10^3/uL (4.3-11.0)
[2020-10-02 05:52] LABS: ALBUMIN 2.8 GM/DL (3.2-4.5); CHLORIDE 109 MMOL/L (98-107); POTASSIUM 3.6 MMOL/L (3.6-5.0); SODIUM 140 MMOL/L (135-145)
[2020-10-02 05:53] LABS: CALCIUM 7.5 MG/DL (8.5-10.1)
[2020-10-02 05:54] LABS: AMYLASE 89 U/L (25-125)
[2020-10-02 05:55] LABS: GLUCOSE 76 MG/DL (70-105); TOTAL PROTEIN 5.6 GM/DL (6.4-8.2)
[2020-10-02 05:56] LABS: CARBON DIOXIDE 18 MMOL/L (21-32)
[2020-10-02 05:57] LABS: BILIRUBIN,TOTAL 0.2 MG/DL (0.1-1.0)
[2020-10-02 05:58] LABS: ALKALINE PHOSPHATASE 68 U/L (40-136); PHOSPHORUS 3.5 MG/DL (2.3-4.7)
[2020-10-02 05:59] LABS: CREATININE SERUM 0.91 MG/DL (0.60-1.30); GFR ESTIMATED > 60
[2020-10-02 06:00] LABS: BUN/CREATININE RATIO 4
[2020-10-02 06:01] LABS: ALANINE AMINOTRANSFERASE 14 U/L (0-55); MAGNESIUM 1.4 MG/DL (1.6-2.4)
[2020-10-02 06:03] LABS: LIPASE 186 U/L (8-78)
[2020-10-02] MEDS: ACYCLOVIR INJECTION 500 MG in NS (IVPB) 100 ML IV SCH ×3 (06:16→21:38)
[2020-10-02 07:56] VITALS: BP 132/65
[2020-10-02] MEDS: DEXTROSE 10% IV SCH ×2 (08:25→19:55)
[2020-10-02] MEDS: PANTOPRAZOLE 40 MG (PROTONIX) VIAL IV SCH (08:25)
[2020-10-02] MEDS: risperiDONE 0.25 MG (RisperDAL) TAB PO SCH ×2 (08:25→21:38)
[2020-10-02] MEDS: meTOprolol TARTRATE 25 MG (LOPRESSOR) TABLET PO SCH ×2 (08:25→21:38)
[2020-10-02] MEDS: POTASSIUM CHLORIDE IV SCH ×2 (08:25→19:55)
--- NOTE | 2020-10-02 09:00 | Progress Note - Surgery ---
Subjective Date Seen by a Provider: Oct 02, 2020 Time Seen by a Provider: 07:15 Subjective/Events-last exam Pt alert and answering questions today. Rectal tube and Luna have been removed and pt is using restroom with assistance. Pt's sitter states pt is unsteady on her feet. Pt denies any pain in her abdomen or neck at site of central line placement. Objective Exam Vital Signs Date Time Temp Pulse Resp B/P (MAP) Pulse Ox O2 Delivery O2 Flow Rate FiO2 10/02/20 07:56 36.7 103 22 132/65 (87) 98 Room Air 10/02/20 05:31 37.3 10/02/20 03:13 37.5 96 19 139/75 (96) 96 Room Air 10/02/20 03:10 98 Room Air 10/01/20 23:16 37.4 101 21 135/80 (98) 98 Room Air 10/01/20 23:13 98 Room Air 10/01/20 21:30 99 Room Air 10/01/20 19:28 36.8 99 133/63 (86) 96 Room Air 10/01/20 16:31 36.6 98 28 138/88 (105) 98 Room Air 10/01/20 12:02 37.2 93 100 21 10/01/20 11:47 97 10/01/20 11:33 37.2 93 15 137/99 (112) 100 Room Air 10/01/20 10:10 94 Room Air I & O 10/02/20 07:00 Intake Total 1420 ml Output Total 4550 ml Balance -3130 ml Capillary Refill : Less Than 3 Seconds General Appearance: No Apparent Distress, WD/WN HEENT: Normal ENT Inspection, Other (site of prior central line on left is nontender and without palpable hematoma) Neck: Normal Inspection, Supple Respiratory: Chest Non Tender, Lungs Clear, Other (some tachypnea and labored breathing, improved from yesterday) Cardiovascular: No Murmur, Other (borderline tachycardia) Gastrointestinal: non tender, soft Extremity: Normal Inspection, Non Tender Neurologic/Psychiatric: Alert, No Motor/Sensory Deficits, Other (answers questions; oriented to self, location, and year; flat affect) Skin: Normal Color, Warm/Dry Lymphatic: No Adenopathy Results Lab Laboratory Tests 10/01/20 11:13: Glucometer 78 10/01/20 16:40: Glucometer 80 10/01/20 20:30: Glucometer 53*L 10/01/20 22:30: Glucometer 110 10/02/20 00:31: Glucometer 84 10/02/20 05:27: White Blood Count 6.6, Red Blood Count 2.93L, Hemoglobin 8.5L, Hematocrit 26L, Mean Corpuscular Volume 89, Mean Corpuscular Hemoglobin 29, Mean Corpuscular Hemoglobin Concent 33, Red Cell Distribution Width 13.6, Platelet Count 250, Mean Platelet Volume 10.0, Immature Granulocyte % (Auto) 2, Neutrophils (%) (Auto) 46, Lymphocytes (%) (Auto) 35, Monocytes (%) (Auto) 9, Eosinophils (%) (Auto) 7, Basophils (%) (Auto) 1, Neutrophils # (Auto) 3.0, Lymphocytes # (Auto) 2.3, Monocytes # (Auto) 0.6, Eosinophils # (Auto) 0.5H, Basophils # (Auto) 0.0, Immature Granulocyte # (Auto) 0.1, Sodium Level 140, Potassium Level 3.6, Chloride Level 109H, Carbon Dioxide Level 18L, Anion Gap 13, Blood Urea Nitrogen 4L, Creatinine 0.91, Estimat Glomerular Filtration Rate > 60, BUN/Creatinine Ratio 4, Glucose Level 76, Calcium Level 7.5L, Corrected Calcium 8.5, Phosphorus Level 3.5, Magnesium Level 1.4L, Total Bilirubin 0.2, Aspartate Amino Transf (AST/SGOT) 35H, Alanine Aminotransferase (ALT/SGPT) 14, Alkaline Phosphatase 68, Total Protein 5.6L, Albumin 2.8L, Amylase Level 89, Lipase 186H 10/02/20 05:28: Glucometer 77 Microbiology 09/29/20 Cryptosporidium/Giardia - Final, Complete 09/29/20 Catheter Tip Culture - Final, Complete No growth 09/27/20 - Preliminary, Resulted 09/22/20 MRSA Screen - Final, Complete MRSA not isolated 09/20/20 Urine Culture - Final, Complete NO GROWTH 09/19/20 Gram Stain - Final, Complete 09/19/20 Anaerobic Culture - Final, Complete No anaerobes isolated 09/19/20 Surgical Culture - Final, Complete No growth Assessment/Plan Assessment/Plan Assessment/Plan s/p induction of labor s/p respiratory failure ARF and anasarca-improved diarrhea poor venous access anemia continue medical management site of prior central line attempt has no palpable hematoma or any other concern PICC line placed could remove rectal tube if possible no findings of colovesicular fistula, would consider previous recs when want to further investigate will sign off, call if needed. Clinical Quality Measures DVT/VTE Risk/Contraindication: Risk Factor Score Per Nursin RFS Level Per Nursing on Admit: 1=Low/No VTE PPELADIO HOLLINGSWORTH MED STUDENT Oct 02, 2020 09:00
[2020-10-02] MEDS: LINEZOLID IVPB 300 ML IV SCH ×2 (09:02→21:39)
--- NOTE | 2020-10-02 09:28 | Physical Therapy Daily Note ---
PT Daily Note-Current Subjective Patient in recliner pre tx, agrees to PT, has no complaints of pain. Patient has a sitter in the room. Appearance Patient in recliner post tx with nurse call, phone, tray, all needs met, sitter in room. Mental Status Patient Orientation: Person, Confused Attachments: IV Transfers SCALE: Activities may be completed with or without assistive devices. 7-Aatthmzetm-jttemuu completes the activity by him/herself with no assistance from a helper. 5-Set-up or Clean-up Assistance-helper sets up or cleans up; patient completes activity. [place] assists only prior to or following the activity. 4-Supervision or Touching Assistance-helper provides verbal cues and/or touching/steadying and/or contact guard assistance as patient completes activity. Assistance may be provided throughout the activity or intermittently. 3-Partial/Moderate Assistance-helper does LESS THAN HALF the effort. [place] lifts, holds or supports trunk or limbs, but provides less than half the effort. 2-Substantial/Maximal Assistance-helper does MORE THAN HALF the effort. [place] lifts or holds trunk or limbs and provides more than half the effort. 6-Pokawrhsb-ypxwds does ALL the effort. Patient does none of the effort to complete the activity. Or, the assistance of 2 or more helpers is required for the patient to complete the activity. If activity was not attempted, code reason: 7-Patient Refused. 9-Not Applicable-not attempted and the patient did not perform the activity before the current illness, exacerbation or injury. 10-Not Attempted due to Environmental Limitations-(lack of equipment, weather restraints, etc.). 88-Not Attempted due to Medical Conditions or Safety Concerns. Sit to Stand (QC): 4 Chair/Lhi-cn-Asyvb Xfer(QC): 4 Weight Bearing Right Lower Extremity: Right Full Weight Bearing Left Lower Extremity: Left Full Weight Bearing Gait Training Distance: 200' Walk 10 feet (QC): 4 Walk 50 ft with 2 Turns(QC): 4 Walk 150 ft (QC): 4 Gait Persons Needed: 1 Gait Assistive Device: None SBA, occasional unsteadiness with turning but no assist needed to maintain balance. Slow ambulation. Treatments ambulation Assessment Current Status: Fair Progress Patient is progressing with functional mobility but has cognitive deficits. Patient has a flat affect, seems slow to process, impulsive. PT Short Term Goals Short Term Goals Time Frame: Oct 05, 2020 Roll Left & Right: 3 Sit to lyin Lying to sitting on side of be: 3 Sit to stand: 3 Chair/tls-kk-dfrgd transfer: 3 Toilet transfer: 3 Walk 10 feet: 3 PT Nursing Home Goals [place] Brush Assembler Goals PT [place] Brush Assembler Goals Time Frame: Oct 12, 2020 Roll Left & Right (QC): 6 Sit to Lying (QC): 6 Lying-Sitting on Side/Bed(QC): 6 Sit to Stand (QC): 6 Chair/Gmd-dc-Rbmcz Xfer(QC): 6 Toilet Transfer (QC): 6 Car Transfer (QC): 6 Does the Patient Walk: Yes Walk 10 feet (QC): 6 Walk 50ft with 2 Turns (QC): 6 Walk 150 ft (QC): 6 PT Plan Problem List Problem List: Activity Tolerance, Functional Strength, Safety, Balance, Gait, Transfer, Bed Mobility Treatment/Plan Treatment Plan: Continue Plan of Care Treatment Plan: Bed Mobility, Education, Functional Activity Hair, Functional Strength, Gait, Safety, Therapeutic Exercise, Transfers Treatment Duration: Oct 12, 2020 Frequency: 6 times per week Estimated Hrs Per Day: .25 hour per day Patient and/or Family Agrees t: Yes Safety Risks/Education Patient Education: Gait Training, Transfer Techniques, Correct Positioning, Sa fety Issues Teaching Recipient: Patient Teaching Methods: Demonstration, Discussion Response to Teaching: Reinforcement Needed Time/GCodes Time In: 904 Time Out: 914 Total Billed Treatment Time: 10 Total Billed Treatment 1 visit GT SHAILESH ERAZO PT Oct 02, 2020 09:27
--- NOTE | 2020-10-02 10:04 | Occupational Ther Daily Note ---
OT Current Status-Daily Note Subjective Pt alert, sitting in chair. Nrsg attempting to assist pt take shower. Pt states that she needs to go to the police. Nrsg and PARRY assured pt that all was okay and she needed to stay in the hospital and get better. Pt fixated on going to the police. Mental Status/Objective Patient Orientation: Person, Place, Time, Situation Attachments: IV ADL-Treatment Pt ambulates into bathroom, does not like anyone touching her and wants to do it by herself. Pt had 2 LOB and righted self. Pt able to doff/don underpants after set up. Dons/doff socks after set up. Assist to complete shower due to pt wanting to just go to police and not to shower. Pt is impulsive, so assist to complete all tasks for safety. After session, pt lying in bed still asking to go to the police. Sitter present in room. All needs met in room. Therapy Code Descriptions/Definitions Functional [place] Measure: 0=Not Assessed/NA 4=Minimal Assistance 1=Total Assistance 5=Supervision or Setup 2=Maximal Assistance 6=Modified [place] 3=Moderate Assistance 7=Complete IndependenceSCALE: Activities may be completed with or without assistive devices. 4-Kcicotcvie-qsrvwhg completes the activity by him/herself with no assistance from a helper. 5-Set-up or Clean-up Assistance-helper sets up or cleans up; patient completes activity. [place] assists only prior to or following the activity. 4-Supervision or Touching Assistance-helper provides verbal cues and/or touching/steadying and/or contact guard assistance as patient completes activity. Assistance may be provided throughout the activity or intermittently. 3-Partial/Moderate Assistance-helper does LESS THAN HALF the effort. [place] lifts, holds or supports trunk or limbs, but provides less than half the effort. 2-Substantial/Maximal Assistance-helper does MORE THAN HALF the effort. [place] lifts or holds trunk or limbs and provides more than half the effort. 6-Swcfuxexq-bkyeyp does ALL the effort. Patient does none of the effort to complete the activity. Or, the assistance of 2 or more helpers is required for the patient to complete the activity. If activity was not attempted, code reason: 7-Patient Refused. 9-Not Applicable-not attempted and the patient did not perform the activity before the current illness, exacerbation or injury. 10-Not Attempted due to Environmental Limitations-(lack of equipment, weather restraints, etc.). 88-Not Attempted due to Medical Conditions or Safety Concerns. Shower/Bathe Self (QC): 4 Lower Body Dressing (QC): 4 On/Off Footwear: 4 OT Short Term Goals Short Term Goals Time Frame: Oct 10, 2020 Eatin Oral hygiene: 3 Upper body dressin OT Long-Term Goals Long-Term Goals Time Frame: Oct 24, 2020 Eating (QC): 4 Oral Hygiene (QC): 4 Toileting Hygiene (QC): 3 Shower/Bathe Self (QC): 3 Upper Body Dressing (QC): 5 Lower Body Dressing (QC): 4 On/Off Footwear (QC): 4 Additional Goals: 1-Demonstrate ADL Tasks, 2-Verbalize Understanding, 3- ImproveStrength/Hair 1=Demonstrate adherence to instructed precautions during ADL tasks. 2=Patient will verbalize/demonstrate understanding of assistive devices/modifications for ADL. 3=Patient will improve strength/tolerance for activity to enable patient to perform ADL's. OT Education/Plan Problem List/Assessment Assessment: Decreased Activ Tolerance, Decreased Safety Aware, Impaired Cognition, Impaired Coordination, Impaired Funct Balance, Impaired Self-Care Skills Discharge Recommendations Plan/Recommendations: Continue POC Treatment Plan/Plan of Care Patient would benefit from OT for education, treatment and training to promote independence in ADL's, mobility, safety and/or upper extremity function for ADL's. Plan of Care: ADL Retraining, Functional Mobility, UE Funct Exercise/Act Treatment Duration: Oct 24, 2020 Frequency: 5 times per week Estimated Hrs Per Day: .25 hour per day Agreement: Yes Rehab Potential: Fair Time/GCodes Start Time: 09:32 Stop Time: 10:00 Total Time Billed (hr/min): 28 Billed Treatment Time 1 visit-ADL 2 (28 min) AMY BLAIR Oct 02, 2020 10:04
[2020-10-02 11:52] VITALS: BP 138/83
--- NOTE | 2020-10-02 12:20 | Progress Note - Hospitalist ---
CAROLINA MTZ MED STUDENT 10/02/20 1220: Subjective HPI/CC On Admission Date Seen by Provider: Oct 02, 2020 Time Seen by Provider: 08:45 Pt is a 20yoCF who was admitted to L&D for induction at 40.3wga due to being post dates. Induction was complicated by maternal fever and subsequent loss of variability in FHT and was taken for emergent . Overnight she developed cough and hypoxia as well and was transferred to the ICU. She reports she is feeling better now that she has a nonrebreather on. Her cough started abruptly this morning and her tmax was 40.1 last night. Subjective/Events-last exam She has much improved today. Appears more lucid than prior encounters. She is adamant about going home and tells me she fears being left in the hospital forever. She is tearful as she discusses this. She is ambulating well. Doing well since rectal tubing and telemetry were d/c. Reports a more formed BM this morning. She is still concerned about eating solid food due to fear of continued emesis and would like to stay on liquid diet and start slow. Continues to have a sitter for her confusion. Still on Zyvox and Acyclovir IV. Objective Exam Vital Signs Vital Signs Date Time Temp Pulse Resp B/P (MAP) Pulse Ox O2 Delivery O2 Flow Rate FiO2 10/02/20 11:52 36.5 91 22 138/83 (101) 100 Room Air 10/01/20 12:02 21 09/30/20 02:58 0.00 Capillary Refill : Less Than 3 Seconds General Appearance: WD/WN, Anxious HEENT: Normal ENT Inspection Neck: Non Tender, Supple Respiratory: Chest Non Tender, Lungs Clear, Normal Breath Sounds, No Accessory Muscle Use, No Respiratory Distress Cardiovascular: Regular Rate, Rhythm, No Edema, No Murmur, Normal Peripheral Pulses Gastrointestinal: Normal Bowel Sounds, Non Tender, Soft Extremity: Normal Inspection, Non Tender, No Pedal Edema Neurologic/Psychiatric: Alert; No Abnormal Gait; Disoriented Skin: Normal Color, Warm/Dry Results/Procedures Lab Laboratory Tests 10/02/20 05:27 Patient resulted labs reviewed. Imaging: Reviewed Imaging Report Assessment/Plan Assessment and Plan Assess & Plan/Chief Complaint s/p respiratory failure Persistent confusion of uncertain etiology s/p induction of labor with emergent Disability due to illness Acute renal failure Hypokalemia Tachycardia Elevated amylase and lipase Plan Advance diet as tolerated Monitor diarrhea and emesis concerns Continue antibiotic and antiviral regiment Continue to monitor confusion, sitter to help Continue PT, OT for mobility and safety concerns Amylase and lipase improved Clinical Quality Measures DVT/VTE Risk/Contraindication: Risk Factor Score Per Nursin RFS Level Per Nursing on Admit: 1=Low/No VTE PPX MELLISSA WEBER DO 10/03/20 0558: Subjective Subjective/Events-last exam Patient improved but still confusional episodes One on one remains Walking around pretty well Review of Systems General: Fatigue, Malaise Neurological: Confusion Objective Exam General Appearance: No Apparent Distress, WD/WN, Anxious, Chronically ill Respiratory: Chest Non Tender, Lungs Clear, Normal Breath Sounds, No Accessory Muscle Use, No Respiratory Distress Cardiovascular: Regular Rate, Rhythm Assessment/Plan Assessment and Plan Assess & Plan/Chief Complaint Anxiety is an issue Only becomes tachypneic when doctor examines her Supervisory-Addendum Brief Verification & Attestation Participated in pt care: history, MDM, physical Personally performed: exam, history, MDM, supervision of care Care discussed with: Medical Student Procedures: n/a Results interpretation: Verified all documentation Verification and Attestation of Medical Student E/M Service A medical student performed and documented this service in my presence. I reviewed and verified all information documented by the medical student and made modifications to such information, when appropriate. I personally performed the physical exam and medical decision making. Mellissa Weber, Oct 03, 2020,05:56 CAROLINA MTZ MED STUDENT Oct 02, 2020 12:20 MELLISSA WEBER DO Oct 03, 2020 05:58
--- NOTE | 2020-10-02 14:23 | NUR ---
CM/SS: Pt is walking in the halls and asked this worker about home. This worker shares with pt that she will come and see her later today. Plan: Undetermined at this time, pt is from home and has a significant other and a Summary: Pt is in bed at the time of the visit. Pt has a frightened look on her face. Pt is with a sitter and sitter reports she just woke up from sleeping. Pt is asked if she is ok and she just looks. She is encouraged to eat some jello and she shares that she can feed herself. This worker will follow up with her at a later time.
[2020-10-02] MEDS: ENOXAPARIN 40 MG/0.4 ML (LOVENOX) SYR SC SCH (14:41)
[2020-10-02 15:36] VITALS: BP 138/78
[2020-10-02 19:52] VITALS: BP 138/86
[2020-10-02] MEDS: LORazepam INJ 2 MG/ML (ATIVAN) VIAL IVP PRN (22:13)
[2020-10-03 00:18] VITALS: BP 148/89
[2020-10-03] MEDS: inSUlin ASPART (NovoLOG) 1 UNIT/0.01 ML (CHARGE PER UNIT) SQ SCH ×3 (00:26→12:03)
[2020-10-03] MEDS: LORazepam INJ 2 MG/ML (ATIVAN) VIAL IVP PRN (02:43)
[2020-10-03] MEDS: RT-ALBUTEROL INHALER HFA (VENTOLIN HFA) 18 GM IH SCH ×2 (03:07→08:15)
[2020-10-03] MEDS: HALOPERIDOL 5 MG/ML (HALDOL) VIAL IM PRN (03:21)
[2020-10-03 04:07] VITALS: BP 148/68
[2020-10-03] MEDS: ACYCLOVIR INJECTION 500 MG in NS (IVPB) 100 ML IV SCH ×2 (05:40→13:33)
[2020-10-03] MEDS: POTASSIUM CHLORIDE IV SCH ×2 (05:40→09:20)
[2020-10-03] MEDS: DEXTROSE 10% IV SCH ×2 (05:40→09:20)
[2020-10-03 05:56] LABS: HEMOGLOBIN 9.1 g/dL (11.5-16.0); MEAN PLATELET VOLUME 10.1 fL (9.0-12.2)
[2020-10-03 06:34] LABS: ALANINE AMINOTRANSFERASE 15 U/L (0-55); ALBUMIN 2.8 GM/DL (3.2-4.5); ALKALINE PHOSPHATASE 75 U/L (40-136); BILIRUBIN,TOTAL 0.2 MG/DL (0.1-1.0); BUN/CREATININE RATIO 4; CALCIUM 7.8 MG/DL (8.5-10.1); CARBON DIOXIDE 18 MMOL/L (21-32); CHLORIDE 110 MMOL/L (98-107); CREATININE SERUM 0.81 MG/DL (0.60-1.30); GFR ESTIMATED > 60; GLUCOSE 81 MG/DL (70-105); POTASSIUM 3.6 MMOL/L (3.6-5.0); SODIUM 139 MMOL/L (135-145); TOTAL PROTEIN 5.5 GM/DL (6.4-8.2)
[2020-10-03 08:00] VITALS: BP 141/91
--- NOTE | 2020-10-03 08:50 | NUR ---
IRF Evaluation Determination: Evaluation ongoing. Although patient is functioning with supervision, her cognitive function and impulsivity continue to be a concern. Will continue to follow patient's progress. The ARU continues to be capped at 8, with 8 patients currently on unit. Thank you for this referral.
[2020-10-03] MEDS: PANTOPRAZOLE 40 MG (PROTONIX) VIAL IV SCH (09:16)
[2020-10-03] MEDS: meTOprolol TARTRATE 25 MG (LOPRESSOR) TABLET PO SCH (09:17)
[2020-10-03] MEDS: risperiDONE 0.25 MG (RisperDAL) TAB PO SCH (09:17)
[2020-10-03] MEDS: LINEZOLID IVPB 300 ML IV SCH (09:17)
--- NOTE | 2020-10-03 09:41 | Physical Therapy Daily Note ---
PT Daily Note-Current Subjective Patient has a sitter present and patient is attempting to get OOB. Mental Status Patient Orientation: Confused Attachments: Central Line Transfers SCALE: Activities may be completed with or without assistive devices. 5-Ntczidbggw-tsaftum completes the activity by him/herself with no assistance from a helper. 5-Set-up or Clean-up Assistance-helper sets up or cleans up; patient completes activity. [place] assists only prior to or following the activity. 4-Supervision or Touching Assistance-helper provides verbal cues and/or touching/steadying and/or contact guard assistance as patient completes activit y. Assistance may be provided throughout the activity or intermittently. 3-Partial/Moderate Assistance-helper does LESS THAN HALF the effort. [place] lifts, holds or supports trunk or limbs, but provides less than half the effort. 2-Substantial/Maximal Assistance-helper does MORE THAN HALF the effort. [place] lifts or holds trunk or limbs and provides more than half the effort. 7-Nvdbetxal-vvqhje does ALL the effort. Patient does none of the effort to complete the activity. Or, the assistance of 2 or more helpers is required for the patient to complete the activity. If activity was not attempted, code reason: 7-Patient Refused. 9-Not Applicable-not attempted and the patient did not perform the activity before the current illness, exacerbation or injury. 10-Not Attempted due to Environmental Limitations-(lack of equipment, weather restraints, etc.). 88-Not Attempted due to Medical Conditions or Safety Concerns. Lying to Sitting/Side of Bed(Q: 6 Sit to Stand (QC): 5 Chair/Ecp-mv-Ehblq Xfer(QC): 4 Toilet Transfer (QC): 4 (assisted patient with cleansing after toileting. Patient pulls up underwear independently.) CGA for safety (PHARMACOGNOSIST) Weight Bearing Right Lower Extremity: Right Full Weight Bearing Left Lower Extremity: Left Full Weight Bearing Gait Training Does the Patient Walk?: Yes Distance: 400' Walk 10 feet (QC): 4 Walk 50 ft with 2 Turns(QC): 4 Walk 150 ft (QC): 4 Gait Assistive Device: None CGA for safety, patient pushes IV pole and ambulates without difficulty. No episodes of LOB Assessment Patient is up in recliner with SW present. Patient continues to ask for her mom and states she wants to go home. Patient mobility is functional but patient does demonstrate diminished safety awareness and is impulsive with sit to stand. PT Short Term Goals Short Term Goals Time Frame: Oct 05, 2020 Roll Left & Right: 3 Sit to lyin Lying to sitting on side of be: 3 Sit to stand: 3 Chair/gua-th-uwfdr transfer: 3 Toilet transfer: 3 Walk 10 feet: 3 PT Energy Efficiency Finance Manager Goals Alf Goals PT Alf Goals Time Frame: Oct 12, 2020 Roll Left & Right (QC): 6 Sit to Lying (QC): 6 Lying-Sitting on Side/Bed(QC): 6 Sit to Stand (QC): 6 Chair/Eho-vr-Rxraf Xfer(QC): 6 Toilet Transfer (QC): 6 Car Transfer (QC): 6 Does the Patient Walk: Yes Walk 10 feet (QC): 6 Walk 50ft with 2 Turns (QC): 6 Walk 150 ft (QC): 6 PT Plan Treatment/Plan Treatment Plan: Continue Plan of Care Treatment Plan: Bed Mobility, Education, Functional Activity Hair, Functional Strength, Gait, Safety, Therapeutic Exercise, Transfers Treatment Duration: Oct 12, 2020 Frequency: 6 times per week Estimated Hrs Per Day: .25 hour per day Patient and/or Family Agrees t: Yes Time/GCodes Time In: 857 Time Out: 920 Total Billed Treatment Time: 23 Total Billed Treatment 1 visit FA x 2 23 min YINA GARCIA PT Oct 03, 2020 09:41
[2020-10-03] MEDS ORDERED: RISP0.253 PO (11:40)
[2020-10-03] MEDS ORDERED: AMLO5TAB4 PO (11:40)
[2020-10-03] MEDS ORDERED: ALPR0.5T PO (11:40)
[2020-10-03] MEDS ORDERED: METO-333 PO (11:40)
--- NOTE | 2020-10-03 11:42 | D/C HH Face to Face Order ---
D/C Face to Face Orders Reconcile Patient Problems Problems Reviewed?: Yes Instructions for Patient Via [facility], Patient Instructions/FollowUp: [facility] 1 week Physician to follow Patient: [facility] Discharge Diet for Home: Eat Small Frequent Meals, Soft Diet Patient Problems: Emergent Delirium Anxiety Patient Data-Allergies,Ht & Wt Patient Allergies: Coded Allergies: No Known Drug Allergies (Unverified , 09/18/20) Home Health Need/Face to Face Date of Face to Face: Oct 03, 2020 Clinical Findings: Generalized weakness and fatigue, Instability, Muscle weakness, Unsteady gait I have seen Pt jeec-iq-yndq: Yes Discharged To: Home Diagnosis/Conditions: Emergent Delirium Anxiety Patient is Homebound due to: CognItive deficits, Josette fall risk due to instab ilty, Muscle weakness Homebound Status Due to the above stated illness, injury or surgical procedure (medical condition or diagnosis) and associated clinical findings, the patient is homebound because of his/her inability to leave home except with aid of a supportive device and/or person AND leaving the home requires a considerable and taxing effort or is medically contraindicated. Pt req the following assistanc: Aid of another person Home Health Nursing Orders Home Health Services Order: Nursing Services, Pipeline Construction Inspector-Evaluate & Treat, Physical Therapy-Evaluate & Treat Home Health Infusion Therapy Line Start Date: Sep 30, 2020 Certify Stmt I certify that this patient is under my care and that I, a nurse practitioner or a physician; a administrative assistant working with me, had a face to face encounter that - meets the physician face to face encounter requirements with this patient as dated. VAN WEBER DO Oct 03, 2020 11:42
--- NOTE | 2020-10-03 11:42 | Discharge Summary ---
Discharge Summary Hospital Course Was the Problem List Reviewed?: Yes Problems/Dx: (1) Acute respiratory failure Status: Acute Qualifiers: Qualified Codes: J96.01 - Acute respiratory failure with hypoxia (2) Person under investigation for COVID-19 Status: Resolved (3) Sepsis Status: Acute Qualifiers: Qualified Codes: A41.9 - Sepsis, unspecified organism; R65.20 - Severe sepsis without septic shock; J96.01 - Acute respiratory failure with hypoxia Hospital Course Date of Admission: Sep 18, 2020 at 19:24 Admission Diagnosis : Family Physician/Provider: No,Local Physician Date of Discharge: 10/03/20 Discharge Diagnosis: VDRF, severe metabolic encephalopathy, 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 She had severe delirium along with significant respiratory failure. She ultimately completed all of her antivirals and antibiotics and was deemed stable for discharge although post-[place] psychosis could still come into play. I did keep her on the Seroquel BID along with Xanax as needed and close follow-up with [facility]. Patient is a 20 yo female who was admitted after Emergent on 09/20 after induction was complicated by maternal fever and loss of variability on FHT. Cough and hypoxia necessitated ICU transfer, intubation and ventilation on 09/21. She was COVID negative after multiple tests. She was extubated on 09/25. Patient has been weak and confused since. 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 Arterial catheter culture from 09/26 grew Staphylococcus hominis and Staphylococcus warneri. She is on Linezolid, Metronidazole, and Acyclovir. She was evaluated for colovesicular fistula due to very watery diarrhea, which was found to be negative with injecting dye into the bladder. Her amylase and lipase were found to be elevated, though these have improved over subsequent days. She has had a sitter due to confusion episodes. She was transported to the fourth floor where rectal tubing, Luna catheter and telemetry were discontinued. She started walking around the floor with her sitter without physical issues. She continues to get physically stronger. Her appetite is down secondary to fears of emesis. She has nausea with most meals. She has episodes of confusion and has a strong desire to go home. Discharge is being considered to further aid in her recovery, as being surrounded by family and the presence of her baby might further ground her and clear the confusion episodes. CAROLINA MTZ MED STUDENT Labs and Pending Lab Test: Laboratory Tests 10/02/20 12:01: Glucometer 70 10/02/20 16:34: Glucometer 93 10/02/20 20:42: Glucometer 89 10/03/20 05:44: Glucometer 82 10/03/20 05:45: White Blood Count 6.0, Red Blood Count 3.12L, Hemoglobin 9.1L, Hematocrit 28L, Mean Corpuscular Volume 89, Mean Corpuscular Hemoglobin 29, Mean Corpuscular Hemoglobin Concent 33, Red Cell Distribution Width 13.5, Platelet Count 289, Mean Platelet Volume 10.1, Sodium Level 139, Potassium Level 3.6, Chloride Level 110H, Carbon Dioxide Level 18L, Anion Gap 11, Blood Urea Nitrogen 3L, Creatinine 0.81, Estimat Glomerular Filtration Rate > 60, BUN/Creatinine Ratio 4, Glucose Level 81, Calcium Level 7.8L, Corrected Calcium 8.8, Total Bilirubin 0.2, Aspartate Amino Transf (AST/SGOT) 31, Alanine Aminotransferase (ALT/SGPT) 15, Alkaline Phosphatase 75, Total Protein 5.5L, Albumin 2.8L Microbiology 09/29/20 Cryptosporidium/Giardia - Final, Complete 09/29/20 Catheter Tip Culture - Final, Complete No growth 09/27/20 - Final, Complete 09/22/20 MRSA Screen - Final, Complete MRSA not isolated 09/20/20 Urine Culture - Final, Complete NO GROWTH 09/19/20 Gram Stain - Final, Complete 09/19/20 Anaerobic Culture - Final, Complete No anaerobes isolated 09/19/20 Surgical Culture - Final, Complete No growth Home Meds Active Xanax (Alprazolam) 0.5 Mg Tablet 0.5 Mg PO Q4H PRN Norvasc (Amlodipine Besylate) 5 Mg Tablet 5 Mg PO DAILY Risperidone 0.25 Mg Tablet 0.25 Mg PO BID Metoprolol Tartrate 25 Mg Tablet 25 Mg PO BID Assessment/Pt Instructions [facility] 1 week Discharge Planning: <30 minutes discharge planning Discharge Physical Examination Vital Signs Vital Signs Date Time Temp Pulse Resp B/P (MAP) Pulse Ox O2 Delivery O2 Flow Rate FiO2 10/03/20 09:00 98 Room Air 10/03/20 08:00 36.5 100 22 141/91 (108) 10/01/20 12:02 21 09/30/20 02:58 0.00 General Appearance: No Apparent Distress, WD/WN, Anxious, Chronically ill Respiratory: Lungs Clear Cardiovascular: Regular Rate, Rhythm Allergies: Coded Allergies: No Known Drug Allergies (Unverified , 09/18/20) Discharge Summary Date of Admission Sep 18, 2020 at 19:24 Date of Discharge Discharge Date: Oct 03, 2020 Discharge Diagnosis Anxiety is an issue Only becomes tachypneic when doctor examines her (1) Acute respiratory failure Status: Acute Qualifiers: Qualified Codes: J96.01 - Acute respiratory failure with hypoxia (2) Person under investigation for COVID-19 Status: Resolved (3) Sepsis Status: Acute Qualifiers: Qualified Codes: A41.9 - Sepsis, unspecified organism; R65.20 - Severe sepsis without septic shock; J96.01 - Acute respiratory failure with hypoxia Clinical Quality Measures DVT/VTE Risk/Contraindication: Risk Factor Score Per Nursin RFS Level Per Nursing on Admit: 1=Low/No VTE PPX VAN WEBER DO Oct 03, 2020 11:42
[2020-10-03 12:00] VITALS: BP 135/85
--- NOTE | 2020-10-03 12:19 | Progress Note ---
CAROLINA MTZ MED STUDENT 10/03/20 1218: Progress Note Patient is a 20 yo female who was admitted after Emergent on 09/20 after induction was complicated by maternal fever and loss of variability on FHT. Cough and hypoxia necessitated ICU transfer, intubation and ventilation on 09/21. She was COVID negative after multiple tests. She was extubated on 09/25. Patient has been weak and confused since. 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 Arterial catheter culture from 09/26 grew Staphylococcus hominis and Staphylococcus warneri. She is on Linezolid, Metronidazole, and Acyclovir. She was evaluated for colovesicular fistula due to very watery diarrhea, which was found to be negative with injecting dye into the bladder. Her amylase and lipase were found to be elevated, though these have improved over subsequent days. She has had a sitter due to confusion episodes. She was transported to the fourth floor where rectal tubing, Luna catheter and telemetry were discontinued. She started walking around the floor with her sitter without physical issues. She continues to get physically stronger. Her appetite is down secondary to fears of emesis. She has nausea with most meals. She has episodes of confusion and has a strong desire to go home. Discharge is being considered to further aid in her recovery, as being surrounded by family and the presence of her baby might further ground her and clear the confusion episodes. MELLISSA WEBER DO 10/04/20 0510: Supervisory-Addendum Brief Verification & Attestation Participated in pt care: history, MDM, physical Personally performed: exam, history, MDM, supervision of care Care discussed with: Medical Student Procedures: n/a Results interpretation: Verified all documentation Verification and Attestation of Medical Student E/M Service A medical student performed and documented this service in my presence. I reviewed and verified all information documented by the medical student and made modifications to such information, when appropriate. I personally performed the physical exam and medical decision making. Mellissa Weber, Oct 04, 2020,05:10 CAROLINA MTZ MED STUDENT Oct 03, 2020 12:18 MELLISSA WEBER DO Oct 04, 2020 05:10
--- NOTE | 2020-10-03 13:26 | Occupational Ther Daily Note ---
OT Current Status-Daily Note Subjective Pt anxious about parents. Attempts to calm pt, able to after a time. Mental Status/Objective Patient Orientation: Person, Confused Attachments: IV ADL-Treatment Pt stated that her underpants were full. Assisted pt to bathroom with nurse tech due to pt's impulsivity and IV tubing/pole. Pt able to manipulate clothing, assist to cleanse. Pt stood at sink to wash hands. Pt continued to worry about her mother. Pt allowed PARRY to work knots out of hair which appeared to calm pt enough to have her lay down in bed to call her mother. Mod A to lay down in bed. After session, pt lying in bed with call light/phone in reach. All needs met in room. Therapy Code Descriptions/Definitions Functional [place] Measure: 0=Not Assessed/NA 4=Minimal Assistance 1=Total Assistance 5=Supervision or Setup 2=Maximal Assistance 6=Modified [place] 3=Moderate Assistance 7=Complete IndependenceSCALE: Activities may be completed with or without assistive devices. 4-Qnmgssqhsc-zviukco completes the activity by him/herself with no assistance from a helper. 5-Set-up or Clean-up Assistance-helper sets up or cleans up; patient completes activity. [place] assists only prior to or following the activity. 4-Supervision or Touching Assistance-helper provides verbal cues and/or touc kayy/steadying and/or contact guard assistance as patient completes activity. Assistance may be provided throughout the activity or intermittently. 3-Partial/Moderate Assistance-helper does LESS THAN HALF the effort. [place] lifts, holds or supports trunk or limbs, but provides less than half the effort. 2-Substantial/Maximal Assistance-helper does MORE THAN HALF the effort. [place] lifts or holds trunk or limbs and provides more than half the effort. 1-Goyifunej-dmdges does ALL the effort. Patient does none of the effort to complete the activity. Or, the assistance of 2 or more helpers is required for the patient to complete the activity. If activity was not attempted, code reason: 7-Patient Refused. 9-Not Applicable-not attempted and the patient did not perform the activity before the current illness, exacerbation or injury. 10-Not Attempted due to Environmental Limitations-(lack of equipment, weather restraints, etc.). 88-Not Attempted due to Medical Conditions or Safety Concerns. Toileting Hygiene (QC): 3 Toilet Transfer (QC): 4 OT Short Term Goals Short Term Goals Time Frame: Oct 10, 2020 Eatin Oral hygiene: 3 Upper body dressin OT Fpc Goals Fpc Goals Time Frame: Oct 24, 2020 Eating (QC): 4 Oral Hygiene (QC): 4 Toileting Hygiene (QC): 3 Shower/Bathe Self (QC): 3 Upper Body Dressing (QC): 5 Lower Body Dressing (QC): 4 On/Off Footwear (QC): 4 Additional Goals: 1-Demonstrate ADL Tasks, 2-Verbalize Understanding, 3- ImproveStrength/Hair 1=Demonstrate adherence to instructed precautions during ADL tasks. 2=Patient will verbalize/demonstrate understanding of assistive devices/modifications for ADL. 3=Patient will improve strength/tolerance for activity to enable patient to perform ADL's. OT Education/Plan Problem List/Assessment Assessment: Decreased Activ Tolerance, Decreased Safety Aware, Impaired Self- Care Skills Discharge Recommendations Plan/Recommendations: Continue POC Treatment Plan/Plan of Care Patient would benefit from OT for education, treatment and training to promote independence in ADL's, mobility, safety and/or upper extremity function for ADL's. Plan of Care: ADL Retraining, Functional Mobility, UE Funct Exercise/Act Treatment Duration: Oct 24, 2020 Frequency: 5 times per week Estimated Hrs Per Day: .25 hour per day Agreement: Yes Rehab Potential: Fair Time/GCodes Start Time: 11:30 Stop Time: 12:00 Total Time Billed (hr/min): 30 Billed Treatment Time 1 visit-FA 2 (30 min) AMY BLAIR Oct 03, 2020 13:26
[2020-10-03] MEDS: ENOXAPARIN 40 MG/0.4 ML (LOVENOX) SYR SC SCH (14:27)
--- NOTE | 2020-10-03 15:06 | NUR ---
CM/SS: Visited with pt as to plan for discharge - and coordinating services once discharged Plan: Pt will return home today. 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 She is reminded that she will be able to go home today and that this worker is needing to get information to call her family to have them pick her up. Pt is able to give this worker her the number to her aunt Casandra [phone], her father [phone]. Neither of them answer the phone. This worker has pt look in her phone and obtains a number for her mother and calls the number. Mother of pt speaks Tajik. She is able to get a sister of pt on the phone and she does speak [place]. She is able to translate for the information for the mother. They are able to give pt's address, [address] [place] [address] as well as verify information. They are able to picker machine operator pt form hospital. Pt is a little anxious and tearful. Pt is reassured and reminded that she will be going home today. Pt wants to hold this workers hand and is reassured ad calmed by doing so. Prescriptions faxed to [facility] [phone] - so that pt can picker machine operator medication when discharged. Telephone call to [facility] - [phone] - Home Care - fax [phone] to determine if they could take pt on as she does not have health insurance. They refer this worker to Sarita Sarmiento [phone] she sends over the application for [employer] in [place] and [place], this is printed to give to pt so that she can complete and send back. DALE Aranda is informed of the above information - to pass along at time of discharge Pt is reminded that she will be going home today, and pt expressed wanting a coke to drink, this worker gets her a coke to drink, she is able to take two sips and the cup is given to the one on one attendant to assist pt with the drink . This worker wishes her well.
--- NOTE | 2020-10-03 17:00 | NUR ---
DC'D PER WC TO HOME. DC INSTRUCTIONS GIVEN TO FAMILY MEMBER THAT CALLED IN WITH QUESTIONS. ALSO DC INSTRUCTIONS GIVEN TO FATHER WITH INSTRUCTIONS TO GO TO [facility] [place] TO GET RX. VERBALIZED UNDERSTANDING.
== END 2020-10-03 17:00 | disposition home health service (06) | DRG 786 ==
LOC: LDRP 19:24 → WS 09-19 13:34 → LDRP 09-19 13:34 → ICU 09-20 08:14 → CSD 09-27 10:37 → 4TH 10-01 11:45
PROVIDERS: ADMIT Family Medicine; ATTEND Internal Medicine
PROC: 3E033VJ Introduction of Other Hormone into Peripheral Vein, Percutaneous Approach (ICD-10-PCS; 2020-09-19)
PROC: 10D00Z1 Extraction of Products of Conception, Low, Open Approach (ICD-10-PCS; principal; 2020-09-19 20:00)
PROC: 5A1955Z Respiratory Ventilation, Greater than 96 Consecutive Hours (ICD-10-PCS; 2020-09-20)
PROC: 0BH17EZ Insertion of Endotracheal Airway into Trachea, Via Natural or Artificial Opening (ICD-10-PCS; 2020-09-20)
PROC: 5A09357 Assistance with Respiratory Ventilation, Less than 24 Consecutive Hours, Continuous Positive Airway Pressure (ICD-10-PCS; 2020-09-20)
PROC: XW033E5 Introduction of Remdesivir Anti-infective into Peripheral Vein, Percutaneous Approach, New Technology Group 5 (ICD-10-PCS; 2020-09-21)
PROC: XW13325 Transfusion of Convalescent Plasma (Nonautologous) into Peripheral Vein, Percutaneous Approach, New Technology Group 5 (ICD-10-PCS; 2020-09-21)
DX: O48.0 Post-term pregnancy (principal); O85 Puerperal sepsis; R65.20 Severe sepsis without septic shock; U07.1 COVID-19; J80 Acute respiratory distress syndrome; O90.4 Postpartum acute kidney failure; B37.1 Pulmonary candidiasis; R65.21 Severe sepsis with septic shock; O41.1230 Chorioamnionitis, third trimester, not applicable or unspecified; K85.90 Acute pancreatitis without necrosis or infection, unspecified; J12.89 Other viral pneumonia; E87.2 Acidosis; E87.0 Hyperosmolality and hypernatremia; Z99.11 Dependence on respirator [ventilator] status; T82.524A Displacement of infusion catheter, initial encounter; O76 Abnormality in fetal heart rate and rhythm complicating labor and delivery; Z37.0 Single live birth; O99.52 Diseases of the respiratory system complicating childbirth; E16.2 Hypoglycemia, unspecified; E87.6 Hypokalemia; R19.7 Diarrhea, unspecified; R41.0 Disorientation, unspecified; B00.9 Herpesviral infection, unspecified; O75.89 Other specified complications of labor and delivery; Z3A.40 40 weeks gestation of pregnancy
CPT/HCPCS: 36415; 36598; 36600; 70551; 71045; 71250; 71275; 74176; 76700; 76937; 80048; 80053; 80076; 80170; 80202; 81000; 82140; 82150; 82274; 82570; 82805; 82962; 83605; 83615; 83690; 83735; 83880; 84100; 84145; 84156; 84425; 84443; 84478; 84550; 85007; 85025; 85027; 85384; 85610; 86695; 86696; 86703; 86769; 86850; 86900; 86901; 86920; 87015; 87040; 87045; 87046; 87070; 87075; 87077; 87081; 87088; 87205; 87254; 87324; 87328; 87329; 87449; 87635; 87804; 87899; 88307; 93306; 94002; 94003; 94640; 94660; 94664; 94760; 94799